=== PATIENT | female | born 1950 | race Caucasian/White ===

== ENCOUNTER 2020-11-01 11:09 | Outpatient (REF) | payer MEDICARE, SELFPAY ==
[2020-11-01 13:34] LABS: Alanine Aminotransferase 13 U/L (0-31); Albumin Level 4.2 g/dL (3.5-5.0); Alkaline Phosphatase 58 U/L (39-117); Anion Gap 11 (12-20); Aspartate Amino Transferase 14 U/L (5-31); Bilirubin Total 0.5 mg/dL (0.0-1.0); Blood Urea Nitrogen 15 mg/dL (9-16); Calcium 9.5 mg/dL (8.4-10.2); Carbon Dioxide 30 mmol/L (22-29); Chloride 105 mmol/L (96-108); Estimated Glomerular Filt Rate 50; Glucose Random 93 mg/dL (60-115); Potassium 4.3 mmol/L (3.3-5.1); Sodium 142 mmol/L (135-145)
[2020-11-01 14:00] LABS: Thyroid Stimulating Hormone 1.57 uIU/mL (0.32-4.0)
== END 2020-11-01 11:10 | disposition home or self-care (01) ==
LOC: HO.LAB 11:09
PROVIDERS: PCP Internal Medicine; Visit Provider Internal Medicine
DX: Z00.00 Encounter for general adult medical examination without abnormal findings (principal); E03.9 Hypothyroidism, unspecified; I12.9 Hypertensive chronic kidney disease with stage 1 through stage 4 chronic kidney disease, or unspecified chronic kidney disease; N18.9 Chronic kidney disease, unspecified; I95.1 Orthostatic hypotension
CPT/HCPCS: 36415; 80053; 84443

== ENCOUNTER 2021-01-10 08:38 | Outpatient (REF) | payer MEDICARE, SELFPAY ==
[2021-01-10 09:52] LABS: Anion Gap 11 (12-20); Blood Urea Nitrogen 20 mg/dL (9-16); Calcium 8.9 mg/dL (8.4-10.2); Carbon Dioxide 29 mmol/L (22-29); Chloride 106 mmol/L (96-108); Estimated Glomerular Filt Rate 54; Potassium 4.1 mmol/L (3.3-5.1); Sodium 142 mmol/L (135-145)
== END 2021-01-10 08:39 | disposition home or self-care (01) ==
LOC: HO.LAB 08:38
PROVIDERS: PCP Internal Medicine; Visit Provider Internal Medicine Hypertension Specialist
DX: E87.6 Hypokalemia (principal); I15.2 Hypertension secondary to endocrine disorders
CPT/HCPCS: 36415; 80051; 82310; 82565; 84520

== ENCOUNTER 2021-06-04 08:04 | Outpatient (REF) | payer MEDICARE, SELFPAY ==
[2021-06-04 09:54] LABS: Basophils Absolute Auto 0.1 X10*3/uL (0.0-0.2); Basophils Percent Auto 1.1 % (0-2); Eosinophils Absolute Auto 0.2 X10*3/uL (0.0-0.4); Hemoglobin 12.3 g/dl (12.0-16.0); Imm Gran Abs Auto 0.01 X10*3/uL (0.00-0.03); Imm Gran Pct Auto 0.2 % (0.0-0.4); MANUAL DIFF FLAG SCAN; Mean Corpuscular Volume 92.8 fL (80-98); Platelet Count 145 X10*3/uL (160-400); SCAN SMEAR FLAG 1
[2021-06-04 09:56] LABS: Eosinophils Percent Auto 4.2 % (0-4); Hematocrit 38.6 % (37-47); Lymphocytes Absolute Auto 1.7 X10*3/uL (1.2-4.9); Lymphocytes Percent Auto 37.3 % (20-40); Mean Corpuscular HGB Conc 31.9 g/dl (31.0-35.0); Mean Corpuscular Hemoglobin 29.6 pg (27.0-33.0); Mean Platelet Volume 13.5 fL (9.4-12.3); Monocytes Absolute Auto 0.4 X10*3/uL (0.1-1.2); Neutrophils Absolute Auto 2.2 X10*3/uL (2.0-8.3); Neutrophils Percent Auto 49.2 % (45-73); Red Blood Count 4.16 X10*6/uL (4.20-5.50); Red Cell Distribution Width 13.6 % (11.0-16.0); White Blood Count 4.5 X10*3/uL (4.8-10.8)
[2021-06-04 10:04] LABS: Alanine Aminotransferase 13 U/L (0-31); Albumin Level 3.9 g/dL (3.5-5.0); Alkaline Phosphatase 55 U/L (39-117); Anion Gap 11 (12-20); Aspartate Amino Transferase 15 U/L (5-31); Bilirubin Total 0.6 mg/dL (0.0-1.0); Blood Urea Nitrogen 23 mg/dL (9-16); Carbon Dioxide 27 mmol/L (22-29); Chloride 106 mmol/L (96-108); Cholesterol 181 mg/dL; Estimated Glomerular Filt Rate 39; Glucose Random 92 mg/dL (60-115); HDL Cholesterol 69 mg/dL; LDL Cholesterol Calculated 98 mg/dl; Potassium 4.4 mmol/L (3.3-5.1); Sodium 140 mmol/L (135-145); Total Protein 6.4 g/dL (6.5-8.0); Triglycerides 72 mg/dL
[2021-06-04 10:37] LABS: PLT ABN DIST 1
[2021-06-04 12:58] LABS: SLIDE REVIEW VERIFIED
== END 2021-06-04 08:05 | disposition home or self-care (01) ==
LOC: HO.LAB 08:04
PROVIDERS: PCP Internal Medicine; Visit Provider Internal Medicine
DX: I12.9 Hypertensive chronic kidney disease with stage 1 through stage 4 chronic kidney disease, or unspecified chronic kidney disease (principal); E03.9 Hypothyroidism, unspecified; I95.1 Orthostatic hypotension; N18.9 Chronic kidney disease, unspecified
CPT/HCPCS: 36415; 80053; 80061; 84443; 85025

== ENCOUNTER 2021-08-13 07:55 | Outpatient (REF) | payer MEDICARE, SELFPAY ==
[2021-08-13 09:16] LABS: Anion Gap 10 (12-20); Blood Urea Nitrogen 24 mg/dL (9-16); Calcium 8.6 mg/dL (8.4-10.2); Carbon Dioxide 29 mmol/L (22-29); Chloride 106 mmol/L (96-108); Estimated Glomerular Filt Rate 51; Glucose Random 95 mg/dL (60-115); Potassium 4.1 mmol/L (3.3-5.1); Sodium 141 mmol/L (135-145)
== END 2021-08-13 07:56 | disposition home or self-care (01) ==
LOC: HO.LAB 07:55
PROVIDERS: PCP Internal Medicine; Visit Provider Internal Medicine Hypertension Specialist
DX: I95.1 Orthostatic hypotension (principal)
CPT/HCPCS: 36415; 80048

== ENCOUNTER 2021-09-10 07:12 | Outpatient (REF) | payer MEDICARE, SELFPAY ==
[2021-09-10 07:30] LABS: MANUAL DIFF FLAG NO
[2021-09-10 08:03] LABS: Basophils Absolute Auto 0.1 X10*3/uL (0.0-0.2); Basophils Percent Auto 1.4 % (0-2); Eosinophils Absolute Auto 0.2 X10*3/uL (0.0-0.4); Eosinophils Percent Auto 4.6 % (0-4); Hematocrit 43.1 % (37.0-47.0); Hemoglobin 13.5 g/dl (12.0-16.0); Imm Gran Abs Auto 0.01 X10*3/uL (0.00-0.03); Imm Gran Pct Auto 0.2 % (0.0-0.4); Lymphocytes Absolute Auto 1.7 X10*3/uL (1.2-4.9); Lymphocytes Percent Auto 39.5 % (20-40); Mean Corpuscular HGB Conc 31.3 g/dl (31.0-35.0); Mean Corpuscular Hemoglobin 29.1 pg (27.0-33.0); Mean Corpuscular Volume 92.9 fL (80.0-98.0); Mean Platelet Volume 12.7 fL (9.4-12.3); Monocytes Absolute Auto 0.4 X10*3/uL (0.1-1.2); Monocytes Percent Auto 8.3 % (2-11); Platelet Count 168 X10*3/uL (160-400); Red Blood Count 4.64 X10*6/uL (4.20-5.50); Red Cell Distribution Width 13.4 % (11.0-16.0); White Blood Count 4.3 X10*3/uL (4.8-10.8)
[2021-09-10 08:19] LABS: Alanine Aminotransferase 20 U/L (0-31); Albumin Level 4.2 g/dL (3.5-5.0); Alkaline Phosphatase 57 U/L (39-117); Anion Gap 11 (12-20); Aspartate Amino Transferase 19 U/L (5-31); Bilirubin Total 0.5 mg/dL (0.0-1.0); Blood Urea Nitrogen 25 mg/dL (9-16); Calcium 9.4 mg/dL (8.4-10.2); Carbon Dioxide 29 mmol/L (22-29); Chloride 107 mmol/L (96-108); Estimated Glomerular Filt Rate 39; Glucose Random 97 mg/dL (60-115); Potassium 4.5 mmol/L (3.3-5.1); Sodium 142 mmol/L (135-145); Total Protein 7.1 g/dL (6.5-8.0)
== END 2021-09-10 07:13 | disposition home or self-care (01) ==
LOC: HO.LAB 07:12
PROVIDERS: PCP Internal Medicine; Visit Provider Internal Medicine
DX: E03.9 Hypothyroidism, unspecified (principal); E78.00 Pure hypercholesterolemia, unspecified; I12.9 Hypertensive chronic kidney disease with stage 1 through stage 4 chronic kidney disease, or unspecified chronic kidney disease; I95.1 Orthostatic hypotension
CPT/HCPCS: 36415; 80053; 85025

== ENCOUNTER 2022-01-10 08:22 | Outpatient (REF) | payer MEDICARE, SELFPAY ==
[2022-01-10 09:23] LABS: Alanine Aminotransferase 16 U/L (0-31); Alkaline Phosphatase 59 U/L (39-117); Anion Gap 13 (12-20); Aspartate Amino Transferase 16 U/L (5-31); Bilirubin Total 0.8 mg/dL (0.0-1.0); Blood Urea Nitrogen 14 mg/dL (9-16); Calcium 9.4 mg/dL (8.4-10.2); Carbon Dioxide 26 mmol/L (22-29); Chloride 105 mmol/L (96-108); Estimated Glomerular Filt Rate 56; Glucose Random 96 mg/dL (60-115); Potassium 4.8 mmol/L (3.3-5.1); Sodium 139 mmol/L (135-145); Total Protein 6.9 g/dL (6.5-8.0)
[2022-01-10 09:45] LABS: Thyroid Stimulating Hormone 0.97 uIU/mL (0.32-4.0)
== END 2022-01-10 08:23 | disposition home or self-care (01) ==
LOC: HO.LAB 08:22
PROVIDERS: PCP Internal Medicine; Visit Provider Internal Medicine
DX: E03.9 Hypothyroidism, unspecified (principal); E78.00 Pure hypercholesterolemia, unspecified; I12.9 Hypertensive chronic kidney disease with stage 1 through stage 4 chronic kidney disease, or unspecified chronic kidney disease; N18.9 Chronic kidney disease, unspecified; I95.1 Orthostatic hypotension
CPT/HCPCS: 36415; 80053; 84443

== ENCOUNTER 2022-04-29 07:41 | Outpatient (REF) | payer MEDICARE, SELFPAY ==
[2022-04-29 08:30] LABS: Anion Gap 13 (12-20); Blood Urea Nitrogen 15 mg/dL (9-16); Calcium 8.8 mg/dL (8.4-10.2); Carbon Dioxide 27 mmol/L (22-29); Chloride 106 mmol/L (96-108); Estimated Glomerular Filt Rate 59; Glucose Random 98 mg/dL (60-115); Potassium 4.5 mmol/L (3.3-5.1); Sodium 141 mmol/L (135-145)
== END 2022-04-29 07:42 | disposition home or self-care (01) ==
LOC: HO.LAB 07:41
PROVIDERS: PCP Internal Medicine; Visit Provider Internal Medicine Hypertension Specialist
DX: I10 Essential (primary) hypertension (principal)
CPT/HCPCS: 36415; 80048

== ENCOUNTER 2022-06-03 07:31 | Outpatient (REF) | payer MEDICARE, SELFPAY ==
[2022-06-03 07:53] LABS: MANUAL DIFF FLAG NO
[2022-06-03 08:16] LABS: Basophils Absolute Auto 0.1 X10*3/uL (0.0-0.2); Basophils Percent Auto 1.5 % (0-2); Eosinophils Absolute Auto 0.2 X10*3/uL (0.0-0.4); Eosinophils Percent Auto 4.9 % (0-4); Hematocrit 40.4 % (37.0-47.0); Hemoglobin 12.8 g/dl (12.0-16.0); Imm Gran Abs Auto 0.01 X10*3/uL (0.00-0.03); Imm Gran Pct Auto 0.2 % (0.0-0.4); Lymphocytes Absolute Auto 1.5 X10*3/uL (1.2-4.9); Lymphocytes Percent Auto 36.1 % (20-40); Mean Corpuscular HGB Conc 31.7 g/dl (31.0-35.0); Mean Corpuscular Volume 91.4 fL (80.0-98.0); Mean Platelet Volume 12.4 fL (9.4-12.3); Monocytes Absolute Auto 0.4 X10*3/uL (0.1-1.2); Monocytes Percent Auto 8.5 % (2-11); Neutrophils Percent Auto 48.8 % (45-73); Platelet Count 137 X10*3/uL (160-400); Red Blood Count 4.42 X10*6/uL (4.20-5.50); Red Cell Distribution Width 13.5 % (11.0-16.0); White Blood Count 4.1 X10*3/uL (4.8-10.8)
[2022-06-03 08:55] LABS: Alanine Aminotransferase 16 U/L (0-31); Albumin Level 4.1 g/dL (3.5-5.0); Alkaline Phosphatase 60 U/L (39-117); Anion Gap 14 (12-20); Aspartate Amino Transferase 16 U/L (5-31); Bilirubin Total 0.5 mg/dL (0.0-1.0); Blood Urea Nitrogen 18 mg/dL (9-16); Calcium 8.7 mg/dL (8.4-10.2); Carbon Dioxide 26 mmol/L (22-29); Chloride 105 mmol/L (96-108); Cholesterol 182 mg/dL; Estimated Glomerular Filt Rate 53; Glucose Random 93 mg/dL (60-115); HDL Cholesterol 73 mg/dL; LDL Cholesterol Calculated 99 mg/dl; Potassium 4.3 mmol/L (3.3-5.1); Sodium 141 mmol/L (135-145); Total Protein 6.9 g/dL (6.5-8.0); Triglycerides 50 mg/dL
[2022-06-03 09:02] LABS: Thyroid Stimulating Hormone 1.15 uIU/mL (0.32-4.0)
== END 2022-06-03 07:32 | disposition home or self-care (01) ==
LOC: HO.LAB 07:31
PROVIDERS: PCP Internal Medicine; Visit Provider Internal Medicine
DX: E03.8 Other specified hypothyroidism (principal); H91.90 Unspecified hearing loss, unspecified ear; I10 Essential (primary) hypertension; I95.1 Orthostatic hypotension
CPT/HCPCS: 36415; 80053; 80061; 84443; 85025

== ENCOUNTER 2022-11-27 11:00 | Outpatient (REF) | payer MEDICARE, SELFPAY ==
[2022-11-27 11:13] LABS: MANUAL DIFF FLAG NO
[2022-11-27 12:05] LABS: Basophils Percent Auto 0.7 % (0-2); Eosinophils Absolute Auto 0.1 X10*3/uL (0.0-0.4); Eosinophils Percent Auto 1.7 % (0-4); Hematocrit 42.5 % (37.0-47.0); Hemoglobin 13.4 g/dl (12.0-16.0); Imm Gran Abs Auto 0.01 X10*3/uL (0.00-0.03); Imm Gran Pct Auto 0.2 % (0.0-0.4); Lymphocytes Absolute Auto 1.3 X10*3/uL (1.2-4.9); Lymphocytes Percent Auto 29.3 % (20-40); Mean Corpuscular HGB Conc 31.5 g/dl (31.0-35.0); Mean Corpuscular Hemoglobin 28.8 pg (27.0-33.0); Mean Corpuscular Volume 91.2 fL (80.0-98.0); Mean Platelet Volume 13.2 fL (9.4-12.3); Monocytes Absolute Auto 0.4 X10*3/uL (0.1-1.2); Monocytes Percent Auto 7.6 % (2-11); Neutrophils Absolute Auto 2.8 x10*3/uL (2.0-8.3); Neutrophils Percent Auto 60.5 % (45-73); Platelet Count 151 X10*3/uL (160-400); Red Blood Count 4.66 X10*6/uL (4.20-5.50); Red Cell Distribution Width 13.3 % (11.0-16.0); White Blood Count 4.6 X10*3/uL (4.8-10.8)
[2022-11-27 13:23] LABS: Alanine Aminotransferase 17 U/L (0-31); Albumin Level 4.2 g/dL (3.5-5.0); Alkaline Phosphatase 58 U/L (39-117); Anion Gap 12 (12-20); Aspartate Amino Transferase 17 U/L (5-31); Bilirubin Total 0.8 mg/dL (0.0-1.0); Blood Urea Nitrogen 19 mg/dL (9-16); Calcium 9.7 mg/dL (8.4-10.2); Carbon Dioxide 30 mmol/L (22-29); Chloride 105 mmol/L (96-108); Estimated Glomerular Filt Rate 57; Glucose Random 89 mg/dL (60-115); Potassium 4.8 mmol/L (3.3-5.1); Sodium 142 mmol/L (135-145); Total Protein 6.9 g/dL (6.5-8.0)
== END 2022-11-27 11:01 | disposition home or self-care (01) ==
LOC: HO.LAB 11:00
PROVIDERS: PCP Internal Medicine; Visit Provider Internal Medicine
DX: D64.89 Other specified anemias (principal); E03.8 Other specified hypothyroidism; I10 Essential (primary) hypertension; I95.1 Orthostatic hypotension
CPT/HCPCS: 36415; 80053; 85025

== ENCOUNTER 2022-12-23 07:51 | Outpatient (REF) | payer MEDICARE, SELFPAY ==
[2022-12-23 08:13] LABS: MANUAL DIFF FLAG NO
[2022-12-23 08:22] LABS: Basophils Absolute Auto 0.1 X10*3/uL (0.0-0.2); Basophils Percent Auto 1.2 % (0-2); Eosinophils Absolute Auto 0.2 X10*3/uL (0.0-0.4); Eosinophils Percent Auto 4.7 % (0-4); Hematocrit 41.4 % (37.0-47.0); Hemoglobin 13.3 g/dl (12.0-16.0); Imm Gran Abs Auto 0.01 X10*3/uL (0.00-0.03); Imm Gran Pct Auto 0.2 % (0.0-0.4); Lymphocytes Absolute Auto 1.5 X10*3/uL (1.2-4.9); Mean Corpuscular HGB Conc 32.1 g/dl (31.0-35.0); Mean Corpuscular Hemoglobin 29.4 pg (27.0-33.0); Mean Corpuscular Volume 91.6 fL (80.0-98.0); Mean Platelet Volume 12.8 fL (9.4-12.3); Monocytes Absolute Auto 0.4 X10*3/uL (0.1-1.2); Monocytes Percent Auto 8.2 % (2-11); Neutrophils Absolute Auto 2.2 x10*3/uL (2.0-8.3); Neutrophils Percent Auto 50.7 % (45-73); Platelet Count 152 X10*3/uL (160-400); Red Blood Count 4.52 X10*6/uL (4.20-5.50); Red Cell Distribution Width 13.4 % (11.0-16.0); White Blood Count 4.3 X10*3/uL (4.8-10.8)
[2022-12-23 09:22] LABS: Alanine Aminotransferase 18 U/L (0-31); Albumin Level 3.9 g/dL (3.5-5.0); Alkaline Phosphatase 60 U/L (39-117); Anion Gap 12 (12-20); Aspartate Amino Transferase 16 U/L (5-31); Bilirubin Total 1.1 mg/dL (0.0-1.0); Blood Urea Nitrogen 18 mg/dL (9-16); Calcium 9.1 mg/dL (8.4-10.2); Carbon Dioxide 28 mmol/L (22-29); Chloride 108 mmol/L (96-108); Cholesterol 193 mg/dL; Estimated Glomerular Filt Rate 50; Glucose Random 96 mg/dL (60-115); HDL Cholesterol 75 mg/dL; LDL Cholesterol Calculated 105 mg/dl; Potassium 4.6 mmol/L (3.3-5.1); Sodium 143 mmol/L (135-145); Total Protein 6.4 g/dL (6.5-8.0); Triglycerides 67 mg/dL
[2022-12-23 09:30] LABS: Thyroid Stimulating Hormone 0.62 uIU/mL (0.32-4.0)
== END 2022-12-23 07:52 | disposition home or self-care (01) ==
LOC: HO.LAB 07:51
PROVIDERS: PCP Internal Medicine; Visit Provider Internal Medicine
DX: D69.49 Other primary thrombocytopenia (principal); E03.8 Other specified hypothyroidism; I10 Essential (primary) hypertension; I95.1 Orthostatic hypotension; R19.5 Other fecal abnormalities
CPT/HCPCS: 36415; 80053; 80061; 84443; 85025

== ENCOUNTER 2023-02-06 08:55 | Day surgery (SDC) | payer MEDICARE, SELFPAY ==
--- NOTE | 2023-02-05 11:04 | HO.ANESPROP2 ---
HPI - Anesthesia Eval Consult details Narrative: 73yo F for Colonoscopy PMFSH Past Medical History Medical History Blind left eye CKD (chronic kidney disease) History of fracture of wrist History of orthostatic hypotension History of palpitations HTN (hypertension) Hypothyroid Leukopenia Thrombocytopenia Surgical History Surgical History History of surgery on wrist Social History Social History Patient Tobacco Use Status: Former Tobacco user Are you DNR?: No Advance Directives: No Advance Directives Information Provided: Yes Nutrition Risks: No Nutritional Risk Patient : Yes : Yes Poor oral hygiene: Yes Meds Allergies Allergy/AdvReac Type Severity Reaction Status Date / Time diltiazem [From CARDIZEM] Allergy Intermediate RASH Verified 03/21/22 06:12 ITCHING oxycodone [OXYCODONE] Allergy Unknown NAUSEA & Verified 03/21/22 06:12 VOMITING Home Medications Medication Instructions Recorded Confirmed Last Taken Type levothyroxine 112 mcg tablet 1 tab PO DAILY 03/15/22 03/15/22 02/06/23 History losartan 50 mg tablet 1 tab PO DAILY 03/15/22 03/15/22 02/04/23 History midodrine 2.5 mg tablet 1 tab PO BID 03/15/22 03/15/22 02/06/23 History metoprolol succinate 25 mg 25 mg PO DAILY 02/06/23 02/06/23 02/06/23 History tablet,extended release 24 hr Exam Exam Date and Time: February 05, 2023 1104 Pertinent Lab Results Pertinent Lab Results: Laboratory Tests 12/23/22 12/23/22 08:12 08:12 WBC 4.3 L Hgb 13.3 Hct 41.4 Sodium 143 Potassium 4.6 Chloride 108 Carbon Dioxide 28 BUN 18 H Creatinine 1.08 Cholesterol 193 Assessment and Plan Assessment Anesthesia Assessment: Chart Reviewed
[2023-02-06 09:02] VITALS: BMI 25.2
[2023-02-06 09:08] VITALS: BP 197/93; PULSE 99; RESP 18; TEMP 36.1; O2SAT 98
[2023-02-06] MEDS: Lactated Ringers 1,000 ML 100 ML IVCONT (09:34)
--- NOTE | 2023-02-06 09:37 | PC.NURSE ---
anesthesia aware of b/p
--- NOTE | 2023-02-06 09:56 | PC.NURSE ---
fleets enema given yellow results
[2023-02-06 10:06] VITALS: BP 184/82; PULSE 77; RESP 18; TEMP 36.3; O2SAT 97
--- NOTE | 2023-02-06 10:57 | MHC.SHP ---
Pre-Procedural Eval Section A Date of Service: 02/06/23 Section B Chief Complaint: Other fecal abnormalities Details of Present Illness: see H*P Relevant Family History (Specify if Yes): No Relevant Social History: None Present Medications: see Short Stay Collaborative assessment Medical History: No relevant PMH History of Previous Operations: No relevant previous surgery Allergies: Allergies Allergy/AdvReac Type Severity Reaction Status Date / Time diltiazem [From CARDIZEM] Allergy Intermediate RASH Verified 03/21/22 06:12 ITCHING oxycodone [OXYCODONE] Allergy Unknown NAUSEA & Verified 03/21/22 06:12 VOMITING Review of Systems Sugical H&P ROS: Negative: Constitution, Cardiovascular, Respiratory, Neurological, Psychiatric, Hem-Onc, Allergic/Immunologic, Gastrointestinal, Genitourinary, Musculoskeletal, Integumentary, Endocrine and Eyes/Ears/Nose/Throat Exam Surgical H&P Exam: Normal: HEENT, Normal: Heart, Normal: Lungs, Normal: Extremities, Normal: Abdomen, Normal: Skin and Normal: Neurological Plan Diagnosis/Plan: Unchanged I have reviewed the history and physical and performed a pertinent physical examination on my patient. No changes have occurred unless specified. Time Spent With Patient Time: Total time managing care of this patient today ____ minutes.
--- NOTE | 2023-02-06 11:30 | PM.OP ---
Brief Operative Note Date of Service: 02/06/23 Pre-op diagnosis: abnl stool dna test Post-op diagnosis: same Surgeon: Mike Mejias Anesthesia: MAC Was an Steel Post Installer used for this Procedure?: No Estimated blood loss (mL): 0 Pathology: none sent Condition: stable Disposition: PACU
[2023-02-06 11:33] VITALS: BP 117/64; PULSE 81; RESP 20; TEMP 37; O2SAT 99
[2023-02-06 11:48] VITALS: BP 164/83; PULSE 71; RESP 20; O2SAT 97
--- NOTE | 2023-02-06 13:26 | OP_ITS ---
DATE OF SERVICE: 02/06/2023 SURGEON: Mike Mejias MD INDICATIONS: Abnormal stool DNA testing. PREOPERATIVE DIAGNOSIS: POSTOPERATIVE DIAGNOSIS: PROCEDURE PERFORMED: Colonoscopy to the terminal ileum. ESTIMATED BLOOD LOSS: COMPLICATIONS: ANESTHESIA: Monitored anesthesia care. ASSISTANTS: SPECIMENS: DESCRIPTION OF PROCEDURE: A history and physical was performed. The risks and benefits of the procedure were explained to the patient. Informed consent was obtained. The patient was placed in the left lateral decubitus position. A digital rectal exam was performed and was found to be normal. The Olympus pediatric video colonoscope was introduced into the rectum and advanced to the cecum. The cecum was identified by transillumination, palpation, and identification of ileocecal valve. Examination was performed. The scope was removed. She tolerated the procedure well and was returned to the recovery area in stable condition. FINDINGS: The terminal ileum was examined and appeared normal. The visualized colonic mucosa was normal. The quality of the prep was good. No polyps were identified. Retroflexed examination was normal. IMPRESSION: Normal colonoscopy. RECOMMENDATION: 1. Follow up as needed. 2. Repeat colonoscopy is recommended in 10 years for average risk individuals. This will be optional based on the patient's age. MD TAYLOR Sharp/GIRISH / [id number]
== END 2023-02-06 12:30 | disposition home or self-care (01) ==
PROVIDERS: PCP Internal Medicine; Visit Provider Internal Medicine Gastroenterology
PROC: 0DJD8ZZ Inspection of Lower Intestinal Tract, Via Natural or Artificial Opening Endoscopic (ICD-10-PCS; CPT 45378; principal; 2023-02-06 10:20)
DX: R19.5 Other fecal abnormalities (principal); I12.9 Hypertensive chronic kidney disease with stage 1 through stage 4 chronic kidney disease, or unspecified chronic kidney disease; N18.9 Chronic kidney disease, unspecified; Z79.899 Other long term (current) drug therapy; Z88.5 Allergy status to narcotic agent; Z88.8 Allergy status to other drugs, medicaments and biological substances
CPT/HCPCS: 45378

== ENCOUNTER → 2023-02-08 08:53 | Outpatient (BNVA) | payer MEDICARE, SELFPAY | PROVIDERS: PCP Internal Medicine; Referring Provider Internal Medicine; Visit Provider Internal Medicine | DX: R07.2 Precordial pain (principal); I10 Essential (primary) hypertension; Z86.79 Personal history of other diseases of the circulatory system; Z82.49 Family history of ischemic heart disease and other diseases of the circulatory system | CPT/HCPCS: 93005; 99202 ==

== ENCOUNTER → 2023-04-02 07:52 | Outpatient (REF) | payer MEDICARE, SELFPAY ==
--- NOTE | ~2023-04-02 | NM_ITS ---
EXERCISE MYOCARDIAL PERFUSION STUDY INDICATION: Chest pain, assess for coronary disease ischemia TECHNIQUE: The patient was brought in for an exercise perfusion study on 04/02/2023. Patient performed exercise as per Titi protocol and was injected 25 mCi of sestamibi once target heart rate was achieved. Images were obtained using the SPECT gamma camera interlaced with the gating device. Images were obtained in supine position. Resting perfusion study was performed on 04/04/2023. Patient was administered 25 mCi of sestamibi intravenously at rest. Images were then obtained in supine position. Images were processed with the software and compared side to side in short axis, horizontal long axis and vertical long axis views. Total DLP 75mGy-cm. FINDINGS: Raw images were reviewed. The stress perfusion study showed no significant perfusion abnormality. Both uncorrected as well as CT attenuation corrected images were reviewed. The gated study shows normal LV systolic function with calculated LVEF of 68%. LV cavity is normal in size. The gated study shows normal wall thickening and contraction of segments. Resting study shows no significant perfusion abnormality. Gating at rest reveals normal wall motion with ejection fraction at 51%. The findings are consistent with no clear reversible or fixed perfusion abnormality. NM/NM lucille perf SPECT rest & str IMPRESSION: 1. Myocardial perfusion imaging study shows normal myocardial perfusion. 2. Gated LVEF is 68% during stress and 50% during rest. 3. Transient ischemic dilatation not present. EKG component of the test reported separately.
--- NOTE | 2023-04-02 07:56 | CA_ITS ---
Acquisition Time: 2023-04-02 08:42:09 Total Exercise Time: 00:05:31 Test Indications: CP Medications: LEVOTHYROXINE LOSARTAN METOPROLOL MIDODRINE Protocol: VIVI Max HR: 141 BPM 95% of Pred: 147 BPM Max BP: 190/090 mmHG Max Work Load: 7.0 METS Exercise stess test exercise 5 min 31 sec of Vivi protocol achieving 95% MPHR, with mild SOB, no chest dsicomfort, with isolated PVCs and PACs, with normotensive response to exericse, without EKG changes. Nuclear images pending. Test reviewed with Dr. Sepulveda. Pt has resting HTN 158/78. Max during exercise 178/100 and max [id number]. Did not take her medications today. PT reports no symptoms. Reports baseline is often in 170s for systolic. Referred By: Nazanin Sepulveda Overread By: NAZANIN SEPULVEDA
--- NOTE | 2023-04-02 07:56 | CA_ITS ---
Transthoracic Echocardiogram Patient (Last, First, Middle): Annie Kaufman, Gender: Female Date of : 1950 Age: 73 Procedure Date: 04/02/2023 Procedure Type: Transthoracic Echocardiogram Location: OP Height: 170.18 cm Weight: 63.5 kg BSA: 1.74 m2 Heart Rate: 74 bpm BP: 148 / 80 mmHg Flume Worker: SB Referring MD: Garland Alegria MD Student Outreach Coordinator: Chito Lira MD Symptoms: I25.10 - Atherosclerotic heart disease of [place] coronary artery without... Study Quality: Adequate ECG Rhythm: Sinus Conclusions: - 1. Mildly reduced LV ejection fraction with LVEF of 45-50% 2. Normal cardiac valvular Dopplers 3. Small circumferential pericardial effusion Findings Left Ventricle Normal left ventricular cavity size. There is normal left ventricular wall thickness. The left ventricular systolic function is mildly decreased. There is mild global hypokinesis. Spectral Doppler is indicative of an impaired relaxation filling pattern. E/E prime ratio is between 8 and 15 consistent with indeterminate filling pressures. Right Ventricle Normal right ventricular cavity size and systolic function. Atria The left atrium is likely dilated. There is no evidence of interatrial shunt. The right atrium is normal in size. Aortic Valve Normal aortic valve structure and function. There is no aortic valve stenosis. There is no aortic valve regurgitation. Mitral Valve Normal mitral valve structure and function. There is trace mitral valve regurgitation. There is no mitral valve stenosis. Pulmonic Valve The pulmonic valve is likely normal. There is mild pulmonic valve regurgitation. Tricuspid Valve Normal tricuspid valve structure. Tricuspid regurgitation envelope is inadequate for calculation of right ventricular systolic pressure. Indeterminate right atrial pressure. Great Vessels All visible segments of the aorta are normal in size. The pulmonary artery was not well visualized. Venous The inferior vena cava is normal in size and collapses greater than 50% with inspiration. Pericardium/Pleural There is a small circumferential pericardial effusion. There are no definitive echocardiographic findings of tamponade physiology. Prior Study Comparison Changes noted compared to prior study dated: 04/13/2017. LV systolic function appears mildly reduced Measurements 2D Linear Measurements IVSd: 1.15 0.6-0.9/0.6-1.0 cm LVIDd: 4.13 3.9-5.3/4.2-5.9 cm LVIDd Index: 2.37 2.4-3.2/2.2-3.1 cm/m2 LVIDs: 3.32 2.0-3.6 cm LVPWd: 1.18 0.7-1.1 cm LA Diam: 4.10 2.7-3.8/3.0-4.0 cm LAIDs Index: 2.36 1.5-2.3 cm/m2 LV Mass: 207.11 67-162/88-224 g LV Mass Index: 119.03 43-95/49-115 g/m2 LVOT Diam: 2.10 3.0+(-)1.3 cm 2D Systolic Function EF Teich: 41.00 >55% EF 4C: 44.60 >55% Mitral Valve MV Pk E: 0.60 MV PK A: 0.85 MV Decel Time: 127.00 E/A: 0.70 E'Lateral: 3.70 E'Medial: 4.90 E/E' Med: 12.20 E/E' Lat: 16.10 PHT: 37.00 MVA PHT: 5.95 Decel Burnett: 4.69 Aortic Valve AoV Pk Duarte: 0.93 AoV Pk Grad: 3.00 FORREST: 2.97 LVOT LVOT Pk Duarte: 0.70 LVOT Mn Duarte: 0.55 LVOT VTI: 0.18 LVOT Pk Grad: 2.00 LVOT Mn Grad: 1.00 LVOT Diam: 2.10 LVOT Area: 3.46 Diastolic Function MV Pk E: 0.60 MV Pk A: 0.85 E/A: 0.70 E'Medial: 4.90 E/E' Med: 12.20 E' Laterial: 3.70 E/E' Lat: 16.10 Right Ventricle TAPSE (mm): 21.30 TVS' Duarte: 15.00 Tricuspid Valve TR Pk Duarte: 2.10 TR Pk Grad: 18.00 RA Press: 3.00 Great Vessels Aorta Sinus of Valsalva: 3.10 2.0-3.5 cm Ao Asc: 3.10 2.1-3.4 cm Pulmonary Valve PV Pk Duarte: 0.88 Peak PV Grad: 3.00 Updated in Other Vendor System with Status of Final Chito Lira MD electronically signed on 04/03/2023 11:59:20 AM with status of Final
== END ==
LOC: HO.CARD 07:52
PROVIDERS: Visit Provider Internal Medicine
DX: R07.2 Precordial pain (principal); I25.10 Atherosclerotic heart disease of native coronary artery without angina pectoris
CPT/HCPCS: 78452; 93017; 93306; A9500

== ENCOUNTER → 2023-04-02 07:56 | Outpatient (BNV) | payer MEDICARE, SELFPAY | PROVIDERS: Visit Provider Internal Medicine Cardiovascular Disease | DX: I37.1 Nonrheumatic pulmonary valve insufficiency (principal); I31.39 Other pericardial effusion (noninflammatory); R06.02 Shortness of breath | CPT/HCPCS: 78452; 93016; 93018; 93306 ==

== ENCOUNTER 2023-04-12 10:57 | Outpatient (REF) | payer MEDICARE, SELFPAY ==
--- NOTE | ~2023-04-12 | XR_ITS ---
EXAMINATION: XR KNEE, BILATERAL CLINICAL INFORMATION: Bilateral knee pain. COMPARISON: 06/13/2018 TECHNIQUE: AP standing view of both knees and sunrise and lateral views of the left knee. FINDINGS: There is no evidence of acute fracture or dislocation of the knees. On standing view there is mild narrowing of the medial joint space compartment of the right knee. There is a small left knee effusion. No destructive bony lesions identified. There are prominent vascular calcifications present. XR/XR knee standing BI IMPRESSION: Small left knee effusion. Mild narrowing of the right knee medial joint space.
--- NOTE | ~2023-04-12 | XR_ITS ---
EXAMINATION: XR KNEE, BILATERAL CLINICAL INFORMATION: Bilateral knee pain. COMPARISON: 06/13/2018 TECHNIQUE: AP standing view of both knees and sunrise and lateral views of the left knee. FINDINGS: There is no evidence of acute fracture or dislocation of the knees. On standing view there is mild narrowing of the medial joint space compartment of the right knee. There is a small left knee effusion. No destructive bony lesions identified. There are prominent vascular calcifications present. XR/XR knee LT 2V IMPRESSION: Small left knee effusion. Mild narrowing of the right knee medial joint space.
== END 2023-04-12 10:58 | disposition home or self-care (01) ==
LOC: HO.HOSX 10:57
PROVIDERS: Visit Provider Orthopaedic Surgery
DX: M17.0 Bilateral primary osteoarthritis of knee (principal)
CPT/HCPCS: 73560; 73565; 99202

== ENCOUNTER 2023-04-12 12:23 | Outpatient (AMB) | payer MEDICARE, SELFPAY ==
--- NOTE | 2023-04-12 12:43 | MHC.OFFVIS ---
Intake Vital Signs 04/12/23 12:44 Height 5 ft 5.5 in Weight 150 lb BMI 24.6 Intake Visit Reasons: N/P left knee pain Intake Note: Annie 73 yr old female presents today for her left knee pain. States pain started about 2 months ago. No injury she can recall. States she was having increase pain from sit to stand position only. States currently her pain has improved. She is now only having pain in her medial aspect of knee and pressure behind her knee. States no prior treatment. Allergies diltiazem [From CARDIZEM] Allergy (Intermediate, Verified 04/12/23 12:47) RASH ITCHING oxycodone [OXYCODONE] Allergy (Unknown, Verified 04/12/23 12:47) NAUSEA & VOMITING HPI N/P left knee pain HPI Details Annie is a 73 year old woman who presents with complaints of left knee pain, onset ~2 months ago. She has pain primarily when standing from a seated position, which has improved in the last few weeks as she has been icing her knee. She denies any pain with activity once she is standing or after she has sat down. She localizes her pain primarily in the medial aspect of her knee, along with feeling pressure in he back of her knee. She denies any falls or known injury. She denies any prior treatment. She is unable to take NSAIDs. [facility] Medical History Blind left eye CKD (chronic kidney disease) History of fracture of wrist History of orthostatic hypotension History of palpitations HTN (hypertension) Hypothyroid Leukopenia Thrombocytopenia Surgical History History of surgery on wrist Hx of colonoscopy Family History Mother Heart problem H/O heart bypass surgery Father Heart problem H/O heart bypass surgery Sister Heart problem H/O heart bypass surgery Social History Patient Tobacco Use Status: Former Tobacco user Review of Systems Const All systems reviewed & are unremarkable except as noted in HPI and below Physical Exam Vital Signs: BMI result Body Mass Index 24.6 Const General: no acute distress, alert and awake Orientation/consciousness: patient oriented x3 HEENT Head: Yes normocephalic and Yes atraumatic Eyes EOM: EOMs intact bilaterally Resp Effort & Inspection: normal respiratory effort and able to speak in complete sentences Cardio Jugular venous distension: no JVD Skin General skin exam: turgor normal Rashes: no rashes Neuro General: patient oriented x3 Extrem Other: Left Knee: TTP medial tibial plateau No effusion Normal gait Full ROM Psych Appearance: grossly normal Affect: normal affect Attitude: cooperative Results Reviewed Results Reviewed: I personally reviewed relevant radiographs. Mild bilateral knee osteoarthritis, R>L Assessment & Plan Assessment & Plan (1) Bilateral primary osteoarthritis of knee: Code(s): M17.0 - Bilateral primary osteoarthritis of knee Plan: This is a 73 year old woman with mild bilateral knee OA. She had pain primarily when standing from a seated position, but this has been improving with rest & icing. Her current pain is mild in the medial aspect of her knee. She denies any prior treatment. I discussed her diagnosis and treatment options. No acute intervention warranted. If her symptoms worsen she can follow up to discuss injections or PT, she is unable to take NSAIDs. She can follow up prn. Plan Scribed for Yayo Maldonado MD by Rupert Yo, medical and health services manager, on 04/12/23 at 12:55 PM, EST. Orders: Orders XR knee LT 2V Today M25.569 - Pain in unspecified knee XR knee standing BI Today M25.569 - Pain in unspecified knee Coding Level of Care Code New Pt Level 3 (61724) Diagnoses Bilateral primary osteoarthritis of knee M17.0
[2023-04-12 12:44] VITALS: BMI 24.6
== END 2023-04-12 13:00 | disposition home or self-care (01) ==
PROVIDERS: PCP Internal Medicine; Visit Provider Orthopaedic Surgery
DX: M17.0 Bilateral primary osteoarthritis of knee (principal)
CPT/HCPCS: 99203

== ENCOUNTER 2023-05-05 07:49 | Outpatient (REF) | payer MEDICARE, SELFPAY ==
[2023-05-05 09:10] LABS: Anion Gap 12 (12-20); Blood Urea Nitrogen 29 mg/dL (9-16); Calcium 9.4 mg/dL (8.4-10.2); Carbon Dioxide 26 mmol/L (22-29); Chloride 108 mmol/L (96-108); Estimated Glomerular Filt Rate 38; Glucose Random 98 mg/dL (60-115); Potassium 4.1 mmol/L (3.3-5.1); Sodium 142 mmol/L (135-145)
== END 2023-05-05 07:50 | disposition home or self-care (01) ==
LOC: HO.LAB 07:49
PROVIDERS: PCP Internal Medicine; Visit Provider Internal Medicine Hypertension Specialist
DX: I95.1 Orthostatic hypotension (principal)
CPT/HCPCS: 36415; 80048

== ENCOUNTER 2023-06-13 09:12 | Outpatient (REF) | payer MEDICARE, SELFPAY ==
[2023-06-13 09:29] LABS: MANUAL DIFF FLAG NO
[2023-06-13 10:14] LABS: Basophils Absolute Auto 0.1 X10*3/uL (0.0-0.2); Basophils Percent Auto 1.6 % (0-2); Eosinophils Absolute Auto 0.1 X10*3/uL (0.0-0.4); Eosinophils Percent Auto 2.5 % (0-4); Hematocrit 41.8 % (37.0-47.0); Imm Gran Abs Auto 0.01 X10*3/uL (0.00-0.03); Imm Gran Pct Auto 0.2 % (0.0-0.4); Lymphocytes Absolute Auto 1.4 X10*3/uL (1.2-4.9); Lymphocytes Percent Auto 32.4 % (20-40); Mean Corpuscular HGB Conc 31.1 g/dl (31.0-35.0); Mean Corpuscular Hemoglobin 29.1 pg (27.0-33.0); Mean Corpuscular Volume 93.7 fL (80.0-98.0); Mean Platelet Volume 12.8 fL (9.4-12.3); Monocytes Absolute Auto 0.3 X10*3/uL (0.1-1.2); Monocytes Percent Auto 6.7 % (2-11); Neutrophils Absolute Auto 2.5 x10*3/uL (2.0-8.3); Neutrophils Percent Auto 56.6 % (45-73); Platelet Count 148 X10*3/uL (160-400); Red Blood Count 4.46 X10*6/uL (4.20-5.50); White Blood Count 4.4 X10*3/uL (4.8-10.8)
[2023-06-13 11:41] LABS: Alanine Aminotransferase 12 U/L (0-31); Albumin Level 4.1 g/dL (3.5-5.0); Alkaline Phosphatase 55 U/L (39-117); Anion Gap 13 (12-20); Aspartate Amino Transferase 13 U/L (5-31); Bilirubin Total 0.7 mg/dL (0.0-1.0); Blood Urea Nitrogen 21 mg/dL (9-16); Calcium 9.5 mg/dL (8.4-10.2); Carbon Dioxide 26 mmol/L (22-29); Chloride 105 mmol/L (96-108); Estimated Glomerular Filt Rate 50; Glucose Random 92 mg/dL (60-115); Potassium 4.2 mmol/L (3.3-5.1); Sodium 140 mmol/L (135-145); Total Protein 7.1 g/dL (6.5-8.0)
[2023-06-13 11:47] LABS: Thyroid Stimulating Hormone 0.43 uIU/mL (0.32-4.0)
== END 2023-06-13 09:13 | disposition home or self-care (01) ==
LOC: HO.LAB 09:12
PROVIDERS: PCP Internal Medicine; Visit Provider Internal Medicine
DX: E03.8 Other specified hypothyroidism (principal); I10 Essential (primary) hypertension; I95.1 Orthostatic hypotension
CPT/HCPCS: 36415; 80053; 84443; 85025

== ENCOUNTER 2023-08-20 10:21 | Outpatient (AMB) | payer MEDICARE, SELFPAY ==
--- NOTE | 2023-08-20 10:26 | MHC.OFFVIS ---
Intake Vital Signs 08/20/23 10:27 Height 5 ft 5.5 in Weight 136 lb 10.986 oz BMI 22.4 BP 168/84 H Blood Pressure Location Lt brachial Position Sitting Pulse 78 Intake Visit Reasons: follow up after testing Intake Note: follow up Accompanied by: Self / Same As Patient Allergies diltiazem [From CARDIZEM] Allergy (Intermediate, Verified 08/20/23 10:28) RASH ITCHING oxycodone [OXYCODONE] Allergy (Unknown, Verified 08/20/23 10:28) NAUSEA & VOMITING Medication List - Last Reconciled 08/20/23 by Garland Alegria MD levothyroxine 112 mcg PO DAILY losartan 100 mg orally; night metoprolol succinate ER 25 mg PO DAILY midodrine 2.5 mg PO BID HPI HPI Comments History of Present Illness Details Annie returns for follow-up. Recently seen in consultation regarding chest discomfort. For the last few months she has been noting some discomfort in the chest that feels like a tightness. However, this happens only when she tries to go back to sleep after urination at nighttime. During the daytime she does not have any of the symptoms. No other complaints like shortness of breath or anything else cardiac sounding. There is a concern because of family history of coronary disease/CABG in her parents and sister. Patient herself has hypertension but does not seem like as well controlled as she also has orthostatic hypotension. Hence she takes both blood pressure medications and midodrine. Today's blood pressure is also high. Several previous blood pressures are also high. She also goes to Dr. Echeverria, nephrology for this reason. Patient states that she takes losartan nighttime. Also on metoprolol XL. [facility] Medical History (Reviewed 04/12/23 @ 12:47 by Radha Ash [facility]) Blind left eye CKD (chronic kidney disease) History of fracture of wrist History of orthostatic hypotension History of palpitations HTN (hypertension) Hypothyroid Leukopenia Thrombocytopenia Surgical History Hx of colonoscopy History of surgery on wrist Family History Mother Heart problem H/O heart bypass surgery Father Heart problem H/O heart bypass surgery Sister Heart problem H/O heart bypass surgery Patient Tobacco Use Status: Former Tobacco user Review of Systems Const Denies weakness ENT Denies dizziness Card Denies chest pain, Denies chest pain with activity, Denies syncope, Denies rapid heart rate, Denies pedal edema, Denies edema, Denies leg edema, Denies lightheadedness, Denies palpitations, Denies dyspnea, Denies dyspnea on exertion and Denies orthopnea Resp Denies cough, Denies dyspnea and Denies dyspnea on exertion GI Denies hematochezia and Denies change in stool character Musc Denies abnormal gait, Denies muscle cramps, Denies muscle weakness, Denies numbness, Denies radiating pain into limb and Denies tingling Neuro Denies abnormal gait, Denies dizziness, Denies syncope, Denies numbness, Denies tingling and Denies weakness Endo Denies palpitations Physical Exam Vital Signs: Last Vital Signs Pulse 78 08/20/23 10:27 BP 168/84 H 08/20/23 10:27 BMI result Body Mass Index 22.4 Const General: comfortable and no acute distress Orientation/consciousness: patient oriented x3 HEENT Other: Unremarkable Head: Yes normal to inspection Neck Neck: Yes normal visual inspection Chest Chest palpation & inspection: normal inspection of the chest Resp Auscultation: clear to auscultation bilaterally Cardio Palpation: normal PMI Heart sounds: S1 normal heart sound present, S2 normal heart sound present, no gallops, no murmurs and no rubs GI Palpation (GI): Soft to palpation Back/Spine/Pelvis Other: unremarkable Skin General skin exam: no rashes or lesions noted Neuro General: patient oriented x3 Extrem General: Yes normal to inspection Psych Mental Status: mental status grossly normal Assessment & Plan Assessment & Plan (1) Precordial chest pain: Code(s): R07.2 - Precordial pain (2) HTN (hypertension): Code(s): I10 - Essential (primary) hypertension Qualifiers: Hypertension type: primary hypertension Qualified Code(s): I10 - Essential (primary) hypertension (3) Orthostatic hypotension: Code(s): I95.1 - Orthostatic hypotension (4) Cardiomyopathy: Code(s): I42.9 - Cardiomyopathy, unspecified Qualifiers: Cardiomyopathy type: unspecified Qualified Code(s): I42.9 - Cardiomyopathy, unspecified Plan Cardiac studies reviewed. Echocardiogram with LVEF of 45-50%. Mild global hypokinesis. In the exercise stress test, she exercised for 7 METS and reached and reached 90% of max predicted heart rate. Blood pressure went up to 190/90 mm Hg. No EKG evidence of ischemia. Perfusion imaging unremarkable. Overall, it appears to me that her symptoms are probably from high blood pressure as opposed to anything else. Somewhat of a difficult situation as she history of orthostatic dizziness as well. I suggested to her that we can probably stop the midodrine completely and just focus only on the high blood pressure as that is probably what is causing her mild cardiomyopathy as well as chest pressure symptoms. She is reluctant as she feels that will make her dizziness worse. Hence, we will try to get a formal tilt-table test. In the interim, at least try to cut back on the midodrine and see how she feels. Will also refer back to Dr. Echeverria, her real estate services administrator. Total time spent including review of data, counseling, documentation, coordination of care-31 minutes. Orders: Orders ECG Tilt Table Test Today I95.1 - Orthostatic hypotension Referrals Nephrology Referral I95.1 - Orthostatic hypotension Coding Level of Care Code Est Pt Level 4 (34081) Diagnoses Precordial chest pain R07.2 Primary hypertension I10 Hypertension type: primary hypertension Orthostatic hypotension I95.1 Cardiomyopathy, unspecified type I42.9 Cardiomyopathy type: unspecified
[2023-08-20 10:27] VITALS: BP 168/84; PULSE 78; BMI 22.4
== END 2023-08-20 10:50 | disposition home or self-care (01) ==
PROVIDERS: PCP Internal Medicine; Visit Provider Internal Medicine
DX: R07.2 Precordial pain (principal); I10 Essential (primary) hypertension; I95.1 Orthostatic hypotension; I42.9 Cardiomyopathy, unspecified
CPT/HCPCS: 99214

== ENCOUNTER → 2023-08-20 10:21 | Outpatient (BNVA) | payer MEDICARE, SELFPAY | PROVIDERS: PCP Internal Medicine; Visit Provider Internal Medicine | DX: R07.2 Precordial pain (principal); I10 Essential (primary) hypertension; I95.1 Orthostatic hypotension; I42.9 Cardiomyopathy, unspecified | CPT/HCPCS: 99212 ==

== ENCOUNTER 2023-08-21 13:19 | Outpatient (AMB) | payer MEDICARE, SELFPAY ==
[2023-08-21 13:41] VITALS: BP 158/90; PULSE 76; O2SAT 97; BMI 22.9
--- NOTE | 2023-08-21 13:41 | A.OFFVIS_ITS ---
Intake Vital Signs 08/21/23 13:41 Height 5 ft 5 in Weight 137 lb 6 oz BMI 22.9 BP 158/90 H Blood Pressure Location Rt brachial Position Sitting Pulse 76 Pulse Source Pulse Oximeter Pulse Oximetry (%) 97 Oxygen Delivery Method Room Air Intake Visit Reasons: CKD Plant Associate Required: No Accompanied by: Self / Same As Patient Allergies diltiazem [From CARDIZEM] Allergy (Intermediate, Verified 08/21/23 13:41) RASH ITCHING oxycodone [OXYCODONE] Allergy (Unknown, Verified 08/21/23 13:41) NAUSEA & VOMITING HPI HPI Comments History of Present Illness Details 73-year-old woman with a history of supi ne hypertension and orthostatic hypotension. Renal function stable. Occasionally she has lightheadedness when she stands up. Currently she is on losartan 100 mg and metoprolol 25 mg q.p.m.. She takes midodrine 2.5 mg twice a day. She underwent a stress test back in January 2023. This is high blood pressure was as high as 190 mmHg. She is being followed by Cardiology and his tilt-table test has been scheduled. [facility] Medical History History of palpitations History of orthostatic hypotension Thrombocytopenia Leukopenia History of fracture of wrist HTN (hypertension) Hypothyroid CKD (chronic kidney disease) Blind left eye Surgical History Hx of colonoscopy History of surgery on wrist Family History Mother Heart problem H/O heart bypass surgery Father Heart problem H/O heart bypass surgery Sister Heart problem H/O heart bypass surgery Social History Patient Tobacco Use Status: Former Tobacco user Review of Systems Const Denies fever(s) and Denies weight loss Card Denies chest pain Resp Denies cough and Denies hemoptysis GI Denies abdominal pain, Denies diarrhea and Denies nausea Musc Denies back pain Neuro Denies focal weakness Physical Exam Vital Signs: Last Vital Signs Pulse 76 08/21/23 13:41 BP 158/90 H 08/21/23 13:41 Pulse Ox 97 08/21/23 13:41 Oxygen Delivery Method Room Air 08/21/23 13:41 BMI result Body Mass Index 22.9 Supine blood pressure 160/80 Sitting blood pressure 160/80 Standing blood pressure 140/80 Const General: comfortable; No acute distress Orientation/consciousness: patient oriented x3 Eyes General: appearance normal, both eyes and all related structures Visual Cee: normal visual cee by confrontation Neck Neck: Yes supple and Yes no JVD Resp Effort & Inspection: normal respiratory effort and respiratory effort not decreased Auscultation: rhonchi Cardio Palpation: no palpable S3 and no palpable S4 Heart sounds: no rubs GI Inspection: Yes normal to inspection Palpation (GI): Soft to palpation Percussion: Yes normal to percussion Auscultation: normal bowel sounds General: Yes no CVA tenderness Back/Spine/Pelvis Back: no CVA tenderness Skin General skin exam: no petechiae and no purpura Neuro General: patient oriented x3 and no focal motor deficits Extrem General: No clubbing and No edema Results Reviewed Results Reviewed: All lab results and stress test was reviewed. Assessment & Plan Assessment & Plan (1) Orthostatic hypotension: Comment: Supine hypertension with orthostatic hypotension. Code(s): I95.1 - Orthostatic hypotension Plan: Based on the current blood pressure readings I would still hold the midodrine. I have advised her to take me midodrine as needed if the systolic blood pressure is less than 110 mm of mercury. In the meantime I will continue losartan 100 mg and metoprolol 20 mg in the evening. Await tilt-table test. Coding Level of Care Code Est Pt Level 3 (70148) Diagnoses Orthostatic hypotension I95.1
== END 2023-08-21 14:03 | disposition home or self-care (01) ==
PROVIDERS: PCP Internal Medicine; Visit Provider Internal Medicine Hypertension Specialist
DX: I95.1 Orthostatic hypotension (principal)
CPT/HCPCS: 99213

== ENCOUNTER → 2023-08-21 13:19 | Outpatient (BNVA) | payer MEDICARE, SELFPAY | PROVIDERS: PCP Internal Medicine; Visit Provider Internal Medicine Hypertension Specialist | DX: I95.1 Orthostatic hypotension (principal) | CPT/HCPCS: 99212 ==

== ENCOUNTER 2023-12-08 07:45 | Outpatient (REF) | payer MEDICARE, SELFPAY ==
[2023-12-08 09:03] LABS: Alanine Aminotransferase 17 U/L (0-31); Alkaline Phosphatase 57 U/L (39-117); Anion Gap 12 (12-20); Aspartate Amino Transferase 17 U/L (5-31); Bilirubin Total 0.7 mg/dL (0.0-1.0); Blood Urea Nitrogen 17 mg/dL (9-16); Calcium 9.2 mg/dL (8.4-10.2); Carbon Dioxide 27 mmol/L (22-29); Chloride 108 mmol/L (96-108); Cholesterol 184 mg/dL (<200); Estimated Glomerular Filt Rate 46; Glucose Random 97 mg/dL (60-115); HDL Cholesterol 78 mg/dL (>40); LDL Cholesterol Calculated 92 mg/dL (<100); Sodium 143 mmol/L (135-145); Total Protein 7.1 g/dL (6.5-8.0); Triglycerides 74 mg/dL (<150)
[2023-12-08 09:21] LABS: Thyroid Stimulating Hormone 0.29 uIU/mL (0.32-4.0); Vitamin D 25-OH Total 29.5 ng/mL (>30)
== END 2023-12-08 07:46 | disposition home or self-care (01) ==
LOC: HO.LAB 07:45
PROVIDERS: PCP Internal Medicine; Visit Provider Internal Medicine
DX: E03.8 Other specified hypothyroidism (principal); I10 Essential (primary) hypertension; I95.1 Orthostatic hypotension; M81.8 Other osteoporosis without current pathological fracture
CPT/HCPCS: 36415; 80053; 80061; 82306; 84443

== ENCOUNTER 2023-12-20 14:23 | Outpatient (AMB) | payer MEDICARE, SELFPAY ==
[2023-12-20 14:24] VITALS: BP 128/88; PULSE 75; O2SAT 110; BMI 24.5
--- NOTE | 2023-12-20 14:24 | HO.NEPHOV ---
HPI HPI Comments History of Present Illness Details 73-year-old woman with a history of supine hypertension and orthostatic hypotension. Renal function stable. Occasionally she has lightheadedness when she stands up. Currently she is on losartan 100 mg and metoprolol 25 mg q.p.m.. She takes midodrine 2.5 mg twice a day. She underwent a stress test back in January 2023. This is high blood pressure was as high as 190 mmHg. She is being followed by Cardiology and his tilt-table test was done No med changes were made [facility] Medical History History of palpitations History of orthostatic hypotension Thrombocytopenia Leukopenia History of fracture of wrist HTN (hypertension) Hypothyroid CKD (chronic kidney disease) Blind left eye Surgical History Hx of colonoscopy History of surgery on wrist Family History Mother Heart problem H/O heart bypass surgery Father Heart problem H/O heart bypass surgery Sister Heart problem H/O heart bypass surgery Social History Patient Tobacco Use Status: Former Tobacco user Vital Signs 12/20/23 14:24 Height 5 ft 5 in Weight 147 lb BMI 24.5 BP 128/88 Blood Pressure Location Lt brachial Position Sitting Pulse 75 Pulse Source Pulse Oximeter Pulse Oximetry (%) 110 H Oxygen Delivery Method Room Air Physical Exam Vital Signs: Last Vital Signs Pulse 75 12/20/23 14:24 BP 128/88 12/20/23 14:24 Pulse Ox 110 H 12/20/23 14:24 Oxygen Delivery Method Room Air 12/20/23 14:24 BMI result Body Mass Index 24.5 Supine blood pressure 130/80 Sitting blood pressure 110/10 Const General: comfortable; No acute distress Orientation/consciousness: patient oriented x3 Eyes General: appearance normal, both eyes and all related structures Visual Cee: normal visual cee by confrontation Neck Neck: Yes supple and Yes no JVD Resp Effort & Inspection: normal respiratory effort and respiratory effort not decreased Auscultation: rhonchi Cardio Palpation: no palpable S3 and no palpable S4 Heart sounds: no rubs GI Inspection: Yes normal to inspection Palpation (GI): Soft to palpation Percussion: Yes normal to percussion Auscultation: normal bowel sounds General: Yes no CVA tenderness Back/Spine/Pelvis Back: no CVA tenderness Skin General skin exam: no petechiae and no purpura Neuro General: patient oriented x3 and no focal motor deficits Extrem General: No clubbing and No edema Assessment & Plan Assessment & Plan (1) Orthostatic hypotension: Comment: Supine hypertension with orthostatic hypotension. Code(s): I95.1 - Orthostatic hypotension Plan: Based on the current blood pressure readings I would still hold the midodrine. I have advised her to take me midodrine as needed if the systolic blood pressure is less than 110 mm of mercury. In the meantime I will continue losartan 100 mg and metoprolol 205mg in the evening. Discussed all orthostatic precautions. Coding Level of Care Code Est Pt Level 4 (10185) Diagnoses Orthostatic hypotension I95.1 Results Reviewed Nephrology Results: Hgb 13.0 g/dl (12.0-16.0) 06/13/23 WBC 4.4 X10*3/uL (4.8-10.8) L 06/13/23 Plt Count 148 X10*3/uL (160-400) L 06/13/23 Sodium 143 mmol/L (135-145) 12/08/23 Potassium 4.0 mmol/L (3.3-5.1) 12/08/23 Chloride 108 mmol/L (96-108) 12/08/23 Carbon Dioxide 27 mmol/L (22-29) 12/08/23 BUN 17 mg/dL (9-16) H 12/08/23 Creatinine 1.16 mg/dL (0.5-1.4) 12/08/23 Calcium 9.2 mg/dL (8.4-10.2) 12/08/23
== END 2023-12-20 14:43 | disposition home or self-care (01) ==
PROVIDERS: PCP Internal Medicine; Visit Provider Internal Medicine Hypertension Specialist
DX: I95.1 Orthostatic hypotension (principal)
CPT/HCPCS: 99214

== ENCOUNTER → 2023-12-20 14:23 | Outpatient (BNVA) | payer MEDICARE, SELFPAY | PROVIDERS: PCP Internal Medicine; Visit Provider Internal Medicine Hypertension Specialist | DX: I95.1 Orthostatic hypotension (principal) | CPT/HCPCS: 99212 ==

== ENCOUNTER 2024-02-07 09:58 | Outpatient (AMB) | payer MEDICARE, SELFPAY ==
[2024-02-07 10:15] VITALS: BP 122/68; PULSE 88; O2SAT 98; BMI 24.2
--- NOTE | 2024-02-07 10:15 | MHC.OFFVIS ---
Vital Signs 02/07/24 10:15 Height 5 ft 5 in Weight 145 lb 8.081 oz BMI 24.2 BP 122/68 Blood Pressure Location Lt brachial Position Sitting Pulse 88 Pulse Source Monitor Pulse Oximetry (%) 98 Oxygen Delivery Method Room Air Intake Visit Reasons: 6 mth f/up Allergies diltiazem [From CARDIZEM] Allergy (Intermediate, Verified 12/20/23 14:27) RASH ITCHING oxycodone [OXYCODONE] Allergy (Unknown, Verified 12/20/23 14:27) NAUSEA & VOMITING Medication List - Last Reconciled 02/07/24 by Garland Alegria MD levothyroxine 100 mcg PO DAILY losartan 100 mg orally; night metoprolol succinate ER 25 mg PO DAILY HPI Comments Details: Annie returns for follow-up. Originally seen in consultation regarding chest discomfort. Sounded atypical for angina. No other complaints like shortness of breath or in fact any other symptoms. There was concern because of family history of coronary disease/CABG in parents and sister. Patient herself has hypertension as well as orthostatic hypotension. Currently, she takes metoprolol as well as losartan. She was also on midodrine but not anymore. Also goes Nephrology. Since last seen, she states she is feeling fine. Has not had any chest pains. No dizzy spells or orthostatic symptoms either. [facility] Medical History History of palpitations History of orthostatic hypotension Thrombocytopenia Leukopenia History of fracture of wrist HTN (hypertension) Hypothyroid CKD (chronic kidney disease) Blind left eye Surgical History Hx of colonoscopy History of surgery on wrist Family History Mother Heart problem H/O heart bypass surgery Father Heart problem H/O heart bypass surgery Sister Heart problem H/O heart bypass surgery Social History Patient Tobacco Use Status: Former Tobacco user Review of Systems Const Denies weakness ENT Denies dizziness Card Denies chest pain, Denies chest pain with activity, Denies syncope, Denies rapid heart rate, Denies pedal edema, Denies edema, Denies leg edema, Denies lightheadedness, Denies palpitations, Denies dyspnea, Denies dyspnea on exertion and Denies orthopnea Resp Denies cough, Denies dyspnea and Denies dyspnea on exertion GI Denies hematochezia and Denies change in stool character Musc Denies abnormal gait, Denies muscle cramps, Denies muscle weakness, Denies numbness, Denies radiating pain into limb and Denies tingling Neuro Denies abnormal gait, Denies dizziness, Denies syncope, Denies numbness, Denies tingling and Denies weakness Endo Denies palpitations Physical Exam Vital Signs: Last Vital Signs Pulse 88 02/07/24 10:15 BP 122/68 02/07/24 10:15 Pulse Ox 98 02/07/24 10:15 Oxygen Delivery Method Room Air 02/07/24 10:15 BMI result Body Mass Index 24.2 Const General: comfortable and no acute distress Orientation/consciousness: patient oriented x3 HEENT Other: Unremarkable Head: Yes normal to inspection Neck Neck: Yes normal visual inspection Chest Chest palpation & inspection: normal inspection of the chest Resp Auscultation: clear to auscultation bilaterally Cardio Palpation: normal PMI Heart sounds: S1 normal heart sound present, S2 normal heart sound present, no gallops, no murmurs and no rubs GI Palpation (GI): Soft to palpation Back/Spine/Pelvis Other: unremarkable Skin General skin exam: no rashes or lesions noted Neuro General: patient oriented x3 Extrem General: Yes normal to inspection Psych Mental Status: mental status grossly normal Office Procedures EKG Details: EKG with sinus; 88/Min; premature supraventricular ectopy; leftward axis; [place]; [place]. [id number], Complete Assessment & Plan Assessment & Plan (1) HTN (hypertension): Code(s): I10 - Essential (primary) hypertension Category: Medical Qualifiers: Hypertension type: primary hypertension Qualified Code(s): I10 - Essential (primary) hypertension (2) Orthostatic hypotension: Comment: Supine hypertension with orthostatic hypotension. Code(s): I95.1 - Orthostatic hypotension Category: Medical (3) Cardiomyopathy: Code(s): I42.9 - Cardiomyopathy, unspecified Category: Medical Qualifiers: Cardiomyopathy type: unspecified Qualified Code(s): I42.9 - Cardiomyopathy, unspecified Plan Cardiac studies reviewed. Echocardiogram with LVEF of 45-50%. Mild global hypokinesis. In the exercise stress test, she exercised for 7 METS and reached 90% of max predicted heart rate. Blood pressure went up to 190/90 mm Hg. No EKG evidence of ischemia. Perfusion imaging unremarkable. Overall, possible that high blood pressure causes intermittent chest pain. However, no specific concerns recently. With regard to orthostatic hypotension, again no recent concerns and she no longer takes midodrine. In the tilt-table test, impression was orthostatic hypotension. Recommendation was to increase fluid intake. Otherwise, she may remain on the current blood pressure regimen. Total time spent including review of data, counseling, documentation, coordination of care-32 minutes. Coding Level of Care Code Est Pt Level 4 (01504) Diagnoses Primary hypertension I10 Hypertension type: primary hypertension Orthostatic hypotension I95.1 Cardiomyopathy, unspecified type I42.9 Cardiomyopathy type: unspecified CPT Codes EKG - CPT: 83175-[id number], Complete ([id number])
== END 2024-02-07 10:42 | disposition home or self-care (01) ==
PROVIDERS: PCP Internal Medicine; Visit Provider Internal Medicine
DX: I10 Essential (primary) hypertension (principal); I95.1 Orthostatic hypotension; I42.9 Cardiomyopathy, unspecified
CPT/HCPCS: 93010; 99214

== ENCOUNTER → 2024-02-07 09:58 | Outpatient (BNVA) | payer MEDICARE, SELFPAY | PROVIDERS: PCP Internal Medicine; Visit Provider Internal Medicine | DX: I95.1 Orthostatic hypotension (principal); I42.9 Cardiomyopathy, unspecified; I10 Essential (primary) hypertension | CPT/HCPCS: 93005; 99212 ==

== ENCOUNTER 2024-02-09 07:57 | Outpatient (REF) | payer MEDICARE, SELFPAY ==
[2024-02-09 09:51] LABS: Thyroid Stimulating Hormone 0.92 uIU/mL (0.32-4.0)
== END 2024-02-09 07:58 | disposition home or self-care (01) ==
LOC: HO.LAB 07:57
PROVIDERS: PCP Internal Medicine; Visit Provider Internal Medicine
DX: E03.9 Hypothyroidism, unspecified (principal); I12.9 Hypertensive chronic kidney disease with stage 1 through stage 4 chronic kidney disease, or unspecified chronic kidney disease; I95.1 Orthostatic hypotension; Z68.24 Body mass index [BMI] 24.0-24.9, adult
CPT/HCPCS: 36415; 84443

== ENCOUNTER 2024-03-22 07:48 | Emergency (ER) | payer MEDICARE, SELFPAY ==
[2024-03-22 07:52] VITALS: BP 205/95; PULSE 92; RESP 18; TEMP 36; O2SAT 100; BMI 22.4
--- NOTE | 2024-03-22 08:04 | ED_ITS ---
HPI - URI/Sore Throat General Chief Complaint: Upper Respiratory Symptoms Stated Complaint: ? sinus infection Time Seen by Provider: 03/22/24 08:02 Source: patient Mode of arrival: ambulatory Limitations: no limitations History of Present Illness ED Provider: Maryam Vazquez APRN HPI Narrative: 74 yo female with history of hypothyroidism, hypertension presents to the ER with one week of productive cough w/ green sputum, now head congestion/nasal congestion/eye redness and drainage bilaterally since last evening. No fevers, chills, body aches, vomiting, diarrhea, chest pain, shortness of breath. Taking Tylenol cold and sinus at home Related Data Home Medications ?Medication ?Instructions ?Recorded ?Confirmed metoprolol succinate 25 mg 25 mg PO DAILY 02/06/23 02/07/24 tablet,extended release 24 hr losartan 100 mg tablet 100 mg PO .COMPLEX 02/08/23 02/07/24 levothyroxine 100 mcg tablet 100 mcg PO DAILY 12/20/23 02/07/24 Previous Rx's ?Medication ?Instructions ?Recorded amoxicillin 875 mg-potassium 1 tab PO BID #14 tabs 03/22/24 clavulanate 125 mg tablet erythromycin 5 mg/gram (0.5 %) eye 1 appl ophthalmic (eye) DAILY #3.5 03/22/24 ointment grams Allergies Allergy/AdvReac Type Severity Reaction Status Date / Time diltiazem [From CARDIZEM] Allergy Intermediate RASH Verified 03/22/24 07:53 ITCHING oxycodone [OXYCODONE] Allergy Unknown NAUSEA & Verified 03/22/24 07:53 VOMITING Review of Systems Review of Systems: Yes all other systems are reviewed and are negative Constitutional: Constitutional: Reports no additional constitutional complaints, Denies body ache(s), Denies chills, Denies fever(s), Reports headache(s) and Denies weakness Eyes: Eyes: Reports no additional eye complaints, Denies change in vision and Reports eye discharge ENT: Reports system reviewed and no additional complaints, except as documented, Denies dizziness, Reports headache(s), Reports nasal congestion, Denies nasal discharge and Denies neck pain Cardiovascular: Cardiovascular: Reports no additional cardiovascular complaints, Denies chest pain, Denies leg edema and Denies dyspnea Respiratory: Respiratory: Reports no additional respiratory complaints, Reports cough and Denies dyspnea Gastrointestinal: Gastrointestinal: Reports no additional gastrointestinal complaints, Denies abdominal pain, Denies diarrhea, Denies nausea and Denies vomiting Genitourinary: Genitourinary: Reports no additional female genitourinary complaints and Denies urinary incontinence Musculoskeletal: Musculoskeletal: Reports no additional musculoskeletal complaints, Denies back pain, Denies arthralgias, Denies joint swelling, Denies neck pain, Denies numbness and Denies tingling Integumentary/Breasts: Skin/Breast: Reports system reviewed and no additional complaints, except as docu and Denies rash Neurologic: Reports system reviewed and no additional complaints, except as documented, Denies Abnormal speech present, Denies dizziness, Reports headache(s), Denies numbness, Denies tingling and Denies weakness PMFSH Past Medical History Attestation statement: The following information was validated with the patient. Source: old records reviewed and nursing notes reviewed Medical History History of palpitations History of orthostatic hypotension Thrombocytopenia Leukopenia History of fracture of wrist HTN (hypertension) Hypothyroid CKD (chronic kidney disease) Blind left eye Surgical History Hx of colonoscopy History of surgery on wrist Family History Family History Mother Heart problem H/O heart bypass surgery Father Heart problem H/O heart bypass surgery Sister Heart problem H/O heart bypass surgery Social History Social History Patient Tobacco Use Status: Former Tobacco user Advance Directives: No Do you have a plan to hurt others: No Plan Physical Exam Vital Signs: Vital Signs: Last Vital Signs Temp 98.6 F 03/22/24 09:33 Pulse 66 03/22/24 09:33 Resp 18 03/22/24 09:33 BP 200/93 H 03/22/24 09:33 Pulse Ox 100 03/22/24 09:33 O2 Del Method Room Air 03/22/24 09:33 BMI result Body Mass Index 22.4 Const: General: cooperative, healthy appearing, comfortable and no acute distress Orientation/consciousness: patient oriented x3 Limitations: no limitations HEENT: Other: Bilateral nasal turbinate Sinus tenderness to palpation Head: Yes normal to inspection Ears: hearing grossly normal bilaterally and TM's normal bilaterally General nose exam: Normal external nose present Face and sinus: Yes normal facial exam Mouth: Normal oral and palatal mucosa present Throat: Yes posterior oropharynx normal, Yes tonsils normal and Yes uvula midline Eyes: Other: Bilateral conjunctival injection, crusting noted bilaterally General: appearance normal, both eyes and all related structures Pupils: Equal, round and reactive pupils present Neck: Neck: Yes normal visual inspection, Yes full ROM, Yes no lymphadenopathy and Yes no meningeal signs Chest: Chest palpation & inspection: normal inspection of the chest Resp: Effort & Inspection: normal respiratory effort Auscultation: clear to auscultation bilaterally Cardio: Rate: regular rate Rhythm: regular rhythm Peripheral pulses: P eripheral pulses 2+ throughout GI: Inspection: Yes normal to inspection Palpation (GI): Soft to palpation and nontender Auscultation: normal bowel sounds Back/Spine/Pelvis: Thoracic/Lumbar Spine: thoracic and lumbar spine normal to inspection Skin: General skin exam: no rashes or lesions noted Neuro: General: patient oriented x3, no meningeal signs, no focal motor deficits and normal sensation to monofilament Cranial nerves: Yes Equal, round and reactive pupils present Cognition (Neuro): normal cognition Speech: No Abnormal speech present Gait exam (Neuro): Normal gait present Motor exam (neuro): 5/5 motor strength present throughout Extrem: General: Yes normal to inspection Course Course Course Narrative: Viral screen is negative. Patient will be treated for sinusitis with conjunctivitis. Asymptomatic hypertension who can follow up with primary care doctor. Reviewed worrisome signs and symptoms of when to return to the emergency room. Comfortable plan for discharge home. Medical Decision Making Medical Decision Making [facility] Narrative: 74 yo female with history of hypothyroidism, hypertension presents to the ER with one week of productive cough w/ green sputum, now head congestion/nasal congestion/eye redness and drainage bilaterally since last evening. No fevers, chills, body aches, vomiting, diarrhea, chest pain, shortness of breath. Taking Tylenol cold and sinus at home Bilateral nasal turbinate erythema with sinus tenderness to palpation and bilateral conjunctival injection with crusting noted. Vision is reportedly normal. PERRLA. Will send viral testing Exam consistent with conjunctivitis with sinusitis. Will need oral antibiotic for home. Of note, asymptomatic hypertension. Patient reports she takes her blood pressure medication and evening time. She does have chronic hypertension and is not alarmed by her blood pressure this morning. She also has been taking Tylenol cold and sinus at home which may concerning a decongestant which may also elevate her blood pressures I recommended she discontinue this. She should follow up with her primary care doctor for blood pressure recheck outpatient Differential Diagnosis Differential Diagnoses: The differential diagnosis associated with the presentation includes Sinusitis, conjunctivitis Low suspicion for orbital cellulitis, periorbital cellulitis Admission/Observation Consideration of admission/observation: Escalation of care including admission/observation considered Lab Data MDM Lab Attestation statement: I reviewed the patient's lab results. Labs: Lab Results 03/22/24 Range/Units 08:20 Influenza Type A (PCR) NEGATIVE (Negative) Influenza Type B (PCR) NEGATIVE (Negative) RSV RNA Qual (PCR) NEGATIVE (Negative) SARS-CoV-2 RNA (RT-PCR) NEGATIVE (Negative) Prescription Management I considered prescription management with: Antibiotic Discharge Plan Discharge Clinical Impression: Conjunctivitis, Sinusitis Patient Disposition: Home, Self-Care Instructions: Sinusitis (ED), Conjunctivitis (ED) Additional Instructions: Your blood pressure was elevated on today's visit. You should follow-up with primary care doctor for recheck of your blood pressure and further management. Please avoid [id number] decongestants which are in these cold and sinus medications which may further elevate your blood pressure. Your testing for flu, COVID, RSV are negative It may take Tylenol for pain as needed The antibiotic should be taken with food. Please also take a probiotic. Prescriptions: New amoxicillin-pot clavulanate 875-125 mg tablet 1 tab PO BID Qty: 14 0RF erythromycin 5 mg/gram (0.5 %) ointment 1 appl ophthalmic (eye) DAILY Qty: 3.5 0RF No Action metoprolol succinate 25 mg tablet extended release 24 hr 25 mg PO DAILY losartan 100 mg tablet 100 mg PO .COMPLEX Rx Instructions: 100 mg orally; night levothyroxine 100 mcg tablet 100 mcg PO DAILY Referrals: Cheyenne Ladd MD [Primary Care Provider] - 1 week Interventions: ED Discharge Assessment Last Done: 03/22/24 09:33 Discharge Date/Time: 03/22/24 09:35 Print Language: Argentine
[2024-03-22 08:28] VITALS: BP 151/66; PULSE 58; RESP 16; TEMP 37; O2SAT 97
[2024-03-22 09:03] LABS: Influenza A PCR NEGATIVE (Negative); Influenza B PCR NEGATIVE (Negative); Resp Syncy Virus RNA Qual PCR NEGATIVE (Negative); SARS COV2 PCR INHOUSE NEGATIVE (Negative)
[2024-03-22 09:33] VITALS: BP 200/93; PULSE 66; RESP 18; TEMP 37; O2SAT 100
== END 2024-03-22 09:35 | disposition home or self-care (01) ==
PROVIDERS: Emergency Provider Emergency Medicine; PCP Internal Medicine
DX: J32.9 Chronic sinusitis, unspecified (principal); H10.9 Unspecified conjunctivitis; Z03.818 Encounter for observation for suspected exposure to other biological agents ruled out; R05.9 Cough, unspecified
CPT/HCPCS: 0241U; 99283

== ENCOUNTER 2024-06-14 07:16 | Outpatient (REF) | payer MEDICARE, SELFPAY ==
[2024-06-14 07:38] LABS: MANUAL DIFF FLAG NO
[2024-06-14 07:48] LABS: Basophils Absolute Auto 0.1 X10*3/uL (0.0-0.2); Basophils Percent Auto 1.1 % (0-2); Eosinophils Absolute Auto 0.2 X10*3/uL (0.0-0.4); Eosinophils Percent Auto 3.7 % (0-4); Hematocrit 39.1 % (37.0-47.0); Hemoglobin 12.6 g/dl (12.0-16.0); Imm Gran Abs Auto 0.03 X10*3/uL (0.00-0.03); Imm Gran Pct Auto 0.7 % (0.0-0.4); Lymphocytes Absolute Auto 1.4 X10*3/uL (1.2-4.9); Lymphocytes Percent Auto 32.4 % (20-40); Mean Corpuscular HGB Conc 32.2 g/dl (31.0-35.0); Mean Corpuscular Hemoglobin 29.9 pg (27.0-33.0); Mean Corpuscular Volume 92.9 fL (80.0-98.0); Mean Platelet Volume 12.8 fL (9.4-12.3); Monocytes Absolute Auto 0.4 X10*3/uL (0.1-1.2); Monocytes Percent Auto 8.2 % (2-11); Neutrophils Absolute Auto 2.4 x10*3/uL (2.0-8.3); Neutrophils Percent Auto 53.9 % (45-73); Platelet Count 147 X10*3/uL (160-400); Red Blood Count 4.21 X10*6/uL (4.20-5.50); Red Cell Distribution Width 13.7 % (11.0-16.0); White Blood Count 4.4 X10*3/uL (4.8-10.8)
[2024-06-14 08:23] LABS: Alanine Aminotransferase 14 U/L (0-31); Albumin Level 3.9 g/dL (3.5-5.0); Alkaline Phosphatase 53 U/L (39-117); Anion Gap 11 (12-20); Aspartate Amino Transferase 16 U/L (5-31); Bilirubin Total 0.8 mg/dL (0.0-1.0); Blood Urea Nitrogen 19 mg/dL (9-16); Carbon Dioxide 28 mmol/L (22-29); Chloride 107 mmol/L (96-108); Cholesterol 180 mg/dL (<200); Estimated Glomerular Filt Rate 45; Glucose Fasting 102 mg/dL (60-99); HDL Cholesterol 80 mg/dL (>40); LDL Cholesterol Calculated 87 mg/dL (<100); Potassium 3.8 mmol/L (3.3-5.1); Sodium 142 mmol/L (135-145); Total Protein 6.9 g/dL (6.5-8.0); Triglycerides 67 mg/dL (<150)
[2024-06-14 08:38] LABS: Thyroid Stimulating Hormone 2.39 uIU/mL (0.32-4.0)
== END 2024-06-14 07:17 | disposition home or self-care (01) ==
LOC: HO.LAB 07:16
PROVIDERS: PCP Internal Medicine; Visit Provider Internal Medicine
DX: E03.8 Other specified hypothyroidism (principal); I12.9 Hypertensive chronic kidney disease with stage 1 through stage 4 chronic kidney disease, or unspecified chronic kidney disease
CPT/HCPCS: 36415; 80053; 80061; 84443; 85025

== ENCOUNTER 2024-06-16 13:15 | Outpatient (AMB) | payer MEDICARE, SELFPAY ==
--- NOTE | 2024-06-16 13:19 | HO.NEPHOV_ITS ---
Vital Signs 06/16/24 13:20 Height 5 ft 7 in Weight 144 lb BMI 22.6 BP 102/62 Blood Pressure Location Rt brachial Position Sitting Pulse 86 Pulse Source Pulse Oximeter Pulse Oximetry (%) 97 Oxygen Delivery Method Room Air Intake Visit Reasons: 6 Months/ Conf Drivability Technician Required: No Accompanied by: Self / Same As Patient Allergies diltiazem [From CARDIZEM] Allergy (Intermediate, Verified 06/16/24 13:22) RASH ITCHING oxycodone [OXYCODONE] Allergy (Unknown, Verified 06/16/24 13:22) NAUSEA & VOMITING HPI Comments Details: 73-year-old woman with a history of supine hypertension and orthostatic hypotension. Renal function stable. Occasionally she has lightheadedness when she stands up, but reports this has been much better recently. Currently she is on losartan 100 mg and metoprolol 25 mg q.p.m.. no longer taking midodrine (previously on for intermittently low BP) She is being followed by Cardiology and his tilt-table test was done, this was consistent with orthostatic hypotension. reports dizziness is well-controlled at this time, only if she stands up quickly otherwise doing ok she is drinking lots of fluids throughout the day she is not taking any nsaids or other OTC medications she does not take her BP regularly at home, reports over last few months her dizziness has been well-controlled no OTC nsaids no new dyspnea, LE swelling (chronic left lower extremity swelling for many years, reports remains unchanged) reports chronic urinary urgency during the day, no recent changes PFSH Medical History History of palpitations History of orthostatic hypotension Thrombocytopenia Leukopenia History of fracture of wrist HTN (hypertension) Hypothyroid CKD (chronic kidney disease) Blind left eye Surgical History Hx of colonoscopy History of surgery on wrist Family History Mother Heart problem H/O heart bypass surgery Father Heart problem H/O heart bypass surgery Sister Heart problem H/O heart bypass surgery Social History Patient Tobacco Use Status: Former Tobacco user Review of Systems Const Denies body aches, Denies fatigue, Denies headache(s), Denies malaise and Denies weight gain ENT Denies headache(s) Card Denies chest pain, Denies dyspnea, Denies dyspnea on exertion and Denies or thopnea Resp Denies dyspnea and Denies dyspnea on exertion GI Denies abdominal pain and Denies constipation Denies hematuria, Denies difficulty voiding, Denies dysuria and Reports urinary urgency (reports chronic, unchanged ) Musc Denies myalgias Skin/Breast Denies rash Neuro Denies headache(s) Endo Denies fatigue Physical Exam Vital Signs: Last Vital Signs Pulse 86 06/16/24 13:20 BP 102/62 06/16/24 13:20 Pulse Ox 97 06/16/24 13:20 Oxygen Delivery Method Room Air 06/16/24 13:20 BMI result Body Mass Index 22.6 Const General: comfortable and no acute distress Orientation/consciousness: patient oriented x3 Neck Neck: Yes supple Resp Auscultation: clear to auscultation bilaterally Cardio Jugular venous distension: no JVD Rate: regular rate GI Palpation (GI): Soft to palpation Auscultation: normal bowel sounds General: Yes no CVA tenderness Back/Spine/Pelvis Back: no CVA tenderness Skin General skin exam: no rashes or lesions noted Neuro General: patient oriented x3 and moves all extremities Extrem General: Yes no pedal edema (chronic left ankle swelling, reports chronic for years/unchanged ) Results Reviewed Nephrology Results: Hgb 12.6 g/dl (12.0-16.0) 06/14/24 WBC 4.4 X10*3/uL (4.8-10.8) L 06/14/24 Plt Count 147 X10*3/uL (160-400) L 06/14/24 Sodium 142 mmol/L (135-145) 06/14/24 Potassium 3.8 mmol/L (3.3-5.1) 06/14/24 Chloride 107 mmol/L (96-108) 06/14/24 Carbon Dioxide 28 mmol/L (22-29) 06/14/24 BUN 19 mg/dL (9-16) H 06/14/24 Creatinine 1.17 mg/dL (0.5-1.4) 06/14/24 Calcium 9.0 mg/dL (8.4-10.2) 06/14/24 Assessment & Plan Assessment & Plan (1) Orthostatic hypotension: Comment: Supine hypertension with orthostatic hypotension. Code(s): I95.1 - Orthostatic hypotension Category: Medical Plan: Stable advised continue current medication regimen to control blood pressure (metoprolol 25mg nightly, losartan 100mg daily in the nightly) continue to push fluids to help reduce orthostasis she will continue to check blood pressure, particularly if symptomatic Discussed all orthostatic precautions. Coding Level of Care Code Est Pt Level 3 (81181) Diagnoses Orthostatic hypotension I95.1
[2024-06-16 13:20] VITALS: BP 102/62; PULSE 86; O2SAT 97; BMI 22.6
== END 2024-06-16 13:43 | disposition home or self-care (01) ==
PROVIDERS: PCP Internal Medicine; Visit Provider Internal Medicine Hypertension Specialist
DX: I95.1 Orthostatic hypotension (principal)
CPT/HCPCS: 99213

== ENCOUNTER → 2024-06-16 13:15 | Outpatient (BNVA) | payer MEDICARE, SELFPAY | PROVIDERS: PCP Internal Medicine; Visit Provider Internal Medicine Hypertension Specialist | DX: I10 Essential (primary) hypertension (principal); I95.1 Orthostatic hypotension | CPT/HCPCS: 99212 ==

== ENCOUNTER 2024-12-06 08:46 | Outpatient (REF) | payer MEDICARE, SELFPAY ==
--- OUTSIDE RECORDS SUMMARY | 2024-12-06 08:50 | XMS_ITS ---
Author Organization [facility] [place] Address [address] [facility] [place] [address] Care Team Providers Care Cleaner Housekeeping Name Role Phone Cheyenne Ladd Primary Care Provider Unavailab sadie MuellerNela Unavailable [phone] Allergies Allergen (clinical drug ingredient) Drug/Non Drug Allergy documented on EMR Reaction Allergy Type Onset Date Status diltiazem Cardizem Unknown Drug Allergy Active acetaminophen / oxycodone Percocet Unknown Drug Allergy Active oxycodone Oxycodone Unknown Drug Allergy Active REASON FOR VISIT Ingrown Nail Medications Medication SIG (Take, Route, Frequency, Duration) Notes Start Date End Date Status Levothyroxine Sodium Not-Taking Losartan Potassium N ot-Taking Losartan Potassium 100 MG Oral for 90 Days Active Metoprolol Succinate Not-Taking Metoprolol Succinate ER 25 MG Oral for 90 Days Active Levothyroxine Sodium 100 MCG Oral for 90 Days Active Social History Tobacco Use: Social History Observation Description Date Details (start date - stop date) Never Smoker NA - NA Alcohol Screen Question Answer Notes Did you have a drink containing alcohol in the p ast year? Yes Points 0 Interpretation Negative Tobacco use other than smoking: Question Answer Notes Are you an other tobacco user? No Tobacco Control (Standard) Question Answer Notes Tobacco use: Nonsmoker Additional Findings: Tobacco non-user Current no nsmoker Vital Signs Height 5ft 7in in 11/11/2024 Weight 140 lbs 11/11/2024 BMI 21.92 kg/m2 11/11/2024 Blood pressure systolic 120 mm Hg 11/11/19 25 Blood pressure diastolic 80 mm Hg 025 Encounters Encounter Location Date Provider Diagnosis [facility] [place] [address] 11/11/2024 Nela Mueller Ingrown nail L60.0 Assessments Encounter Date Diagnosis (ICD Code) Assessment Notes Treatment Notes Treatment Clinical Notes Section Notes 11/11/2024 Ingrown nail (ICD-10 - L60.0) Plan Of Treatment Next Appt Details Follow Up: prn, Reason: Provider Name:Nela Mueller , 01/05/2025 02:00:00 PM, [address] [place], [address], Provider Name:Nela Mueller , 01/19/2025 09:15:00 AM, [address] [place] [address], [phone], Progress Notes * Annie TEJADADOB: [birth year] (74 yo F)Acc No.[id number]:11/11/2024 Progress Note Patient:?Annie TEJADA Provider:?Nela MuellerUZIEL :1950???Age:74 Y???Sex:Female D ate:11/11/2024 Address: [place], [place] [facility] Pcp:Cheyenne Ladd Subjective: * Chief Complaints: * ???Ingrown Nail * ROS:?General/Constitutional:?Nausea?denies.?Vomiting?denies.?Hunger Thirst?denies.?Loss appetite?denies.?Chills?denies.?Fatigue?denies.?Fever?denies.?Night Sweats?denies.?Unexplained weight loss?denies.?Unexplained weight gain?denies.?HEENTM:?Dentures?denies.?Dizziness?denies.?Glasses/contacts?admits.?Retinopathy?de nies.?Blurred/double vision?denies.?TMJ?denies.?Discharge/drainage?denies.?Implants?denies.?Sore throat?denies.?Dental implants?denies.?Hard of hearing ?denies.?Difficulty chewing/swallowing/speaking?denies.?Nose bleeds?denies.?Sore mouth?denies.?Respiratory:?On Oxygen?denies.?Pneumonia/pleurisy?denies.?Bronchitis?denies.?Emphysema?denies.?C oughing?denies.?Cough blood?denies.?Shortness of breath?denies.?Wheezing?denies.?Cardiovascular:?Pacemaker?denies.?MVP?denies.?WPW?denies.?CHF?denies.?Heart attack?denies.?Septal defect?denies.?Rapid beat?denies.?Chest pain ?denies.?Atrial Fib.?denies.?Murmur/Palpitations?denies.?Gastrointestinal:?Hemorrhoids?denies.?Stomach/Abdominal pain?denies.?Dark blood stool?denies.?Irritable bowel ?denies.?Constipation?denies.?Diarrhea?denies.?Hematology:?Swelling?admits.?Clots?denies.?Varicose Veins?denies.?Bruising?denies.?Bleeding problem?denies.?Genitourinary:?Blood urine?denies.?Frequent/Painfu/urination/bladder control?denies.?Kidney stones?denies.?Infection (UTI)?denies.?Nephropathy?denies.?sex trans dis (STD)?denies.?Prostate?denies.?Musculoskeletal:?Hammertoes?denies.?Bunions?denies.?Back Pain?denies.?Muscle Cramps/ Resting?denies.?Muscle cramps / walking?denies.?Generalized aches and pains?denies.?Weakness?denies.?Integ.:?Lea?denies.?Scars?denies.?Corns/calluses?admits.?Ingrown nails?admits.?Painful nails?admits.?Open Sores?denies.?Rashes?denies.?Neurologic:?Difficulty sleeping?denies.?Brain disorder?denies.?Numbness?denies.?Balance trouble?denies.?Confusion?denies.?Fainting/blackouts?denies.?Tingling?denies.?Tr emors?denies.? * Medical History:? * Surgical History:?broken wri sts 04/2016 * Hospitalization/Major Diagno stic Procedure:?No Hospitalization History. * Family History:?Mother: dece ased, diagnosed with Unspecified essential hypertension, Unspecified heart disease, Diabetic - NIDDM.?Father: , diagnosed with Unspecified essential hypertension, Unspecified heart disease.? * Social History:?Tobacco Use:?Tobacco use other than smoking?Are you an other tobacco user??No ?Tobacco Control (Standard)?Tobacco use:?Nonsmoker ?Additional Findings: Tobacco non-user?Current nonsmoker ???Drugs/Alcohol:?Drugs?Have you used drugs other than those for medical reasons in the past 12 months??No ?Alcohol Screen?Did you have a drink containing alcohol in the past year??Yes ?Points?0 ?Interpretation?Negative ???Miscellaneous:?Caffeine: yes. ?Children: no. ?Exercise: no. ?Marital status: single. * Medications:?TakingLevothyro xine Sodium 100 MCG Tablet Oral Losartan Potassium 100 MG Tablet Oral Metoprolol Succinate ER 25 MG Tablet Extended Release 24 Hour Oral Taking Levothyroxine Sodium 100 MCG Tablet Oral Taking Losartan Potassium 100 MG Tablet Oral Taking Metoprolol Succinate ER 25 MG Tablet Extended Release 24 Hour Oral Not-Taking/PRNMetoprolol Succinate Losartan Potassium Levothyroxine Sodium Medication List reviewed and reconciled with the patientNot-Taking/PRN Metoprolol Succinate Not-Taking/PRN Losartan Potassium Not-Taking/PRN Levothyroxine Sodium Medication List reviewed and reconciled with the patient * Allergies:?PercocetOxycodone Cardizemyes[Allergies Verified] Objective: * Vitals:?Ht: 5ft 7in, Wt:140, BMI:21.92, Shoe size: 6.5, BP:120/80mm Hg, Ht-cm: 170.18 cm, Wt-k.5 kg. * Examination: ???Ingrown Nail: ?INSPECTION:?Reveals nail incurvation, pain on palpation, groove hypertrophy, groove ischemia, Medial nail border, T5.? Assessment: * Assessment: 1.?Ingrown nail - L60.0 (Britney brand)??? Plan: * Treatment: * Procedure Codes:? * Preventive Medicine:? ??Counseling:?Discussion:?-13: Office or other outpatient visit for the evaluation and management of an established patient, which required a medically appropriate history and/or examination and LOW level of DECISION MAKING for: 1 STABLE ACUTE UNCOMPLICATED PROBLEM, 2 OR MORE MINOR PROBLEMS, OR 1 STABLE CHRONIC PROBLEM, THAT POSE(S) A LOW RISK FOR MORBIDITY/MORTALITY. The visit on the day of the encounter encompassed interpreting the data and educating the patient as to the nature of their condition, treatment options available according to their individual PMH, meds, allergies, and overall health/living conditions, as well as any potential risks or complications that may occur from a failure to adhere to, and participate in, the recommended course of therapy. The discussion included a complete verbal, and/or written explanation of the examination results, any x-rays taken, the proposed diagnosis, and outline of the treatment plan. A schedule for future care needs was also explained. The patient verbalized an understanding of the instructions at this time and agreed to be an active participant in their treatment. If the patient should think of any questions or concerns after the visit, I have encouraged the patient to call the office.?Abscess/Paraonychia/Ingrown Nails:?We discussed the possible etiologies (genetic, improper nail care, shoe gear, nail trauma) which may lead to ingrown nails and/or paronychial infections. We discussed and reviewed palliative/nonsurgical/deferring definitive treatment (vs) undergoing the treatment procedures of nail avulsion(s) or PNA, which may prevent recurrence and give more lasting results. The possible risks/complications such as worsened condition/delayed healing/nonhealing/failure/recurrence/infection, the potential benefits/advantages of decreased pain/deformity, as well as alterative treatment options including applying nail softening agents/nail groove packing were discussed. No guarantees were given regarding any outcome for any procedure. The patient was educated in the length of time for the affected nail to regrow once completely healed from a nail avulsion procedure. Once the condition has completely healed, the patient was consulted on proper nail care. Patient questions such as details of each procedure, varying time to heal, activity post procedure, and shoe gear were discussed and the answers were verbally confirmed fully understood, Pt will consider PNA if nail cont to regrow ingrown, slant back performed with good relief of pain, pt to monitor for any signs of infection, pt should soak in warm water and epsom salts and apply antibotic ointment, call with any issues.? ??Screening/Special Tests:?Fall Risk?Screening:?No falls in the past year ?FALLS: Screening for Future Fall Risk?Have you had any falls with injury in the past year??No * Follow Up:?prn * Images: * Sign off status: Completed true * Provider:?Nela Mueller DPM Date:?2024 Generated for Felicia denny/Robi/Millie on:?12/06/2024 08:50 AM EDT History and Physical Notes * Examination Category Sub-Category Detail Notes Category Not es Ingrown Nail INSPECTION: Reveals nail inc urvation, pain on palpation, groove hypertrophy, groove ischemia, Medial nail border, T5
--- OUTSIDE RECORDS SUMMARY | 2024-12-06 08:50 | XMS_ITS | Patient Health Record ---
Author Organization [facility] Address [address] [place] [address] Care Team Providers Care Textile Stylist Name Role Phone Germánbalaji Cheyenne Primary Care Provider UnavailMike Meeks Jr Unavailable Allergies Allergen (clinical drug ingredient) Drug/Non Drug Allergy documented on EMR Reaction Allergy Type Onset Date Status oxycodone Oxycodone Unknown Drug Allergy Active acetaminophen / oxycodone Percocet Unknown Drug Allergy Active diltiazem Cardizem Unknown Drug Allergy Active Reason For Referral No Information Medications Medication SIG (Take, Route, Frequency, Duration) Notes Start Date End Date Status OsmoPrep 1.102-0.398 GM 32 tablets Orall y over two days as directed for 2 day(s) 12/27/2022 Active Levothyroxine Sodium 112 MCG 1 capsule O rally Once a day Active Losartan Potassium 50 MG TAKE 1 TABLET B Y MOUTH EVERY DAY Oral for 90 Active Midodrine HCl 2.5 MG TAKE 1 TABLET BY MO [facility] TWICE A DAY Oral for 90 Active MiraLax (colon prep) 17 GM/SCOOP mixed with Gatorade or Crystal Light Orally begin at 5:00 p.m. the day before the procedure for 1 day 02/09/2022 Active Immunizations Vaccine Route Administration Date Status Comme nts Flu vaccine no Preserv 3 and > Unknown 09/24/2014 Admin istered Influenza Unknown 05/25/2021 Administered Problems Problem Type SNOMED Code ICD Code Onset Dates Problem Status W/U Status Risk Notes Problem 692040348 Encounter for screening for malignant neoplasm of colon (Z12.11) Active confirmed Problem 702677150 Encounter for long-term (current) use of other high-risk medications (Z79.899) Active confirmed Problem 339540940 Abnormal findings in stool (R19.5) Active confirmed Plan Of Treatment Future Test Test Name Order Date COLONOSCOPY 06/30/2015 COLONOSCOPY 02/09/2022 Insurance Providers Payer Name Payer Address Payer Phone Subscriber Number Group Number Insured Name Patient Relationship to Insured Coverage Start Date Coverage End Date MEDICARE OF [place] [address] [place] [id number] [id number] ANA M TEJADA Self - patient is the insured [employer] ATTN CLAIMS [address] [place] [address] [id number] ANA M TEJADA Self - patient is the insured Medical (General) History Medical History History ICD Code 10/11/2003 colonoscopy, normal Anemia, with history of low white blood cells and platelets as well hypothroid hypertension hx of bilateral broken wrist 2016 Chronic kidney disease Left eye blindness Surgical History Surgery Date(Month/Year) broken wrist 2015
--- OUTSIDE RECORDS SUMMARY | 2024-12-06 08:50 | XMS_ITS ---
Author Organization [facility] Address [address] [place] [address] Care Team Providers Care Small Boat Engineer Name Role Phone Cheyenne Ladd Primary Care Provider Unavailab sadie Nela Mueller Unavailable [phone] William Morales Unavailable [phone] REASON FOR VISIT Seen Sooner Encounters Encounter Location Date Provider Diagnosis [address] [address] 06/27/2024 William Morales Plan Of Treatment Next Appt Details Provider Name:Nela Mueller , 01/05/2025 02:00:00 PM, [address] [place] [address], [phone], Provider Name:Nela Mueller , 01/19/2025 09:15:00 AM, [address] [place] [address], [phone], Progress Notes * Annie TEJADADOB: [birth year] (74 yo F)Acc No.[id number]:06/27/2024 Progress Note Patient:?Annie TEJADA Provider:?William Morales DPM :1950???Age:74 Y???Sex:Female D ate:06/27/2024 Address:[address] [place] [address] [place] Pcp:Cheyenne Ladd Subjective: * Chief Complaints: * ???1. Seen Sooner. * Medical History:? Objective: * Vitals:? Assessment: Plan: * Treatment: * Images: * The named appointment provid er may or may not be the originator of this progress note, and it is not deemed complete until electronically signed by the appointment provider. Sign off status: Pending * Provider:?William Morales DPM Date:?2023 Generated for Felicia denny/Robi/Millie on:?12/06/2024 08:50 AM EDT
--- OUTSIDE RECORDS SUMMARY | 2024-12-06 08:50 | XMS_ITS | Clinical Summary ---
Author Organization [facility] Address [address] [place] [phone] Phone Care Team Providers Care Embroidery Patternmaker Name Role Phone Cheyenne Ldad MD Primary Care Provider [phone] Social History Tobacco Use Types Packs/Day Years Used Date Smoking Tobacco: Never Assessed Comments No Sex and Gender Information Value Date Recorded Sex Assigned at Not on file Legal Sex Female 12:24 AM EST Gender Identity Not on file Sexual Orientation Not on file Obstetrics History Para Term AB IAB SAB Ectopic Multiple Livin g Live Births 0 Last Filed Vital Signs Vital Sign Reading Time Taken Comments Blood Pressure - - Pulse - - Temperature - - Respiratory Rate - - Oxygen Saturation - - Inhaled Oxygen Concentration - - Weight 63.5 kg (140 lb) 09/06/2024 10:13 AM EST Height 170.2 cm (5' 7 ) 09/06/2024 10:13 AM EST Body Mass Index 21.93 09/06/2024 10:13 AM EST Plan of Treatment Health Maintenance Due Date Last Done Comments Depression Screening 08/27/2022 Falls Risk Assessment 08/27/2022 Hepatitis C Screening 08/27/2022 Medicare Annual Wellness Visit 08/27/2022 Osteoporosis Screening (Bone Density Screening) 08/27/2022 Social Influencers of Health Screening 08/27/2022 Colorectal Cancer Screening: FIT-DNA (Cologuard) 10/13/2024 10/13/2021, 10/13/2021, 06/05/2018 Breast Cancer Screening 09/06/2026 09/06/20 24, 08/27/2023, 08/21/2022, Additional history exists DTaP,Tdap,and Td Vaccines (2 - Td or Tdap) 07/15/2030 07/15/2020 Zoster Vaccines Completed 03/25/2019, 01/16/2019 Pneumococcal Vaccine: 50+ Years Completed 06/03/2020, 07/05/2016 RSV Immunization Patients 60+ Years Old Completed 06/25/2023 COVID-19 Vaccine Completed 07/16/2024, 08/2023, 06/09/2022, Additional history exists Influenza Vaccine Completed 07/16/2024, , 09/20/2021, Additional history exists HIB Vaccines Aged Out No longer eligi ble based on patient's age to complete this topic HPV Vaccines Aged Out No longer eligi ble based on patient's age to complete this topic Hepatitis A Vaccines Aged Out No long er eligible based on patient's age to complete this topic Hepatitis B Vaccines Aged Out No long er eligible based on patient's age to complete this topic IPV Vaccines Aged Out No longer eligi ble based on patient's age to complete this topic MMR Vaccines Aged Out No longer eligi ble based on patient's age to complete this topic Meningococcal ACWY Vaccine Aged Out N o longer eligible based on patient's age to complete this topic Meningococcal B Vacine Aged Out No lo nger eligible based on patient's age to complete this topic RSV Immunization Patients Under 20 months Aged Out No longer eligible based on patient's age to complete this topic Varicella Vaccines Aged Out No longer eligible based on patient's age to complete this topic Procedures Procedure Name Priority Date/Time Associated Diagnosis Comments MG MAMMO DIGITAL SCREENING W SUNITHA BILAT Routine 09/06/2024 10:14 AM EST Encounter for screening mammogram for breast cancer from Last 3 Months or Most Recently Relevant to Health Maintenance Results * MG Mammo Digital Screening w Sunitha bilat (09/06/2024 10:14 AM EST) Anatomical Region Laterality Modality Breast Bilateral Mammography 09/09/2024 12:2 8 PM EST Impressions 09/09/2024 12:34 PM EST Stable mammographic appearance of the breasts. ??No evidence of malignancy is seen. A negative mammogram in the presence of a clinically suspicious palpable abnormality does not preclude the possibility of malignancy or alter the indications for biopsy. BI-RADS: ??Category 1: Negative RECOMMENDATION(S): 1: Routine screening mammogram BILATERAL in 1 year. -------- FINAL REPORT -------- Dictated By: TITI CONWAY Dictated Date: 09/09/2024 12:28 ET Assigned Physician: TITI CONWAY Reviewed and Electronically Signed By: TITI CONWAY Signed Date: 09/09/2024 12:34 ET Workstation ID: [id number] Transcribed By: Self Edit Transcribed Date: 09/09/2024 12:28 ET Narrative 09/09/2024 12:34 PM EST EXAM: MAMMO DIGITAL SCREENING W SUNITHA BILAT EXAM DATE AND TIME: 09/06/2024 10:12 AM HISTORY: ??Screening mammogram from breast cancer COMPARISON: ??08/25/2023 through 08/16/2020 TECHNIQUE: Bilateral digital breast tomosynthesis was performed in the CC and MLO projections. Computer aided detection with [employer] AI 3D 3.1 was employed. TISSUE DENSITY: b. There are scattered areas of fibroglandular density. FINDINGS: No suspicious masses, grouped microcalcifications, or areas of architectural distortion are seen. The skin and vascularity are unremarkable. Procedure Note Titi Conway MD - 09/09/2024 EXAM: MAMMO DIGITAL SCREENING W SUNITHA BILAT EXAM DATE AND TIME: 09/06/2024 10:12 AM HISTORY: Screening mammogram from breast cancer COMPARISON: 08/25/2023 through 08/16/2020 TECHNIQUE: Bilateral digital breast tomosynthesis was performed in the CCand MLO projections. Computer aided detection with [employer] [address] AI 3D 3.1was employed. TISSUE DENSITY: b. There are scattered areas of fibroglandular density. FINDINGS: No suspicious masses, grouped microcalcifications, or areas ofarchitectural distortion are seen. The skin and vascularity areunremarkable. IMPRESSION: Stable mammographic appearance of the breasts. No evidence of malignancyis seen. A negative mammogram in the presence of a clinically suspicious palpableabnormality does not preclude the possibility of malignancy or alter theindications for biopsy. BI-RADS: Category 1: Negative RECOMMENDATION(S): 1: Routine screening mammogram BILATERAL in 1 year. -------- FINAL REPORT -------- Dictated By: TITI CONWAY Dictated Date: 09/09/2024 12:28 ET Assigned Physician: TITI CONWAY Reviewed and Electronically Signed By: TITI CONWAY Signed Date: 09/09/2024 12:34 ET Workstation ID: [id number] Transcribed By: Self Edit Transcribed Date: 09/09/2024 12:28 ET us Self Referral Sppl IMG BI PROCEDURES Final Resul t from Last 3 Months or Most Recently Relevant to Health Maintenance Insurance MEDICARE Care Teams Embroidery Patternmaker Relationship Specialty Start Date End Date Cheyenne Ladd MD [address] [facility] [address] PCP - General Internal Medicine 09/21/15
--- OUTSIDE RECORDS SUMMARY | 2024-12-06 08:50 | XMS_ITS | Patient Health Record ---
Author Organization [facility] Address [address] [facility] [place], [place] [address] Care Team Providers Care Rail Car Driver Name Role Phone Cheyenne Ladd Primary Care Provider Unavailab Mynor Leónmie Unavailable [phone] William Morales Unavailable [phone] Allergies Allergen (clinical drug ingredient) Drug/Non Drug Allergy documented on EMR Reaction Allergy Type Onset Date Status diltiazem Cardizem Unknown Drug Allergy Active acetaminophen / oxycodone Percocet Unknown Drug Allergy Active oxycodone Oxycodone Unknown Drug Allergy Active Reason For Referral No Information Medications Medication SIG (Take, Route, Frequency, Duration) Notes Start Date End Date Status Levothyroxine Sodium Not-Taking Losartan Potassium N ot-Taking Losartan Potassium 100 MG Oral for 90 Days Active Levothyroxine Sodium 100 MCG Oral for 90 Days Active Metoprolol Succinate Not-Taking Metoprolol Succinate ER 25 MG Oral for 90 Days Active Social History [...] Additional Findings: Tobacco non-user Current no nsmoker Problems Problem Type SNOMED Code ICD Code Onset Dates Problem Status W/U Status Risk Notes Problem Atherosclerosis of [place] arteries of the extremities ([id number]) Atherosclerosis of [place] artery of both lower extremities, with unspecified presence of clinical manifestation (I70.203) Active confirmed Q7(A), Q8(2B), Q9(1B,2 C) Vital Signs Blood pressure diastolic 80 mm Hg 11/11/2024 Height 5ft 7in in 11/11/2024 Blood pressure systolic 120 mm Hg 11/11/2024 Weight 140 lbs 11/11/2024 BMI 21.92 kg/m2 11/11/2024 Procedures Procedure Date Ordered Date Performed Result Body Sit e 02438-Cetsksfx Plate 01/25/2024 N/A 81280- Debride <25 sq cm 02/11/2024 N/A 75723-Ymknwhyy Plate 06/24/2024 N/A Encounters Encounter Location Date Provider Diagnosis [address] [address] 01/25/2024 Nela Black Tinea unguium B35.1 ; Pain in right toe(s) M79.674 ; Pain in left toe(s) M79.675 and Ingrown nail L60.[address] [address] 02/11/2024 Nela Black Skin ulcer of toe of right foot, limited to breakdown of skin L97.[address] [address] 06/24/2024 William Morales Atherosclerosis of [place] artery of both lower extremities, with unspecified presence of clinical manifestation I70.203 and Ingrown nail L60.[address] [address] 11/11/2024 Nela Black Ingrown nail L60.[address] [address] 12/31/2023 Nela Black Assessments Encounter Date Diagnosis (ICD Code) Assessment Notes Treatment Notes Treatment Clinical Notes Section Notes 01/25/2024 Tinea unguium (ICD-10 - B35.1) 01/25/2024 Pain in right toe(s) (ICD-10 - M79.674) 02/11/2024 Skin ulcer of toe of right foot, limited to breakdown of skin (ICD-10 - L97.511) Nonapplicable Patient Educated with: WOUND CARE INSTRUCTIONS. pdf (WOUND CARE INSTRUCTIONS. pdf) 06/24/2024 Ingrown nail (ICD-10 - L60.0) 06/24/2024 Atherosclerosis of [place] artery of both lower extremities, with unspecified presence of clinical manifestation (ICD-10 - I70.203) Q7(A), Q8(2B), Q9(1B,2C) 11/11/2024 Ingrown nail (ICD-10 - L60.0) 01/25/2024 Pain in left toe(s) (ICD-10 - M79.675) 01/25/2024 Ingrown nail (ICD-10 - L60.0) 02/11/2024 Other Plan Of Treatment Pending Test Test Name Order Date 40778-Agsjlgsy Plate 01/25/2024 61030-Sotrvkds Plate 06/24/2024 05653- Debride <25 sq cm 02/11/2024 Next Appt Details Provider Name:Nela Mueller , 01/05/2025 02:00:00 PM, [address] [place] [address], [phone], Provider Name:Nela Mueller , 01/19/2025 09:15:00 AM, [address] [place] [address], [phone], Insurance Providers Payer Name Payer Address Payer Phone Subscriber Number Group Number Insured Name Patient Relationship to Insured Coverage Start Date Coverage End Date Medicare National [employer] [address] [place] [address] [id number] Annie Kaufman Self - patient is the insured [employer] [address] [place] [address] [id number] Annie Kaufman Self - patient is the insured Medical (General) History Medical History History ICD Code High blood pressure Kidney disease Measles Mumps Chicken pox Joint implants/screws Thyroid disorder Surgical History Surgery Date(Month/Year) broken wrists 04/2016
--- OUTSIDE RECORDS SUMMARY | 2024-12-06 08:50 | XMS_ITS | Clinical Summary ---
Author Organization [facility] Address [address] [place] [address] Phone Care Team Providers Care Fuel Pilot Engineer Name Role Phone Cheyenne Ladd MD Primary Care Provider Allergies Active Allergy Reactions Criticality Noted Date Comments Diltiazem Other (see comments) 01/17/2021 Oxycodone Other (see comments) 01/17/2021 Medications acetaminophen (TYLENOL) 325 MG tablet 650 mg, = 2 tab, Tab, Oral, q6hr PRN, Refills 0, Pain scale 1-5 05/19/2016 Active midodrine (PROAMATINE) 2.5 MG tablet Take 1 tablet by mouth 2 (two) times a day 05/24/2017 Active levothyroxine (SYNTHROID, LEVOTHROID) 112 MCG tablet Take 112 mcg by mouth 1 (one) time each day 12/30/2020 Active losartan (COZAAR) 50 MG tablet 06/13/2021 Active Active Problems Problem Noted Date Diagnosed Date Orthostatic hypotension 01/17/2021 Closed fracture of carpal bone 01/11/2021 Overview (01/11/2021): Bilateral Hypokalemia 01/11/2021 Hypothyroidism 01/11/2021 Low blood pressure 01/11/2021 Resolved Problems Problem Noted Date Diagnosed Date Resolved Date 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 Hypertensive urgency 01/11/2021 021 Family History Medical History Relation Comments Diabetes Father Heart disease Father Hypertension Father Heart disease Mother Hypertension Mother Hypertension Sibling sister Relation Status Comments Father Unknown Mother Unknown Sibling Social History Tobacco Use Types Packs/Day Years Used Date Smoking Tobacco: Never Smokeless Tobacco: Never Tobacco Cessation:Counseling Given: Not Answered Alcohol Use Standard Drinks/Week Comments Yes 0 (1 standard drink = 0.6 oz pure alcohol) Alcoholic Drinks/day: Occasional social drink Comments Unknown Sex and Gender Information Value Date Recorded Sex Assigned at Not on file Legal Sex Female 4:49 PM EST Gender Identity Not on file Sexual Orientation Not on file Last Filed Vital Signs Vital Sign Reading Time Taken Comments Blood Pressure 137/66 05/14/2023 1:03 PM EDT Pulse 70 05/14/2023 1:03 PM EDT Temperature - - Respiratory Rate - - Oxygen Saturation 97% 05/14/2023 1:03 PM EDT Inhaled Oxygen Concentration - - Weight 63.3 kg (139 lb 9.6 oz) 05/14/2023 1:03 P M EDT Height 170.2 cm (5' 7 ) 07/08/2020 12:00 PM EDT Body Mass Index 21.86 07/08/2020 12:00 PM EDT Plan of Treatment Health Maintenance Due Date Last Done Comments Breast Cancer Screening 1950 Pneumococcal Vaccine: 65+ Ye ars (1 of 2 - PCV) 01/25/1956 Colorectal Cancer Screening: Annual FOBT 1999 Colorectal Cancer Screening: Sigmoidoscopy 1999 Influenza Vaccine (#1) 2024 Colorectal Cancer Screening: Colonoscopy 02/06/2033 02/06/2023 Hepatitis B Vaccine Aged Out No longe r eligible based on patient's age to complete this topic Insurance [facility] MEDICARE [facility] MEDICARE Care Teams Fuel Pilot Engineer Relationship Specialty Start Date End Date Cheyenne Ladd MD [address] [place] [address] PCP - General 10/04/20
--- OUTSIDE RECORDS SUMMARY | 2024-12-06 08:50 | XMS_ITS ---
[facility] Organization [facility] Address [address] [facility] [place] [address] Care Team Providers Care Twist Maker Name Role Phone Cheyenne Ladd Primary Care Provider Unavailab Mynor Leónmie Unavailable [phone] William Morales Unavailable [phone] Allergies Allergen (clinical drug ingredient) Drug/Non Drug Allergy documented on EMR Reaction Allergy Type Onset Date Status diltiazem Cardizem Unknown Drug Allergy Active acetaminophen / oxycodone Percocet Unknown Drug Allergy Active oxycodone Oxycodone Unknown Drug Allergy Active REASON FOR VISIT At Risk Footcare, Ingrown Nail Medications Medication SIG (Take, Route, Frequency, Duration) Notes Start Date End Date Status Metoprolol Succinate Active Losartan Potassium 100 MG Oral for 90 Days Active Metoprolol Succinate ER 25 MG Oral for 90 Days Active Levothyroxine Sodium Active Levothyroxine Sodium 100 MCG Oral for 90 Days Active Losartan Potassium A ctive Social History Tobacco Use: Social History Observation Description Date Details (start date - stop date) Former Smoker NA - NA Tobacco Use/Smoking Question Answer Notes Are you a: former smoker Additional Findings: Tobacco Non-User Current no n-smoker Alcohol Screen Question Answer Notes Did you have a drink containing alcohol in the p ast year? Yes Points 0 Interpretation Negative Tobacco use other than smoking: Question Answer Notes Are you an other tobacco user? No Problems Problem Type SNOMED Code ICD Code Onset Dates Problem Status W/U Status Risk Notes Problem Atherosclerosis of [place] arteries of the extremities (545179386091070) Atherosclerosis of [place] artery of both lower extremities, with unspecified presence of clinical manifestation (I70.203) Active confirmed Q7(A), Q8(2B), Q9(1B,2 C) Vital Signs Height 5 ft 7 in in 06/24/2024 Weight 140 lbs 06/24/2024 BMI 21.92 kg/m2 06/24/2024 Blood pressure systolic 120 mm Hg 06/24/20 24 Blood pressure diastolic 80 mm Hg 024 Procedures Procedure Date Ordered Date Performed Result Body Sit e 94958-Cbblcdlm Plate 06/24/2024 N/A Encounters Encounter Location Date Provider Diagnosis [facility] [address] [address] 06/24/2024 William Morales Atherosclerosis of [place] artery of both lower extremities, with unspecified presence of clinical manifestation I70.203 and Ingrown nail L60.0 Assessments Encounter Date Diagnosis (ICD Code) Assessment Notes Treatment Notes Treatment Clinical Notes Section Notes 06/24/2024 Atherosclerosis of [place] artery of both lower extremities, with unspecified presence of clinical manifestation (ICD-10 - I70.203) Q7(A), Q8(2B), Q9(1B,2C) 06/24/2024 Ingrown nail (ICD-10 - L60.0) Plan Of Treatment Pending Test Test Name Order Date 51519-Mzwqapbq Plate 06/24/2024 Next Appt Details Follow Up: prn, Reason: Provider Name:Nela Mueller , 01/05/2025 02:00:00 PM, [address] [place] [address], [address], Provider Name:Nela Mueller , 01/19/2025 09:15:00 AM, [address] [place] [address], [phone], Procedure Notes * Category Sub-Category Detail Notes Nail Avulsion Procedure A fine sterile e levator was placed between the eponychium, nail fold, and nail plate to separate the structures. A sterile nail splitter, and/or sterile 316 blade, was then used to longitudinally section the nail along its entire length through the eponychium to the area under the nail fold. The offending portion of nail was from the nail bed with a rolling action and then removed with a hemostat. No underlying bone was identified. There was minimal bleeding as hemostasis was achieved through the temporary use of either a digital tourniquet or the aforementioned local with epinephrine. A bacitracin sterile dressing was applied. Local wound aftercare instructions were discussed and dispensed. The patient was informed of both conservative and future surgical procedures to prevent recurrence. Tylenol or Motrin was recommended for pain or discomfort (93260) , CIRCULATION: Pt was advised as to the risk of delayed or nonhealing due to circulation. Pt is to call the office with any questions, concerns, or complications Anesthesia 3cc of 1 percent Lid ocaine Plain local anesthesic utilizing aseptic technique Location Bilateral nail dougie r , TA Progress Notes * Annie TEJADADOB: [birth year] (74 yo F)Acc No.[id number]:06/24/2024 Progress Note Patient:?Annie TEJADA Provider:?William Morales DPM :1950???Age:74 Y???Sex:Female D ate:06/24/2024 Address: [address], [place] [facility] Pcp:Cheyenne Ladd Subjective: * Chief Complaints: * ???At Risk FootcareIngrown N ail * HPI: ???At Risk footcare:?Pt States Last PCP Visit:?Date?06/16/2024 * ROS:?General/Constitutional:?Nausea?denies.?Vomiting?denies.?Hunger Thirst?denies.?Loss appetite?denies.?Chills?denies.?Fatigue?denies.?Fever?denies.?Night Sweats?denies.?Unexplained weight loss?denies.?Unexplained [...] wri sts 04/2016 * Hospitalization/Major Diagno stic Procedure:?Denies Past Hospitalization * Family History:?Mother: dece ased, diagnosed with Diabetic - NIDDM, Unspecified essential hypertension, Unspecified heart disease.?Father: , diagnosed with Unspecified essential hypertension, Unspecified heart disease.? * Social History:?Tobacco Use:?Tobacco Use/Smoking?Are you a:?former smoker ?Additional Findings: Tobacco Non-User?Current non-smoker ?Tobacco use other than smoking?Are you an other tobacco user??No ???Drugs/Alcohol:?Drugs?Have you used drugs other than those for medical reasons in the past 12 months??No ?Alcohol Screen?Did you have a drink containing alcohol in the past year??Yes ?Points?0 ?Interpretation?Negative ???Miscellaneous:?Caffeine: yes. ?Children: no. ?Exercise: no. ?Marital status: single. * Medications:?TakingLevothyro xine Sodium 100 MCG Tablet Oral Losartan Potassium 100 MG Tablet Oral Metoprolol Succinate ER 25 MG Tablet Extended Release 24 Hour Oral Metoprolol Succinate Losartan Potassium Levothyroxine Sodium Medication List reviewed and reconciled with the patientTaking Levothyroxine Sodium 100 MCG Tablet Oral Taking Losartan Potassium 100 MG Tablet Oral Taking Metoprolol Succinate ER 25 MG Tablet Extended Release 24 Hour Oral Taking Metoprolol Succinate Taking Losartan Potassium Taking Levothyroxine Sodium Medication List reviewed and reconciled with the patient * Allergies:?PercocetOxycodone Cardizemyes[Allergies Verified] Objective: * Vitals:?Ht:5 ft 7 in, Wt:140 , BMI:21.92, Shoe size:6.5, BP:120/80mm Hg, Ht-cm: 170.18 cm, Wt-k.5 kg. * Examination: ???Vascular: ?DP PULSES (B):?1/4, B/L.?PT PULSES (B):? 0/4, B/L.?CAPILLARY FILL TIME:? delayed, all digits, B/L.?TROPHIC CONDITION-TEXTURE/ELASTICITY/TURGOR/HAIR GROWTH (B):? decreased, fragile, thin, shiny, with sparse to absent hair growth, B/L.?TEMPERTURE GRADIENT (C):? decreased, cool to cool, proximal to distal, B/L.?PIGMENTATION:?mottled, B/L.?EDEMA (C):?1/4 , non-pitting , without aching pain , Leg(s) , Ankle(s) , Right , 2/4 , non-pitting , without aching pain , Leg(s) , Ankle(s) , Left - Pt states this condition has been normal for years.?CLAUDICATION (C):?denies, B/L.?REST PAIN:?denies, B/L.?PARESTHESIA (C):?absent, B/L.?BURNING (C):?absent, B/L.?Dermatologic: ?SKIN FINDINGS:?Skin exam reveals Keratotic lesion(s) located at , SUB MTH (s) , 1 , B/L , Heel(s) , B/L.?Ingrown Nail: ?INSPECTION:?Reveals nail incurvation, pain on palpation, groove hypertrophy , Bilateral nail borders , TA.? Assessment: * Assessment: 1.?Ingrown nail - L60.0???Sp ecify :Bilateral nail border, TA???2.?Atherosclerosis of [place] artery of both lower extremities, with unspecified presence of clinical manifestation - I70.203???Notes :Q7(A), Q8(2B), Q9(1B,2C)??? Plan: * Treatment: * Procedures:?Nail Avulsion:?Location?Bilateral nail border , TA.?Anesthesia?3cc of 1 percent Lidocaine Plain local anesthesic utilizing aseptic technique.?Procedure?A fine sterile elevator was placed between the eponychium, nail fold, and nail plate to separate the structures. A sterile nail splitter, and/or sterile 316 blade, was then used to longitudinally section the nail along its entire length through the eponychium to the area under the nail fold. The offending portion of nail was from the nail bed with a rolling action and then removed with a hemostat. No underlying bone was identified. There was minimal bleeding as hemostasis was achieved through the temporary use of either a digital tourniquet or the aforementioned local with epinephrine. A bacitracin sterile dressing was applied. Local wound aftercare instructions were discussed and dispensed. The patient was informed of both conservative and future surgical procedures to prevent recurrence. Tylenol or Motrin was recommended for pain or discomfort (53867) , CIRCULATION: Pt was advised as to the risk of delayed or nonhealing due to circulation. Pt is to call the office with any questions, concerns, or complications.? * Procedure Codes:?83071 Avuls ion Plate, Modifiers: TA * Preventive Medicine:? ??Counseling:?Discussion:?-13: Office or other [...] have encouraged the patient to call the office.? ??Screening/Special Tests:?Fall Risk?Screening:?No falls in the past year ?FALLS: Screening for Future Fall Risk?Have you had any falls with injury in the past year??No * Follow Up:?prn * Images: * Sign off status: Completed true * Provider:?William Morales DPM Date:?2023 Generated for Felicia denny/Robi/Millie on:?12/06/2024 08:50 AM EDT History and Physical Notes * HPI (History of Present Illness) Category Sub-Category Detail Notes Category Not es At Risk footcare Pt States Last PCP Visit: Date: Examination Category Sub-Category Detail Notes Category Not es Ingrown Nail INSPECTION: Reveals nail inc urvation, pain on palpation, groove hypertrophy , Bilateral nail borders , TA Dermatologic SKIN FINDINGS: Skin exam reveal s Keratotic lesion(s) located at , SUB MTH (s) , 1 , B/L , Heel(s) , B/L Vascular DP PULSES (B): 1/4, B/L PT PULSES (B): 0/4, B/L CAPILLARY FILL TIME: delayed, all digits , B/L TEMPERTURE GRADIENT (C): decreased, cool to cool, proximal to distal, B/L TROPHIC CONDITION-TEXTURE/ELASTICITY/TURGOR/HAIR GROWTH (B): decreased, fragile, thin, shiny, with sp arse to absent hair growth, B/L EDEMA (C): 1/4 , non-pitting , without aching pain , Leg(s) , Ankle(s) , Right , 2/4 , non-pitting , without aching pain , Leg(s) , Ankle(s) , Left - Pt states this condition has been normal for years CLAUDICATION (C): denies, B/L REST PAIN: denies, B/L PIGMENTATION: mottled, B/L PARESTHESIA (C): absent, B/L BURNING (C): absent, B/L
[2024-12-06 09:03] LABS: MANUAL DIFF FLAG NO
[2024-12-06 09:43] LABS: Basophils Absolute Auto 0.1 X10*3/uL (0.0-0.2); Basophils Percent Auto 1.4 % (0-2); Eosinophils Absolute Auto 0.2 X10*3/uL (0.0-0.4); Eosinophils Percent Auto 4.5 % (0-4); Hematocrit 41.7 % (37.0-47.0); Hemoglobin 13.2 g/dl (12.0-16.0); Imm Gran Abs Auto 0.01 X10*3/uL (0.00-0.03); Imm Gran Pct Auto 0.2 % (0.0-0.4); Lymphocytes Absolute Auto 1.5 X10*3/uL (1.2-4.9); Lymphocytes Percent Auto 35.9 % (20-40); Mean Corpuscular HGB Conc 31.7 g/dl (31.0-35.0); Mean Corpuscular Hemoglobin 29.3 pg (27.0-33.0); Mean Corpuscular Volume 92.7 fL (80.0-98.0); Mean Platelet Volume 12.7 fL (9.4-12.3); Monocytes Absolute Auto 0.3 X10*3/uL (0.1-1.2); Monocytes Percent Auto 8.1 % (2-11); Neutrophils Absolute Auto 2.1 x10*3/uL (2.0-8.3); Neutrophils Percent Auto 49.9 % (45-73); Platelet Count 155 X10*3/uL (160-400); Red Cell Distribution Width 13.4 % (11.0-16.0); White Blood Count 4.2 X10*3/uL (4.8-10.8)
[2024-12-06 10:45] LABS: Alanine Aminotransferase 15 U/L (0-31); Albumin Level 3.8 g/dL (3.5-5.0); Alkaline Phosphatase 59 U/L (39-117); Anion Gap 12 (12-20); Aspartate Amino Transferase 18 U/L (5-31); Bilirubin Total 0.6 mg/dL (0.0-1.0); Blood Urea Nitrogen 19 mg/dL (9-16); Calcium 8.8 mg/dL (8.4-10.2); Carbon Dioxide 27 mmol/L (22-29); Chloride 108 mmol/L (96-108); Estimated Glomerular Filt Rate 45; Glucose Random 94 mg/dL (60-115); Potassium 4.5 mmol/L (3.3-5.1); Sodium 142 mmol/L (135-145); Total Protein 7.1 g/dL (6.5-8.0)
[2024-12-06 10:56] LABS: Thyroid Stimulating Hormone 3.62 uIU/mL (0.32-4.0)
== END 2024-12-06 08:47 | disposition home or self-care (01) ==
LOC: HO.LAB 08:46
PROVIDERS: PCP Internal Medicine; Visit Provider Internal Medicine
DX: D69.6 Thrombocytopenia, unspecified (principal); E03.9 Hypothyroidism, unspecified; I95.1 Orthostatic hypotension; N18.30 Chronic kidney disease, stage 3 unspecified
CPT/HCPCS: 36415; 80053; 84443; 85025

== ENCOUNTER 2024-12-16 09:29 | Outpatient (AMB) | payer MEDICARE, SELFPAY ==
--- NOTE | 2024-12-16 09:29 | HO.NEPHOV_ITS ---
Vital Signs 12/16/24 09:30 Height 5 ft 7 in Weight 151 lb BMI 23.6 BP 146/88 H Blood Pressure Location Rt brachial Position Sitting Pulse 84 Pulse Source Pulse Oximeter Pulse Oximetry (%) 99 Oxygen Delivery Method Room Air Intake Visit Reasons: Orthostatic hypotension/ LVM Focuser Required: No Accompanied by: Self / Same As Patient Allergies diltiazem [From CARDIZEM] Allergy (Intermediate, Verified 12/16/24 09:32) RASH ITCHING oxycodone [OXYCODONE] Allergy (Unknown, Verified 12/16/24 09:32) NAUSEA & VOMITING Medication List - Last Reconciled 12/16/24 by Pravin Echeverria MD erythromycin 1 appl ophthalmic (eye) DAILY levothyroxine 100 mcg PO DAILY losartan 100 mg orally; night metoprolol succinate ER 25 mg PO DAILY HPI Comments Details: 73-year-old woman with a history of supine hypertension and orthostatic hypotension. Renal function stable. Occasionally she has lightheadedness when she stands up, but reports this has been much better recently. Currently she is on losartan 100 mg and metoprolol 25 mg q.p.m.. no longer taking midodrine (previously on for intermittently low BP) She is being followed by Cardiology and his tilt-table test was done, this was consistent with orthostatic hypotension. reports dizziness is well-controlled at this time, only if she stands up quickly otherwise doing ok she is drinking lots of fluids throughout the day she is not taking any nsaids or other OTC medications she does not take her BP regularly at home, reports over last few months her dizziness has been well-controlled no OTC nsaids no new dyspnea, LE swelling (chronic left lower extremity swelling for many years, reports remains unchanged) reports chronic urinary urgency during the day, no recent changes 12/16/24 Not using TEDs [facility] Medical History History of palpitations History of orthostatic hypotension Thrombocytopenia Leukopenia History of fracture of wrist HTN (hypertension) Hypothyroid CKD (chronic kidney disease) Blind left eye Surgical History Hx of colonoscopy History of surgery on wrist Family History Mother Heart problem H/O heart bypass surgery Father Heart problem H/O heart bypass surgery Sister Heart problem H/O heart bypass surgery Social History Patient Tobacco Use Status: Former Tobacco user Physical Exam Vital Signs: Last Vital Signs Pulse 84 12/16/24 09:30 BP 146/88 H 12/16/24 09:30 Pulse Ox 99 12/16/24 09:30 Oxygen Delivery Method Room Air 12/16/24 09:30 BMI result Body Mass Index 23.6 Sitting BP 120/70 Standing 100/50 Const General: comfortable and no acute distress Orientation/consciousness: patient oriented x3 Neck Neck: Yes supple Resp Auscultation: clear to auscultation bilaterally Cardio Jugular venous distension: no JVD Rate: regular rate GI Palpation (GI): Soft to palpation Auscultation: normal bowel sounds General: Yes no CVA tenderness Back/Spine/Pelvis Back: no CVA tenderness Skin General skin exam: no rashes or lesions noted Neuro General: patient oriented x3 and moves all extremities Extrem General: Yes no pedal edema (chronic left ankle swelling, reports chronic for years/unchanged ) Results Reviewed Nephrology Results: Hgb 13.2 g/dl (12.0-16.0) 12/06/24 WBC 4.2 X10*3/uL (4.8-10.8) L 12/06/24 Plt Count 155 X10*3/uL (160-400) L 12/06/24 Sodium 142 mmol/L (135-145) 12/06/24 Potassium 4.5 mmol/L (3.3-5.1) 12/06/24 Chloride 108 mmol/L (96-108) 12/06/24 Carbon Dioxide 27 mmol/L (22-29) 12/06/24 BUN 19 mg/dL (9-16) H 12/06/24 Creatinine 1.18 mg/dL (0.5-1.4) 12/06/24 Calcium 8.8 mg/dL (8.4-10.2) 12/06/24 Assessment & Plan Assessment & Plan (1) Orthostatic hypotension: Comment: Supine hypertension with orthostatic hypotension. Code(s): I95.1 - Orthostatic hypotension Category: Medical Plan: Stable advised continue current medication regimen to control blood pressure (metoprolol 25mg nightly, losartan 100mg daily in the nightly) continue to push fluids to help reduce orthostasis she will continue to check blood pressure, particularly if symptomatic Discussed all orthostatic precautions including JUD stockings Renal function stable Cr 1.18 Coding Level of Care Code Est Pt Level 4 (27721) Diagnoses Orthostatic hypotension I95.1
[2024-12-16 09:30] VITALS: BP 146/88; PULSE 84; O2SAT 99; BMI 23.6
--- OUTSIDE RECORDS SUMMARY | 2024-12-16 10:40 | XMS_ITS | Clinical Summary ---
Author Organization [facility] Address [address] [place] [address] Phone Care Team Providers Care Home Visitor Home Base Head [employer] Name Role Phone Cheyenne Ladd MD Primary Care Provider [phone] Social History Tobacco Use Types Packs/Day Years [...] Signed Date: 09/09/2024 12:34 ET Workstation ID: [id number] Transcribed By: Self Edit Transcribed Date: 09/09/2024 12:28 ET Narrative 09/09/2024 12:34 PM EST EXAM: MAMMO DIGITAL SCREENING W SUNITHA BILAT EXAM DATE AND TIME: 09/06/2024 10:12 AM HISTORY: ??Screening mammogram from breast cancer COMPARISON: ??08/25/2023 through 08/16/2020 TECHNIQUE: Bilateral digital breast tomosynthesis was performed in the CC and MLO projections. Computer aided detection with [employer] AI 3D 3.1 was employed. TISSUE DENSITY: [...] MLO projections. Computer aided detection with [employer] AI 3D 3.1was employed. TISSUE DENSITY: b. [...] Signed Date: 09/09/2024 12:34 ET Workstation ID: [id number] Transcribed By: Self Edit Transcribed Date: 09/09/2024 12:28 ET us Self Referral Sppl IMG BI PROCEDURES Final Resul t from Last 3 Months or Most Recently Relevant to Health Maintenance Insurance MEDICARE Care Teams Home Visitor Home Base Head [employer] Relationship Specialty Start Date End Date Cheyenne Ladd MD [address] [facility] [address] PCP - General Internal Medicine 09/21/15
--- OUTSIDE RECORDS SUMMARY | 2024-12-16 10:40 | XMS_ITS | Patient Health Record ---
Author Organization [facility] Address [address] [place] [address] Care Team Providers Care Service Advocate Contact Name Role Phone Germánbalaji Cheyenne Primary Care Provider UnavailMike Meeks Jr Unavailable [phone] Allergies Allergen (clinical drug ingredient) Drug/Non Drug [...] 2.5 MG TAKE 1 TABLET BY [facility] TWICE A DAY Oral for 90 Active [...] Problem Status W/U Status Risk Notes Problem [id number] Encounter for screening for malignant neoplasm of colon (Z12.11) Active confirmed Problem 559252054 Encounter for long-term (current) use of other high-risk medications (Z79.899) Active confirmed Problem 516931929 Abnormal findings in stool (R19.5) Active confirmed Plan Of Treatment Future Test Test Name Order Date COLONOSCOPY 06/30/2015 COLONOSCOPY 02/09/2022 Insurance Providers Payer Name Payer Address Payer Phone Subscriber Number Group Number Insured Name Patient Relationship to Insured Coverage Start Date Coverage End Date MEDICARE OF [place] [address] [place] [id number] [id number] ANA M TEJADA Self - patient is the insured [employer] ATT[employer] CLAIMS [address] [place] [address] [id number] ANA M TEJADA Self - patient is the insured Medical (General) History Medical History History ICD Code 10/11/2003 colonoscopy, normal Anemia, with history of low white blood cells and platelets as well hypothroid hypertension hx of bilateral broken wrist 2016 Chronic kidney disease Left eye blindness Surgical History Surgery Date(Month/Year) broken wrist 2015
--- OUTSIDE RECORDS SUMMARY | 2024-12-16 10:40 | XMS_ITS ---
Author Organization [facility] [place] Address [address] [facility] [place] [address] Care Team Providers Care Group Account Director Name Role Phone Cheyenne Ladd Primary Care Provider Unavailab sadie MuellerNela Unavailable [phone] Allergies Allergen (clinical drug ingredient) Drug/Non Drug [...] 025 Encounters Encounter Location Date [facility] [place] [address] 11/11/2024 Nela Mueller Ingrown nail L60.0 Assessments Encounter Date Diagnosis (ICD Code) Assessment Notes Treatment Notes Treatment Clinical Notes Section Notes 11/11/2024 Ingrown nail (ICD-10 - L60.0) Plan Of Treatment Next Appt Details Follow Up: prn, Reason: Provider Name:Nela Mueller , 01/05/2025 02:00:00 PM, [address] [place], [address], Provider Name:Nela Mueller , 01/19/2025 09:15:00 AM, [address] [place] [address], [phone], Progress Notes * Annie TEJADADOB: [birth year] (74 yo F)Acc No.[id number]:11/11/2024 Progress Note Patient:?Annie TEJADA Provider:?Nela MuellerUZIEL :1950???Age:74 Y???Sex:Female D ate:11/11/2024 Address: [address], [place] [facility] Pcp:Cheyenne Ladd Subjective: * Chief Complaints: * [...] Mueller DPM Date:?2024 Generated for Felicia denny/Robi/Millie on:?12/16/2024 10:39 AM EDT History and Physical Notes * Examination Category Sub-Category Detail Notes Category Not es Ingrown Nail INSPECTION: Reveals nail inc urvation, pain on palpation, groove hypertrophy, groove ischemia, Medial nail border, T5
--- OUTSIDE RECORDS SUMMARY | 2024-12-16 10:40 | XMS_ITS ---
Author Organization [facility] Address [address] [place] [address] Care Team Providers Care Driver Manager Name Role Phone Cheyenne Ladd Primary Care Provider Unavailab sadie Nela Mueller Unavailable [phone] William Morales Unavailable [phone] REASON FOR VISIT Seen Sooner Encounters Encounter Location Date Provider Diagnosis [address] [address] 06/27/2024 William Morales Plan Of Treatment Next Appt Details Provider Name:Nela Mueller , 01/05/2025 02:00:00 PM, [address] [place] [address], [phone], Provider Name:Nela Mueller , 01/19/2025 09:15:00 AM, [address] [place] [address], [address], Progress Notes * Annie TEJADADOB: [birth year] (74 yo F)Acc No.[id number]:06/27/2024 Progress Note Patient:?Annie TEJADA Provider:?William Morales DPM :1950???Age:74 Y???Sex:Female D ate:06/27/2024 Address:[address] [place] [address] [id number] Pcp:Cheyenne Ladd Subjective: * Chief Complaints: * [...] Morales DPM Date:?2023 Generated for Felicia denny/Robi/Millie on:?12/16/2024 10:39 AM EDT
--- OUTSIDE RECORDS SUMMARY | 2024-12-16 10:40 | XMS_ITS ---
Author Organization [facility] Address [address] [facility] [place] [address] Care Team Providers Care Metal Room Dental Technician Name Role Phone Cheyenne Ladd Primary Care Provider Unavailab Mynor Leónmie Unavailable [phone] William Morales Unavailable [phone] Allergies Allergen (clinical drug ingredient) Drug/Non Drug [...] W/U Status Risk Notes Problem Atherosclerosis of [place] arteries of the extremities (674513187536052) Atherosclerosis of [place] artery of both lower extremities, with unspecified presence of clinical manifestation (I70.203) Active confirmed Q7(A), Q8(2B), Q9(1B,2 C) Vital Signs Height 5 ft 7 in in 06/24/2024 Weight 140 lbs 06/24/2024 BMI 21.92 kg/m2 06/24/2024 Blood pressure systolic 120 mm Hg 06/24/20 24 Blood pressure diastolic 80 mm Hg 024 Procedures Procedure Date Ordered Date Performed Result Body Sit e 73907-Nzxntqzh Plate 06/24/2024 N/A Encounters Encounter Location Date Provider Diagnosis [facility] [address] [address] 06/24/2024 William Morales Atherosclerosis of one[place] artery of both lower extremities, with unspecified presence of clinical manifestation I70.203 and Ingrown nail L60.0 Assessments Encounter Date Diagnosis (ICD Code) Assessment Notes Treatment Notes Treatment Clinical Notes Section Notes 06/24/2024 Atherosclerosis of oneida artery of both lower extremities, with unspecified presence of clinical manifestation (ICD-10 - I70.203) Q7(A), Q8(2B), Q9(1B,2C) 06/24/2024 Ingrown nail (ICD-10 - L60.0) Plan Of Treatment Pending Test Test Name Order Date 53029-Jiycnmgj Plate 06/24/2024 Next Appt Details Follow Up: prn, Reason: Provider Name:Nela Mueller , 01/05/2025 02:00:00 PM, [address] [place] [address], [phone], Provider Name:Nela Mueller , 01/19/2025 09:15:00 AM, [address] [place] [address], [phone], Procedure Notes * Category Sub-Category Detail Notes [...] Motrin was recommended for pain or discomfort (77415) , CIRCULATION: Pt was advised as to the risk of delayed or nonhealing due to circulation. Pt is to call the office with any questions, concerns, or complications Anesthesia 3cc of 1 percent Lid ocaine Plain local anesthesic utilizing aseptic technique Location Bilateral nail dougie r , TA Progress Notes * Annie TEJADADOB: [birth year] (74 yo F)Acc No.[id number]:06/24/2024 Progress Note Patient:?Annie TEJADA Provider:?William Morales DPM :1950???Age:74 Y???Sex:Female D ate:06/24/2024 Address: [address], [place] [facility] Pcp:Cheyenne Ladd Subjective: * Chief Complaints: * [...] L60.0???Sp ecify :Bilateral nail border, TA???2.?Atherosclerosis of one[place] artery of both lower extremities, with unspecified [...] Motrin was recommended for pain or discomfort (44748) , CIRCULATION: Pt was advised as to the risk of delayed or nonhealing due to circulation. Pt is to call the office with any questions, concerns, or complications.? * Procedure Codes:?02437 Avuls ion Plate, Modifiers: TA * Preventive [...]
--- OUTSIDE RECORDS SUMMARY | 2024-12-16 10:40 | XMS_ITS | Patient Health Record ---
[facility] Organization [facility] Address [address] [facility] [place], [place] [address] Care Team Providers Care Net Mvc Developer Name Role Phone Cheyenne Ladd Primary Care Provider Unavailab Mynor Leónmie Unavailable [phone] William Morales Unavailable [phone] Allergies Allergen (clinical drug ingredient) Drug/Non Drug [...] W/U Status Risk Notes Problem Atherosclerosis of diomede arteries of the extremities (457084423027555) Atherosclerosis of diomede artery of both lower extremities, with unspecified presence of clinical manifestation (I70.203) Active confirmed Q7(A), Q8(2B), Q9(1B,2 C) Vital Signs Blood pressure diastolic 80 mm Hg 11/11/2024 Height 5ft 7in in 11/11/2024 Blood pressure systolic 120 mm Hg 11/11/2024 Weight 140 lbs 11/11/2024 BMI 21.92 kg/m2 11/11/2024 Procedures Procedure Date Ordered Date Performed Result Body Sit e 99113-Tzxxkqam Plate 01/25/2024 N/A 12435- Debride <25 sq cm 02/11/2024 N/A 74833-Rqqdqfts Plate 06/24/2024 N/A Encounters Encounter Location Date Provider Diagnosis [address] [address] 01/25/2024 Nela Black Tinea unguium B35.1 ; Pain in right toe(s) M79.674 ; Pain in left toe(s) M79.675 and Ingrown nail L60.[address] [address] 02/11/2024 Nela Black Skin ulcer of toe of right foot, limited to breakdown of skin L97.[address] [address] 06/24/2024 William Morales Atherosclerosis of diomede artery of both lower extremities, with unspecified presence of clinical manifestation I70.203 and Ingrown nail L60.[address] [address] 11/11/2024 Nela Black Ingrown nail L60.[address] [address] 12/31/2023 Nela Black Assessments Encounter Date Diagnosis [...] nail (ICD-10 - L60.0) 06/24/2024 Atherosclerosis of diomede artery of both lower extremities, with unspecified presence of clinical manifestation (ICD-10 - I70.203) Q7(A), Q8(2B), Q9(1B,2C) 11/11/2024 Ingrown nail (ICD-10 - L60.0) 01/25/2024 Pain in left toe(s) (ICD-10 - M79.675) 01/25/2024 Ingrown nail (ICD-10 - L60.0) 02/11/2024 Other Plan Of Treatment Pending Test Test Name Order Date 73312-Dzamkppx Plate 01/25/2024 47555-Dgrkcupk Plate 06/24/2024 99024- Debride <25 sq cm 02/11/2024 Next Appt Details Provider Name:Nela Mueller , 01/05/2025 02:00:00 PM, [address] [place] [address], [phone], Provider Name:Nela Mueller , 01/19/2025 09:15:00 AM, [address] [place] [address], [phone], Insurance Providers Payer Name Payer Address Payer Phone Subscriber Number Group Number Insured Name Patient Relationship to Insured Coverage Start Date Coverage End Date Medicare National Govt Svcs Inc [address] [facility] [place] [address] [id number] Annie Kaufman Self - patient is the insured [employer] [address] [place] [address] [id number] Annie Kaufman Self - patient is the insured Medical (General) History Medical History History ICD Code High blood pressure Kidney disease Measles Mumps Chicken pox Joint implants/screws Thyroid disorder Surgical History Surgery Date(Month/Year) broken wrists 04/2016
--- OUTSIDE RECORDS SUMMARY | 2024-12-16 10:40 | XMS_ITS | Clinical Summary ---
Author Organization [facility] Address [address] [place] [address] Phone Care Team Providers Care Commutator Presser Name Role Phone Cheyenne Ladd MD Primary [...] patient's age to complete this topic Insurance [facility] Care Teams Commutator Presser Relationship Specialty Start Date End Date Cheyenne Ladd MD [address] [place] [address] PCP - General 10/04/20
== END 2024-12-16 09:48 | disposition home or self-care (01) ==
LOC: HO.HKA 09:30
PROVIDERS: PCP Internal Medicine; Visit Provider Internal Medicine Hypertension Specialist
DX: I95.1 Orthostatic hypotension (principal)
CPT/HCPCS: 99214

== ENCOUNTER → 2024-12-16 09:29 | Outpatient (BNVA) | payer MEDICARE, SELFPAY | PROVIDERS: PCP Internal Medicine; Visit Provider Internal Medicine Hypertension Specialist | DX: I95.1 Orthostatic hypotension (principal) | CPT/HCPCS: 99212 ==

== ENCOUNTER 2025-02-04 08:24 | Outpatient (AMB) | payer MEDICARE, SELFPAY ==
--- NOTE | 2025-02-04 08:30 | MHC.OFFVIS ---
Vital Signs 02/04/25 08:32 Height 5 ft 7 in Weight 149 lb 14.629 oz BMI 23.5 BP 120/82 Blood Pressure Location Lt brachial Position Sitting Pulse 67 Intake Visit Reasons: 1 yr follow up Intake Note: 1 year follow-up with ekg feeling good Manufacturing Quality Inspector Required: No Allergies diltiazem [From CARDIZEM] Allergy (Intermediate, Verified 12/16/24 09:32) RASH ITCHING oxycodone [OXYCODONE] Allergy (Unknown, Verified 12/16/24 09:32) NAUSEA & VOMITING Medication List - Last Reconciled 02/04/25 by Garland Alegria MD levothyroxine 100 mcg PO DAILY losartan 100 mg PO DAILY@2200 metoprolol succinate ER 25 mg PO DAILY HPI Comments Details: Annie returns for follow-up. Originally seen in consultation regarding chest discomfort. Sounded atypical for angina. No other complaints like shortness of breath or in fact any other symptoms. There was concern because of family history of coronary disease/CABG in parents and sister. Patient herself has hypertension as well as orthostatic hypotension. However, workup was unremarkable. She also has hypertension, orthostatic hypotension. On a combination of metoprolol/losartan. On midodrine in the past but not anymore. Also goes to Nephrology. She states she feels good. No cardiac symptoms. [facility] Medical History History of palpitations History of orthostatic hypotension Thrombocytopenia Leukopenia History of fracture of wrist HTN (hypertension) Hypothyroid CKD (chronic kidney disease) Blind left eye Surgical History Hx of colonoscopy History of surgery on wrist Family History Mother Heart problem H/O heart bypass surgery Father Heart problem H/O heart bypass surgery Sister Heart problem H/O heart bypass surgery Social History Patient Tobacco Use Status: Former Tobacco user Review of Systems Const Denies chills, Denies fatigue, Denies fever(s), Denies frequent falls, Denies weakness, Denies weight gain and Denies weight loss ENT Denies dizziness Card Denies chest pain, Denies leg edema, Denies lightheadedness, Denies palpitations, Denies dyspnea, Denies dyspnea on exertion, Denies orthopnea and Denies other (loss of consciousness) Resp Denies cough, Denies dyspnea and Denies dyspnea on exertion GI Denies hematochezia and Denies change in stool character Musc Denies abnormal gait, Denies muscle weakness, Denies numbness, Denies radiating pain into limb and Denies tingling Neuro Denies abnormal gait, Denies dizziness, Denies frequent falls, Denies numbness, Denies tingling and Denies weakness Endo Denies fatigue and Denies palpitations Physical Exam Vital Signs: Last Vital Signs Pulse 67 02/04/25 08:32 BP 120/82 02/04/25 08:32 BMI result Body Mass Index 23.5 Const General: comfortable and no acute distress Orientation/consciousness: patient oriented x3 HEENT Other: Unremarkable Head: Yes normal to inspection Neck Neck: Yes normal visual inspection Chest Chest palpation & inspection: normal inspection of the chest Resp Auscultation: clear to auscultation bilaterally Cardio Palpation: normal PMI Heart sounds: S1 normal heart sound present, S2 normal heart sound present, no gallops, no murmurs and no rubs GI Palpation (GI): Soft to palpation Back/Spine/Pelvis Other: unremarkable Skin General skin exam: no rashes or lesions noted Neuro General: patient oriented x3 Extrem General: Yes normal to inspection Psych Mental Status: mental status grossly normal Office Procedures EKG Details: EKG with underlying sinus rhythm at 67/Min; possible old septal infarct; [place] [address]-Gzutdjqnmdmcnnbrh, Complete Assessment & Plan Assessment & Plan (1) HTN (hypertension): Code(s): I10 - Essential (primary) hypertension Category: Medical Qualifiers: Hypertension type: primary hypertension Qualified Code(s): I10 - Essential (primary) hypertension (2) Orthostatic hypotension: Comment: Supine hypertension with orthostatic hypotension. Code(s): I95.1 - Orthostatic hypotension Category: Medical (3) Cardiomyopathy: Code(s): I42.9 - Cardiomyopathy, unspecified Category: Medical Qualifiers: Cardiomyopathy type: unspecified Qualified Code(s): I42.9 - Cardiomyopathy, unspecified Plan Cardiac studies reviewed. Echocardiogram 2022 with LVEF of 45-50%. Mild global hypokinesis. In the exercise stress test 2022, she exercised for 7 METS and reached 90% of max predicted heart rate. Blood pressure went up to 190/90 mm Hg. No EKG evidence of ischemia. Perfusion imaging unremarkable. Overall, possible that high blood pressure causes intermittent chest pain. However, no issues recently. With regard to orthostatic hypotension, again no recent concerns and she no longer takes midodrine. In the tilt-table test, impression was orthostatic hypotension. Recommendation was to increase fluid intake. She may continue the blood pressure medications without any changes. Follow up one year. In the interim, call with concerns. Discussion Notes I discussed the management of her Essential Hypertension, emphasizing the importance of taking her medications regularly and monitoring her blood pressure. The patient understands the necessity of adherence to her antihypertensive regimen to prevent fluctuations in blood pressure known to occur in her case. A follow-up echocardiogram next year was planned to evaluate her cardiac function, considering previous slight reduction. She agreed to this approach, found the plan reasonable, and expressed understanding of the discussion. We agreed there is no need for immediate interventions as she is stable without acute symptoms. Patient was informed and verbally consented to the use of an ambient scribe for clinic note documentation during this visit. Patient Instructions: - Continue taking Losartan and Metoprolol without changes - Monitor your blood pressure and report any significant changes. - Continue with your current exercise routine and try to stay active with activities like gardening. - Follow up with a scheduled echocardiogram next year to check heart function. - Call if you experience any new symptoms, such as chest pain, dizziness, or unusual fatigue. Coding Level of Care Code Est Pt Level 3 (57969) Diagnoses Primary hypertension I10 Hypertension type: primary hypertension Orthostatic hypotension I95.1 Cardiomyopathy, unspecified type I42.9 Cardiomyopathy type: unspecified CPT Codes EKG - CPT: 03913-Qjvkkwodqdukffkwi, Complete ([id number])
[2025-02-04 08:32] VITALS: BP 120/82; PULSE 67; BMI 23.5
--- OUTSIDE RECORDS SUMMARY | 2025-02-04 08:37 | XMS_ITS | Patient Health Record ---
Author Organization [facility] [place] Address [address] [facility] [place], [place] [address] Care Team Providers Care Station Master Name Role Phone Cheyenne Ladd Primary Care Provider Unavailab Mynor Leónmie Unavailable [phone] William Morales Unavailable [phone] Allergies Allergen (clinical drug ingredient) Drug/Non Drug Allergy documented on EMR Reaction Allergy Type Onset Date Status diltiazem Cardizem Unknown Drug Allergy Active acetaminophen / oxycodone Percocet Unknown Drug Allergy Active oxycodone Oxycodone Unknown Drug Allergy Active Reason For Referral No Information Medications Medication SIG (Take, Route, Frequency, Duration) Notes Start Date End Date Status Levothyroxine Sodium 100 MCG Oral for 90 Days Active Metoprolol Succinate ER 25 MG Oral for 90 Days Active Losartan Potassium 100 MG Oral for 90 Days Active Levothyroxine Sodium Not-Taking Metoprolol Succinate Not-Taking Amoxicillin 875 MG Oral for 10 Days Active Losartan Potassium N ot-Taking Social History Tobacco Use: Social History Observation [...] W/U Status Risk Notes Problem Atherosclerosis of [place]ata[place] arteries of the extremities (706425429183835) Atherosclerosis of [place] artery of both lower extremities, with unspecified presence of clinical manifestation (I70.203) Active confirmed Q7(A), Q8(2B), Q9(1B,2 C) Problem Skin ulcer of to e of right foot with fat layer exposed (L97.512) Active confirmed Problem Skin ulcer of to e of left foot with fat layer exposed (L97.522) Active confirmed Vital Signs Blood pressure diastolic 80 mm Hg 01/19/2025 Height 5ft7in in 01/19/2025 Blood pressure systolic 120 mm Hg 01/19/2025 Weight 150 lbs 01/19/2025 BMI 23.49 kg/m2 01/19/2025 Procedures Procedure Date Ordered Date Performed Result Body Sit e 41167- Debride <25 sq cm 02/11/2024 N/A 23837-Hencclzx Plate 06/24/2024 N/A 90351-OIG 01/05/2025 N/A 25524-TJRVXBD SKIN/TISSUE 01/19/2025 N/A Encounters Encounter Location Date Provider Diagnosis [address] [address] 02/11/2024 Nela Black Skin ulcer of toe of right foot, limited to breakdown of skin L97.[address] [address] 06/24/2024 Williambarry Morales Atherosclerosis of cata[place]ba artery of both lower extremities, with unspecified presence of clinical manifestation I70.203 and Ingrown nail L60.[address] [address] 11/11/2024 Nela Black Ingrown nail L60.[address] [address] 01/05/2025 Nela Black Ingrown nail L60.[address] [address] 01/19/2025 Nela Black Skin ulcer of toe of right foot with fat layer exposed L97.512 Assessments Encounter Date Diagnosis (ICD Code) Assessment Notes Treatment Notes Treatment Clinical Notes Section Notes 02/11/2024 Skin ulcer of toe of right foot, limited to breakdown of skin (ICD-10 - L97.511) Nonapplicable Patient Educated with: WOUND CARE INSTRUCTIONS. pdf (WOUND CARE INSTRUCTIONS. pdf) 06/24/2024 Ingrown nail (ICD-10 - L60.0) 06/24/2024 Atherosclerosis of catawba artery of both lower extremities, with unspecified presence of clinical manifestation (ICD-10 - I70.203) Q7(A), Q8(2B), Q9(1B,2C) 11/11/2024 Ingrown nail (ICD-10 - L60.0) 01/05/2025 Ingrown nail (ICD-10 - L60.0) 01/19/2025 Skin ulcer of toe of right foot with fat layer exposed (ICD-10 - L97.512) Patient Educated with: WOUND CARE INSTRUCTIONS. pdf (WOUND CARE INSTRUCTIONS. pdf) 02/11/2024 Other 01/19/2025 Other Plan Of Treatment Pending Test Test Name Order Date 22518-Vurrqxop Plate 01/25/2024 31829-Obcqgukw Plate 06/24/2024 04170-OCL 01/05/2025 19719- Debride <25 sq cm 02/11/2024 38555-LNRLZSJ SKIN/TISSUE 01/19/2025 Next Appt Details Provider Name:Nela Mueller , 03/19/2025 10:00:00 AM, [address] [facility], [place], [address], Insurance Providers Payer Name Payer Address Payer Phone Subscriber Number Group Number Insured Name Patient Relationship to Insured Coverage Start Date Coverage End Date Medicare National Govt Svcs Inc [address] [facility] [address] [phone] [id number] Annie Kaufman Self - patient is the insured [employer] Blue [employer] [address] [place] [address] [id number] Annie Kaufman Self - patient is the insured Medical (General) History Medical History History ICD Code High blood pressure Kidney disease Measles Mumps Chicken pox Joint implants/screws Thyroid disorder Surgical History Surgery Date(Month/Year) broken wrists 04/2016
--- OUTSIDE RECORDS SUMMARY | 2025-02-04 08:37 | XMS_ITS ---
Author Organization [facility] [place] Address [address] [facility] [place] [address] Care Team Providers Care Day Trader Name Role Phone Cheyenne Ladd Primary Care Provider Unavailab sadie MuellerNela Unavailable [phone] Allergies Allergen (clinical drug ingredient) Drug/Non Drug [...] 025 Encounters Encounter Location Date Provider [facility] [place] [address] [place] [address] 11/11/2024 Nela Mueller Ingrown nail L60.0 Assessments Encounter Date Diagnosis (ICD Code) Assessment Notes Treatment Notes Treatment Clinical Notes Section Notes 11/11/2024 Ingrown nail (ICD-10 - L60.0) Plan Of Treatment Next Appt Details Follow Up: prn, Reason: Provider Name:Nela Mueller , 03/19/2025 10:00:00 AM, [address] [place], [address], Progress Notes * Annie TEJADADOB: [birth year] (74 yo F)Acc No.[id number]:11/11/2024 Progress Note Patient:?Annie TEJADA Provider:?Nela Mueller DPM :1950???Age:74 Y???Sex:Female D ate:11/11/2024 Address:[address] [place] [address] , [id number] Pcp:Cheyenne Ladd Subjective: * Chief Complaints: * [...] emors?denies.? * Medical History:? * Surgical History:?broken nicole sts 04/2016 * Hospitalization/Major Diagno stic Procedure:?No [...] Provider:?Nela Mueller DPM Date:?2024 Generated for Felicia denny/Robi/Deanitting on:?02/04/2025 08:37 AM EDT History and Physical Notes * Examination Category Sub-Category Detail Notes Category Not es Ingrown Nail INSPECTION: Reveals nail inc urvation, pain on palpation, groove hypertrophy, groove ischemia, Medial nail border, T5
--- OUTSIDE RECORDS SUMMARY | 2025-02-04 08:38 | XMS_ITS | Clinical Summary ---
Author Organization [facility] Address [address] [place] [address] Phone Care Team Providers Care Mental Measurements Teacher Name Role Phone Cheyenne Ladd MD Primary [...] Comments Breast Cancer Screening 1950 Pneumococcal Vaccine: 50+ Ye ars (1 of 2 - PCV) 1969 Colorectal Cancer Screening: Annual FOBT 1999 Colorectal Cancer Screening: Sigmoidoscopy 1999 Influenza Vaccine (Season Ended) 2025 Colorectal Cancer Screening: Colonoscopy 02/06/2033 02/06/2023 Hepatitis B Vaccine Aged Out No longe r eligible based on patient's age to complete this topic Insurance [facility] Medicare [facility] Medicare Care Teams Mental Measurements Teacher Relationship Specialty Start Date End Date Cheyenne Ladd MD [address] [place] [address] [address] [place], [place] PCP - General 10/04/20
--- OUTSIDE RECORDS SUMMARY | 2025-02-04 08:38 | XMS_ITS ---
Author Organization [facility] Address [address] [facility] [place] [address] Care Team Providers Care Physical Ther Name Role Phone Cheyenne Ladd Primary Care Provider Unavailab sadie MuellerNela Unavailable [phone] Allergies Allergen (clinical drug ingredient) Drug/Non Drug Allergy documented on EMR Reaction Allergy Type Onset Date Status diltiazem Cardizem Unknown Drug Allergy Active acetaminophen / oxycodone Percocet Unknown Drug Allergy Active oxycodone Oxycodone Unknown Drug Allergy Active REASON FOR VISIT Pcp-01/16, Open sore - Toe Medications Medication SIG (Take, Route, Frequency, Duration) Notes Start Date End Date Status Metoprolol Succinate ER 25 MG Oral for 90 Days Active Losartan Potassium 100 MG Oral for 90 Days Active Metoprolol Succinate Not-Taking Amoxicillin 875 MG Oral for 10 Days Active Losartan Potassium N ot-Taking Levothyroxine Sodium 100 MCG Oral for 90 Days Active Levothyroxine Sodium Not-Taking Social History Tobacco Use: Social History Observation Description Date Details (start date - stop date) Never Smoker NA - NA Tobacco use other than smoking: Question Answer Notes Are you an other tobacco user? No Tobacco Control (Standard) Question Answer Notes Tobacco use: Nonsmoker Additional Findings: Tobacco non-user Current no nsmoker Problems Problem Type SNOMED Code ICD Code Onset Dates Problem Status W/U Status Risk Notes Problem Skin ulcer of toe of left foot with fat layer exposed (L97.522) Active confirmed Problem Skin ulcer of toe of right foot with fat layer exposed (L97.512) Active confirmed Vital Signs Height 5ft7in in 01/19/2025 Weight 150 lbs 01/19/2025 BMI 23.49 kg/m2 01/19/2025 Blood pressure systolic 120 mm Hg 01/20/20 25 Blood pressure diastolic 80 mm Hg 025 Procedures Procedure Date Ordered Date Performed Result Body Sit e 94367-GZBLXIX SKIN/TISSUE 01/19/2025 N/A Encounters Encounter Location Date Provider Diagnosis [facility] [place] [address] [place] [address] 01/19/2025 Nela Mueller Skin ulcer of toe of right foot with fat layer exposed L97.512 Assessments Encounter Date Diagnosis (ICD Code) Assessment Notes Treatment Notes Treatment Clinical Notes Section Notes 01/19/2025 Skin ulcer of toe of right foot with fat layer exposed (ICD-10 - L97.512) Patient Educated with: WOUND CARE INSTRUCTIONS.p df (WOUND CARE INSTRUCTIONS.p df) 01/19/2025 Other Plan Of Treatment Treatment Notes Assessment Notes Skin ulcer of toe of right f oot with fat layer exposed Patient Educated with: WOUND CARE INSTRUCTIONS.pdf (WOUND CARE INSTRUCTIONS.pdf) Pending Test Test Name Order Date [id number] SKIN/TISSUE 01/19/2025 Next Appt Details Follow Up: 6 Weeks, Reason: Provider Name:Nela Mueller , 03/19/2025 10:00:00 AM, [address] [place] [address], [id number], Procedure Notes * Category Sub-Category Detail Notes Debride skin and subQ Open wound Physician of record performed open wound selective debridement of devitalized necrotic/nonviable soft tissue, fibrin, exudate, epidermis, dermis, thru skin and subcutaneous fat tissue, first 20 sq cm or less, using sharp dissection with sterile 15 blade, and/or tissue nippers. ANESTHESIA- was accomplished TOPICALLY with Lidocaine Hydrochloride Jelly 2 percent, Sterile antibiotic dressing applied. Hemostasis was controlled through direct pressure. Post debridement measurements: 10mm x4 mm x 3mm. Character of the wound post debriement is stable (66527) Progress Notes * Annie TEJADADOB: [birth year] (74 yo F)Acc No.[id number]:01/19/2025 Progress Notes Patient:?Annie TEJADA Provider:?Nela Mueller DPM :1950???Age:74 Y???Sex:Female D ate:01/19/2025 [facility] [place] , [place] Pcp:Cheyenne Ladd Subjective: * Chief Complaints: * ???Pcp-01/16Open sore - Toe * HPI: ???Skin problems:?Nature:?Open sore.?Treatments:?Topical abx, soaks.? * ROS:?General/Constitutional:?Nausea?denies.?Vomiting?denies.?Hunger Thirst?denies.?Loss appetite?denies.?Chills?denies.?Fatigue?denies.?Fever?denies.?Night Sweats?denies.?Unexplained weight loss?denies.?Unexplained weight gain?denies.?HEENTM:?Dentures?denies.?Dizziness?denies.?Glasses/contacts?admits.?Retinopathy?de nies.?Blurred/double vision?denies.?TMJ?denies.?Discharge/drainage?denies.?Implants?denies.?Sore throat?denies.?Dental implants?denies.?Hard of hearing ?denies.?Difficulty chewing/swallowing/speaking?denies.?Nose bleeds?denies.?Sore mouth?denies.?Respiratory:?On Oxygen?denies.?Pneumonia/pleurisy?denies.?Bronchitis?denies.?Emphysema?denies.?C oughing?denies.?Cough blood?denies.?Shortness of breath?denies.?Wheezing?denies.?Cardiovascular:?Pacemaker?denies.?MVP?denies.?WPW?denies.?CHF?denies.?Heart attack?denies.?Septal defect?denies.?Rapid beat?denies.?Chest pain ?denies.?Atrial Fib.?denies.?Murmur/Palpitations?denies.?Gastrointestinal:?Hemorrhoids?denies.?Stomach/Abdominal pain?denies.?Dark blood stool?denies.?Irritable bowel ?denies.?Constipation?denies.?Diarrhea?denies.?Hematology:?Swelling?admits.?Clots?denies.?Varicose Veins?denies.?Bruising?denies.?Bleeding problem?denies.?Genitourinary:?Blood urine?denies.?Frequent/Painfu/urination/bladder control?denies.?Kidney stones?denies.?Infection (UTI)?denies.?Nephropathy?denies.?sex trans dis (STD)?denies.?Prostate?denies.?Musculoskeletal:?Hammertoes?denies.?Bunions?denies.?Back Pain?denies.?Muscle Cramps/ Resting?denies.?Muscle cramps / walking?denies.?Generalized aches and pains?denies.?Weakness?denies.?Integ.:?Lea?denies.?Scars?denies.?Corns/calluses?admits.?Ingrown nails?admits.?Painful nails?admits.?Open Sores?, admits.?Rashes?denies.?Neurologic:?Difficulty sleeping?denies.?Brain disorder?denies.?Numbness?denies.?Balance trouble?denies.?Confusion?denies.?Fainting/blackouts?denies.?Tingling?denies.?Tr emors?denies.? * Medical History:? [...] (Standard)?Tobacco use:?Nonsmoker ?Additional Findings: Tobacco non-user?Current nonsmoker ???Miscellaneous:?Caffeine: yes, 1-2 cups per day. ?Children: no. ?Exercise: no. ?Marital status: single. ?Occupation: Retired. * Medications:?TakingLevothyro xine Sodium 100 MCG Tablet Oral Losartan Potassium 100 MG Tablet Oral Metoprolol Succinate ER 25 MG Tablet Extended Release 24 Hour Oral Amoxicillin 875 MG Tablet Oral Taking Levothyroxine Sodium 100 MCG Tablet Oral Taking Losartan Potassium 100 MG Tablet Oral Taking Metoprolol Succinate ER 25 MG Tablet Extended Release 24 Hour Oral Taking Amoxicillin 875 MG Tablet Oral Not-Taking/PRNMetoprolol Succinate Losartan Potassium Levothyroxine Sodium Medication List reviewed and reconciled with the patientNot-Taking/PRN Metoprolol Succinate Not-Taking/PRN Losartan Potassium Not-Taking/PRN Levothyroxine Sodium Medication List reviewed and reconciled with the patient * Allergies:?PercocetOxycodone Cardizemyes[Allergies Verified] Objective: * Vitals:?Ht: 5ft7in, Wt:150, BMI:23.49, Shoe size: 6.5, BP:120/80mm Hg, Ht-cm: 170.18 cm, Wt-k.04 kg. * Examination: ???Dermatologic: ?ULCER:? LOCATION,T5, Dorsal, SIZE, 8mm X 4mm X 2-3mm, BASE, fibro- granular, RIM, hyperkeratotic, UNDERMINING, mild, TRACKING, Sub Q with Fat layer exposed, DRAINAGE, serosanguineous, moderate, NECROTIC TISSUE, loosely-adherent, yellow slough, MALODOR, absent, CALOR, trace, ERYTHEMA, trace.? Assessment: * Assessment: 1.?Skin ulcer of toe of righ t foot with fat layer exposed - L97.512 (Primary)??? Plan: * Treatment: * Procedures:?Debride skin and subQ:?Open wound?Physician of record performed open wound selective debridement of devitalized necrotic/nonviable soft tissue, fibrin, exudate, epidermis, dermis, thru skin and subcutaneous fat tissue, first 20 sq cm or less, using sharp dissection with sterile 15 blade, and/or tissue nippers. ANESTHESIA- was accomplished TOPICALLY with Lidocaine Hydrochloride Jelly 2 percent, Sterile antibiotic dressing applied. Hemostasis was controlled through direct pressure. Post debridement measurements: 10mm x4 mm x 3mm. Character of the wound post debriement is stable (90275).? * Procedure Codes:?52569 DEBRI DE SKIN/TISSUE, Modifiers: T5 * Preventive Medicine:? ??Counseling:?Ulcer:?A detailed plan of care was reviewed with the patient. We emphasized the fact that the patient takes on an active participating role in the treatment process and emphasized to them that they are an included, valued, and important member of the wound healing team in order to reach an expedient successful outcome. The patient agreed to follow their medically recommended diet while increasing their protein intake if safely able to do so, maintain proper bodily hydration, abide by weight-bearing restrictions at all times, quit all current smoking habits if any, and diligently follow any/all dressing change instructions. It was clearly made known to the patient that if they fail to do their part, they will likely extend their course of treatment as well as possibly increase their risk of adverse events including amputation. The patient was instructed on importance of proper wound care consisting of pressure reduction, and proper maintenance of a moist wound environment. The patient is to cleanse the wound with warm soapy water/peroxide/saline, or betadine BID based on product availability. The patient is to apply ( NEOSPORIN, POLYSPORIN, or TRIPLE OINTMENT, ____) Antibiotic to the wound and cover with a DSD as directed. The patient was instructed to change dressings according to orders, or PRN saturation, leaks. The patient was instructed to monitor and report any signs or symptoms of infection or any untoward reactions. Precautions Taken: Offloading/Pressure reduction via rest/ limited activity to essential to daily life only, cane/ crutches/ walker/ knee scooter/ wheelchair, shoe modification, accommodative padding, sharp debridement, and take/apply medication as directed. THE SHORT-TERM GOALS of wound care include, prevent hospitalization, debridement to remove devitalized tissue, minimize risk for soft tissue or bone infection, initiate and promote the wound healing process, and prevent further complication such as loss of limb or life were discussed/reviewed. THE LONG-TERM GOALS of wound care include, complete wound closure if possible, facilitate patient comfort, prevent recurrence, and return the patient to their pre-ulcerative state of activity and lifestyle if possible, Debridement frequency as indicated, Every 5-8 weeks until healed.? * Follow Up:?6 Weeks * Images: * Sign off status: Completed true * Provider:Keo Mueller DPM Date:?2024 Generated for Felicia denny/Robi/Deanitting on:?02/04/2025 08:37 AM EDT History and Physical Notes * HPI (History of Present Illness) Category Sub-Category Detail Notes Category Not es Skin problems Nature: Open sore Treatments: Topical abx, soaks Examination Category Sub-Category Detail Notes Category Not es Dermatologic ULCER: LOCATION,T5, Valentin samia, SIZE, 8mm X 4mm X 2-3mm, BASE, fibro-granular, RIM, hyperkeratotic, UNDERMINING, mild, TRACKING, Sub Q with Fat layer exposed, DRAINAGE, serosanguineous, moderate, NECROTIC TISSUE, loosely-adherent, yellow slough, MALODOR, absent, CALOR, trace, ERYTHEMA, trace
--- OUTSIDE RECORDS SUMMARY | 2025-02-04 08:38 | XMS_ITS | Patient Health Record ---
Author Organization [facility] Address [address] [place] [address] Care Team Providers Care Coronary Clinical Specialist Name Role Phone Germánbalaji Cheyenne Primary Care Provider UnavailMike Meeks Jr Unavailable [phone] Allergies Allergen (clinical drug ingredient) Drug/Non Drug [...] 2.5 MG TAKE 1 TABLET BY [facility] TWICE A DAY Oral for 90 Active [...] Problem Status W/U Status Risk Notes Problem [id number] Encounter for screening for malignant neoplasm of colon (Z12.11) Active confirmed Problem 228371814 Encounter for long-term (current) use of other high-risk medications (Z79.899) Active confirmed Problem [id number] Abnormal findings in stool (R19.5) Active confirmed Plan Of Treatment Future Test Test Name Order Date COLONOSCOPY 06/30/2015 COLONOSCOPY 02/09/2022 Insurance Providers Payer Name Payer Address Payer Phone Subscriber Number Group Number Insured Name Patient Relationship to Insured Coverage Start Date Coverage End Date MEDICARE OF [place] [address] [place] [address] [id number] ANA M TEJADA Self - patient is the insured [employer] ATT[employer] CLAIMS [address] [place] [address] [id number] ANA M TEJADA Self - patient is the insured Medical (General) History Medical History History ICD Code 10/11/2003 colonoscopy, normal Anemia, with history of low white blood cells and platelets as well hypothroid hypertension hx of bilateral broken wrist 2016 Chronic kidney disease Left eye blindness Surgical History Surgery Date(Month/Year) broken wrist 2015
--- OUTSIDE RECORDS SUMMARY | 2025-02-04 08:38 | XMS_ITS | Clinical Summary ---
Author Organization [facility] Address [address] [place] [address] Phone Care Team Providers Care Tool Builder Name Role Phone Cheyenne Ladd MD Primary Care Provider [phone] Social History Tobacco Use Types Packs/Day Years [...] Screening: FIT-DNA (Cologuard) 10/13/2024 10/13/2021, 10/13/2021, 06/05/2018 COVID-19 Vaccine ( season) 2025 07/16/2024, 07/05/2023, 06/09/2022, Additional history exists DTaP,Tdap,and Td Vaccines (2 - Td or Tdap) 07/15/2030 07/15/2020 Zoster Vaccines Completed 03/25/2019, 01/16/2019 Pneumococcal Vaccine: 50+ Years Completed 06/03/2020, 07/05/2016 RSV Immunization Adult Patients Completed 06/25/2023 Influenza Vaccine Completed 07/16/2024, , 09/20/2021, Additional history exists Breast Cancer Screening Discontinued 09/06/20 24, 08/27/2023, 08/21/2022, Additional history exists HIB Vaccines Aged Out [...] age to complete this topic Meningococcal B Vaccine Aged Out No l onger eligible based on patient's age to complete [...] Signed Date: 09/09/2024 12:34 ET Workstation ID: [id number] Transcribed By: Self Edit Transcribed Date: 09/09/2024 12:28 ET Narrative 09/09/2024 12:34 PM EST EXAM: MAMMO DIGITAL SCREENING W SUNITHA BILAT EXAM DATE AND TIME: 09/06/2024 10:12 AM HISTORY: ??Screening mammogram from breast cancer COMPARISON: ??08/25/2023 through 08/16/2020 TECHNIQUE: Bilateral digital breast tomosynthesis was performed in the CC and MLO projections. Computer aided detection with iCAAmpliSense ProFound AI 3D 3.1 was employed. TISSUE DENSITY: [...] MLO projections. Computer aided detection with iCAD ProFound AI 3D 3.1was employed. TISSUE DENSITY: b. [...] Dictated Date: 09/09/2024 12:28 ET Assigned Physician: TIIT CONWAY Reviewed and Electronically Signed By: TITI CONWAY Signed Date: 09/09/2024 12:34 ET Workstation ID: [id number] Transcribed By: Self Edit Transcribed Date: 09/09/2024 12:28 ET us Self Referral Sppl IMG BI PROCEDURES Final Resul t from Last 3 Months or Most Recently Relevant to [place] [id number] MEDICARE Care Teams Tool Builder Relationship Specialty Start Date End Date Cheyenne Ladd MD [address] [facility] [address] [place] PCP - General Internal Medicine 09/21/15
--- OUTSIDE RECORDS SUMMARY | 2025-02-04 08:38 | XMS_ITS ---
Author Organization [facility] Address [address] [facility] [place] [address] Care Team Providers Care Assembler Bonding Name Role Phone Cheyenne Ladd Primary Care Provider Unavailab sadie MuellerNela Unavailable [phone] Allergies Allergen (clinical drug ingredient) Drug/Non Drug Allergy documented on EMR Reaction Allergy Type Onset Date Status diltiazem Cardizem Unknown Drug Allergy Active acetaminophen / oxycodone Percocet Unknown Drug Allergy Active oxycodone Oxycodone Unknown Drug Allergy Active REASON FOR VISIT Pcp-01/16, Ingrown nail Medications Medication SIG (Take, Route, Frequency, Duration) Notes Start Date End Date Status Amoxicillin 875 MG Oral for 10 Days Active Levothyroxine Sodium Not-Taking Losartan Potassium N ot-Taking Metoprolol Succinate Not-Taking Metoprolol Succinate ER 25 [...] non-user Current no nsmoker Vital Signs Height 5ft7in in 01/05/2025 Weight 150 lbs 01/05/2025 BMI 23.49 kg/m2 01/05/2025 Blood pressure systolic 120 mm Hg 01/06/20 25 Blood pressure diastolic 80 mm Hg 025 Procedures Procedure Date Ordered Date Performed Result Body Sit e [id number] 01/05/2025 N/A Encounters Encounter Location Date Provider Diagnosis [facility] [place] [address] [place] [address] 01/05/2025 Nela Mueller Ingrown nail L60.0 Assessments Encounter Date Diagnosis (ICD Code) Assessment Notes Treatment Notes Treatment Clinical Notes Section Notes 01/05/2025 Ingrown nail (ICD-10 - L60.0) Plan Of Treatment Pending Test Test Name Order Date [id number] 01/05/2025 Next Appt Details Follow Up: 2-4 Weeks, Reason : Provider Name:Nela Mueller , 03/19/2025 10:00:00 AM, [address] [place] [address], [place], [address], Procedure Notes * Category Sub-Category Detail Notes Matricectomy (OP NOTE) Consent The patie nt was brought to the examination room and placed on the table in a supine position. The pre/carl/postoperative course, risks, complications and alternatives were discussed, understood and accepted by the patient. No guarantees were given regarding the surgical outcome Procedure A digital prep with alcohol or betadine was performed. 3cc of 1 percent Xylocaine Plain local anesthetic was administered to the toe via digital block utilizing aseptic technique. A digital touriquet was applied. The affected toenail portion was undermined, incised and resected to the eponychium and matrix. It was noted to be significantly incurvated and hypertrophied. The nailbed and matrix were curetted and the nail groove, bed and matrix were cauterized with Phenol, 3 applications of 30 seconds each from a cotton tip applicator, no underling bone was identified. The surrounding skin was protected from the Phenol with Bacitracin ointment. The tourniquet was released and capillary fill time was intact to the digit. A sterile Bacitracin dressing was applied Disposition Disposition: The pat ient tolerated the procedure and anesthesia well and left in good condition, alert, oriented and stable in no acute distress. Local wound care instructions were discussed and dispensed. There were no complications and the prognosis is favorable, Recommended alternating/staggering Tylenol XS 2 tabs and Motrin 600mg q 6 hrs ea for discomfort, Rx narcotic postop pain meds were deferred Location , Bilateral borders, T5 Progress Notes * Dean TEJADA: [birth year] (74 yo F)Acc No.[id number]:01/05/2025 Progress Note Patient:?Annie TEJADA Provider:?Nela Mueller DPM :1950???Age:74 Y???Sex:Female D ate:01/05/2025 Address:[address] [place] [address] [address] [place] , [facility] Pcp:Cheyenne Ladd Subjective: * Chief Complaints: * ???Pcp-01/16Ingrown nail * ROS:?General/Constitutional:?Nausea?denies.?Vomiting?denies.?Hunger Thirst?denies.?Loss appetite?denies.?Chills?denies.?Fatigue?denies.?Fever?denies.?Night Sweats?denies.?Unexplained weight loss?denies.?Unexplained [...] Ht-cm: 170.18 cm, Wt-k.04 kg. * Examination: ???Ingrown Nail: ?INSPECTION:?Reveals incurvation, pain on palpation, groove hypertrophy, groove ischemia, Bilateral nail borders, T5.? Assessment: * Assessment: 1.?Ingrown nail - L60.0 (Britney brand)??? Plan: * Treatment: * Procedures:?Matricectomy (OP NOTE):?Location?, Bilateral borders, T5.?Consent?The patient was brought to the examination room and placed on the table in a supine position. The pre/carl/postoperative course, risks, complications and alternatives were discussed, understood and accepted by the patient. No guarantees were given regarding the surgical outcome.?Procedure?A digital prep with alcohol or betadine was performed. 3cc of 1 percent ?Xylocaine Plain local anesthetic was administered to the toe via digital block utilizing aseptic technique. A digital touriquet was applied. The affected toenail portion was undermined, incised and resected to the eponychium and matrix. It was noted to be significantly incurvated and hypertrophied. The nailbed and matrix were curetted and the nail groove, bed and matrix were cauterized with Phenol, 3 applications of 30 seconds each from a cotton tip applicator, no underling bone was identified. The surrounding skin was protected from the Phenol with Bacitracin ointment. The tourniquet was released and capillary fill time was intact to the digit. A sterile Bacitracin dressing was applied .?Disposition?Disposition: The patient tolerated the procedure and anesthesia well and left in good condition, alert, oriented and stable in no acute distress. Local wound care instructions were discussed and dispensed. There were no complications and the prognosis is favorable, Recommended alternating/staggering Tylenol XS 2 tabs and Motrin 600mg q 6 hrs ea for discomfort, Rx narcotic postop pain meds were deferred.? * Procedure Codes:?50667 REMOV AL OF NAIL BED, Modifiers: T5 A4550 STERILE TRAY * Follow Up:?2-4 Weeks * Images: * Sign off status: Completed true * Provider:?Nela Mueller DPM Date:?2024 Generated for Felicia denny/Robi/Deanitting on:?02/04/2025 08:37 AM EDT History and Physical Notes * Examination Category Sub-Category Detail Notes Category Not es Ingrown Nail INSPECTION: Reveals incurvat ion, pain on palpation, groove hypertrophy, groove ischemia, Bilateral nail borders, T5
== END 2025-02-04 08:52 | disposition home or self-care (01) ==
LOC: HO.HCS 08:25
PROVIDERS: PCP Internal Medicine; Visit Provider Internal Medicine
DX: I10 Essential (primary) hypertension (principal); I95.1 Orthostatic hypotension; I42.9 Cardiomyopathy, unspecified
CPT/HCPCS: 93010; 99213

== ENCOUNTER → 2025-02-04 08:24 | Outpatient (BNVA) | payer MEDICARE, SELFPAY | PROVIDERS: PCP Internal Medicine; Visit Provider Internal Medicine | DX: I10 Essential (primary) hypertension (principal); I95.1 Orthostatic hypotension; I42.9 Cardiomyopathy, unspecified | CPT/HCPCS: 93005; 99212 ==

== ENCOUNTER 2025-06-11 07:04 | Outpatient (REF) | payer MEDICARE, SELFPAY ==
--- OUTSIDE RECORDS SUMMARY | 2024-06-27 06:30 | XMS_ITS ---
Author Organization [facility] Address [address] [place] [address] Care Team Providers Care Tourist Guide Name Role Phone Cheyenne Ladd Primary Care Provider Unavailab Nela León Unavailable [phone] William Morales Unavailable [phone] REASON FOR VISIT Seen Sooner Encounters Encounter Location Date Provider Diagnosis [address] [address] 06/27/2024 William Morales Plan Of Treatment Next Appt Details Provider Name:Nela Mueller , 07/23/2025 02:15:00 PM, [address] [place] [address], [phone], Progress Notes * Annie TEJADADOB: [birth year] (75 yo F)Acc No.[id number]:06/27/2024 Progress Note Patient: Annie VERONICA Provider: Parish Morales DPM :1950 A ge:74 Y S ex:Female Date:06/27/2024 Address:[address] [place] [address] [place] Pcp:Cheyenne Ladd Subjective: * Chief Complaints: * [...] Morales DPM Date: 1 Generated for Felicia denny/Robi/Millie on: 0 06/11/2025 07:07 AM EDT
--- OUTSIDE RECORDS SUMMARY | 2025-06-11 07:07 | XMS_ITS | Clinical Summary ---
Author Organization [facility] Address [address] [place] [address] Phone Care Team Providers Care Sandblast Operator Name Role Phone Cheyenne Ladd MD Primary [...] Cancer Screening: Sigmoidoscopy 1999 Influenza Vaccine (#1) 2025 Colorectal Cancer Screening: Colonoscopy 02/06/2033 02/06/2023 Hepatitis B Vaccine Aged Out No longe r eligible based on patient's age to complete this topic Insurance [facility] Medicare [facility] Medicare Care Teams Sandblast Operator Relationship Specialty Start Date End Date Cheyenne Ladd MD [address] [place] [address] [address] [place], [place] PCP - General 10/04/20
--- OUTSIDE RECORDS SUMMARY | 2025-06-11 07:07 | XMS_ITS | Clinical Summary ---
Author Organization [facility] Address [address] [place] [address] Phone Care Team Providers Care Online Health And Fitness Coach Name Role Phone Cheyenne Ladd MD Primary Care Provider [phone] Social History Tobacco Use Types Packs/Day Years [...] Health Maintenance Due Date Last Done Comments Falls Risk Assessment 08/27/2022 Hepatitis C Screening 08/27/2022 Medicare Annual Wellness Visit 08/27/2022 Osteoporosis Screening (Bone Density Screening) 08/27/2022 Social Influencers of Health Screening 08/27/2022 Depression Screening 09/24/2024 Colorectal Cancer Screening: FIT-DNA (Cologuard) 10/13/2024 10/13/2021, 10/13/2021, 06/05/2018 COVID-19 Vaccine ( season) 2025 07/16/2024, 07/05/2023, 06/09/2022, Additional history exists Influenza Vaccine (#1) 2025 , 06/25/2023, 09/20/2021, Additional history exists DTaP,Tdap,and Td Vaccines (2 - Td or Tdap) 07/15/2030 07/15/2020 Zoster Vaccines Completed 03/25/2019, 01/16/2019 Pneumococcal Vaccine: 50+ Years Completed 06/03/2020, 07/05/2016 RSV Immunization Adult Patients Completed 06/25/2023 Breast Cancer Screening Discontinued 09/06/20 24, 08/27/2023, [...] EST Stable mammographic appearance of the breasts. No evidence of malignancy is seen. A negative mammogram in the presence of a clinically suspicious palpable abnormality does not preclude the possibility of malignancy or alter the indications for biopsy. BI-RADS: Category 1: Negative RECOMMENDATION(S): 1: Routine screening mammogram BILATERAL in 1 year. -------- FINAL REPORT -------- Dictated By: TITI CONWAY Dictated Date: 09/09/2024 12:28 ET Assigned Physician: TITI CONWAY Reviewed and Electronically Signed By: TITI CONWAY Signed Date: 09/09/2024 12:34 ET Workstation ID: [id number] Transcribed By: Self Edit Transcribed Date: 09/09/2024 12:28 ET Narrative 09/09/2024 12:34 PM EST EXAM: MAMMO DIGITAL SCREENING W SUNITHA BILAT EXAM DATE AND TIME: 09/06/2024 10:12 AM HISTORY: Screening mammogram from breast cancer COMPARISON: 08/25/2023 through 08/16/2020 TECHNIQUE: Bilateral digital breast tomosynthesis was performed in the CC and MLO projections. Computer aided detection with iCAD ProFound AI 3D 3.1 was employed. TISSUE [...] Signed Date: 09/09/2024 12:34 ET Workstation ID: [id number] Transcribed By: Self Edit Transcribed Date: 09/09/2024 12:28 ET us Self Referral Sppl IMG BI PROCEDURES Final Resul t from Last 3 Months or Most Recently Relevant to [place] [address] MEDICARE Care Teams Online Health And Fitness Coach Relationship Specialty Start Date End Date Cheyenne Ladd MD [address] [facility] [address] PCP - General Internal Medicine 09/21/15
--- OUTSIDE RECORDS SUMMARY | 2025-06-11 07:07 | XMS_ITS | Patient Health Record ---
Author Organization [facility] Address [address] [facility] [place] [address] Care Team Providers Care Claim Examiner Name Role Phone Cheyenne Ladd Primary Care Provider Unavailab Mynor Leónmie Unavailable [phone] William Morales Unavailable [phone] Allergies Allergen (clinical drug ingredient) Drug/Non Drug Allergy documented on EMR Reaction Allergy Type Onset Date Status diltiazem Cardizem Unknown Drug Allergy Active acetaminophen / oxycodone Percocet Unknown Drug Allergy Active oxycodone Oxycodone Unknown Drug Allergy Active Reason For Referral No Information Medications Medication SIG (Take, Route, Frequency, Duration) Notes Start Date End Date Status Metoprolol Succinate Not-Taking Losartan Potassium N ot-Taking Levothyroxine Sodium Not-Taking Levothyroxine Sodium 100 MCG Oral; Duration: 90 Days Active Losartan Potassium 100 MG Oral; Duration : 90 Days Active Metoprolol Succinate ER 25 MG Oral; Duration: 90 Days Active Amoxicillin 875 MG Oral; Duration: 10 Days Active Immunizations Vaccine Route Administration Date Status Comme nts Influenza Unknown 05/25/2024 Administered Social History Tobacco Use: Social History Observation [...] Problem Status W/U Status Risk Notes Problem Bilateral atherosclerosis of arteries of lower limbs (disorder) (98353401873035070 ) Atherosclerosis of [place] artery of both lower extremities, with unspecified presence of clinical manifestation (I70.203) Active confirmed Q7(A), Q8(2B), Q9(1B,2 C) Problem Ulcer of toe of right foot (disorder) (10606459153875773 ) Skin ulcer of toe of right foot, limited to breakdown of skin (L97.511) Active confirmed Vital Signs Blood pressure diastolic 80 mm Hg 03/19/2025 Height 5ft7in in 03/19/2025 Blood pressure systolic 120 mm Hg 03/19/2025 Weight 150 lbs 03/19/2025 BMI 23.49 kg/m2 03/19/2025 Procedures Procedure Date Ordered Date Performed Result Body Sit e 29627-Rbrzhxur Plate 06/24/2024 N/A 93336-INL 01/05/2025 N/A 91571-CNPEOGI SKIN/TISSUE 01/19/2025 N/A 49111- Debride <25 sq cm 03/19/2025 N/A Encounters Encounter Location Date Provider Diagnosis [address] [address] 06/24/2024 William Juliounier Atherosclerosis of [place] artery of both lower extremities, with unspecified presence of clinical manifestation I70.203 and Ingrown nail L60.[address] [address] 11/11/2024 Nela Black Ingrown nail L60.[address] [address] 01/05/2025 Nela Black Ingrown nail L60.[address] [address] 01/19/2025 Nela Black Skin ulcer of toe of right foot with fat layer exposed L97.[address] [address] 03/19/2025 Nela Black Skin ulcer of toe of right foot, limited to breakdown of skin L97.[address] [address] 05/13/2025 Nela Black Assessments Encounter Date Diagnosis (ICD Code) Assessment Notes Treatment Notes Treatment Clinical Notes Section Notes 06/24/2024 Ingrown nail (ICD-10 - L60.0) 06/24/2024 Atherosclerosis of [place] artery of both lower extremities, with unspecified presence of clinical manifestation (ICD-10 - I70.203) Q7(A), Q8(2B), Q9(1B,2C) 11/11/2024 Ingrown nail (ICD-10 - L60.0) 01/05/2025 Ingrown nail (ICD-10 - L60.0) 03/19/2025 Skin ulcer of toe of right foot, limited to breakdown of skin (ICD-10 - L97.511) Patient Educated with: WOUND CARE INSTRUCTIONS. pdf (WOUND CARE INSTRUCTIONS. pdf) 01/19/2025 Skin ulcer of toe of right foot with fat layer exposed (ICD-10 - L97.512) Patient Educated with: WOUND CARE INSTRUCTIONS. pdf (WOUND CARE INSTRUCTIONS. pdf) 01/19/2025 Other Plan Of Treatment Pending Test Test Name Order Date 58164-Junqkquy Plate 01/25/2024 70549-Fomgfxpn Plate 06/24/2024 40076-LEU 01/05/2025 22688- Debride <25 sq cm 02/11/2024 53120- Debride <25 sq cm 03/19/2025 44745-XJAZBQQ SKIN/TISSUE 01/19/2025 Next Appt Details Provider Name:Nela Mueller , 07/23/2025 02:15:00 PM, [address] [facility], [place], [address], Insurance Providers Payer Name Payer Address Payer Phone Subscriber Number Group Number Insured Name Patient Relationship to Insured Coverage Start Date Coverage End Date Medicare National [facility] [address] [place] [address] [id number] Annie Kaufman Self - patient is the insured [employer] [address] [place] [address] [id number] Annie Kaufman Self - patient is the insured Medical (General) History Medical History History ICD Code High blood pressure Kidney disease Measles Mumps Chicken pox Joint implants/screws Thyroid disorder Surgical History Surgery Date(Month/Year) broken wrists 04/2016
--- OUTSIDE RECORDS SUMMARY | 2025-06-11 07:07 | XMS_ITS | Patient Health Record ---
Author Organization [facility] Address [address] [place] [address] Care Team Providers Care Critical Care Transport Nurse Name Role Phone Germánbalaji Cheyenne Primary Care Provider UnavailMike Meeks Jr Unavailable [phone] Allergies Allergen (clinical drug ingredient) Drug/Non [...] 2.5 MG TAKE 1 TABLET BY MO [facility] TWICE A DAY Oral for 90 Active [...] Problem Status W/U Status Risk Notes Problem 131896274 Encounter for screening for malignant neoplasm of colon (Z12.11) Active confirmed Problem 236459228 Encounter for long-term (current) use of other high-risk medications (Z79.899) Active confirmed Problem 907433189 Abnormal findings in stool (R19.5) Active confirmed Plan Of Treatment Future Test Test Name Order Date COLONOSCOPY 06/30/2015 COLONOSCOPY 02/09/2022 Insurance Providers Payer Name Payer Address Payer Phone Subscriber Number Group Number Insured Name Patient Relationship to Insured Coverage Start Date Coverage End Date MEDICARE OF [place] [address] [place] [address] [id number] ANA M TEJADA Self - patient is the insured MED[employer] ATTN CLAIMS [address] [place] [address] [id number] ANA M TEJADA Self - patient is the insured Medical (General) History Medical History History ICD Code 10/11/2003 colonoscopy, normal Anemia, with history of low white blood cells and platelets as well hypothroid hypertension hx of bilateral broken wrist 2016 Chronic kidney disease Left eye blindness Surgical History Surgery Date(Month/Year) broken wrist 2015
[2025-06-11 07:15] LABS: MANUAL DIFF FLAG NO
[2025-06-11 07:41] LABS: Hematocrit 40.3 % (37.0-47.0); Hemoglobin 13.1 g/dl (12.0-16.0); Imm Gran Abs Auto 0.01 X10*3/uL (0.00-0.03); Imm Gran Pct Auto 0.2 % (0.0-0.4); Lymphocytes Absolute Auto 1.7 X10*3/uL (1.2-4.9); Mean Corpuscular HGB Conc 32.5 g/dl (31.0-35.0); Mean Corpuscular Hemoglobin 29.8 pg (27.0-33.0); Mean Corpuscular Volume 91.8 fL (80.0-98.0); NRBC Abs Auto 0.000 X10*3/uL (0.0-0.012); NRBC Pct Auto 0.0 /100WBC (0.0-0.2); Platelet Count 153 X10*3/uL (160-400); Red Blood Count 4.39 X10*6/uL (4.20-5.50); White Blood Count 4.2 X10*3/uL (4.8-10.8)
[2025-06-11 09:13] LABS: Alanine Aminotransferase 15 U/L (0-31); Albumin Level 4.4 g/dL (3.5-5.0); Alkaline Phosphatase 55 U/L (39-117); Anion Gap 9 (12-20); Aspartate Amino Transferase 21 U/L (5-31); Blood Urea Nitrogen 24 mg/dL (9-16); Calcium 9.2 mg/dL (8.4-10.2); Carbon Dioxide 30 mmol/L (22-29); Chloride 108 mmol/L (96-108); Estimated Glomerular Filt Rate 43; Potassium 4.5 mmol/L (3.3-5.1); Sodium 142 mmol/L (135-145); Thyroid Stimulating Hormone 6.04 uIU/mL (0.32-4.0); Total Protein 7.3 g/dL (6.5-8.0)
== END 2025-06-11 07:05 | disposition home or self-care (01) ==
LOC: HO.LAB 07:04
PROVIDERS: PCP Internal Medicine; Visit Provider Internal Medicine
DX: I12.9 Hypertensive chronic kidney disease with stage 1 through stage 4 chronic kidney disease, or unspecified chronic kidney disease (principal); N18.30 Chronic kidney disease, stage 3 unspecified; I95.1 Orthostatic hypotension; D69.6 Thrombocytopenia, unspecified; E03.9 Hypothyroidism, unspecified
CPT/HCPCS: 36415; 80053; 84443; 85025

== ENCOUNTER 2025-06-15 09:48 | Outpatient (AMB) | payer MEDICARE, SELFPAY ==
--- OUTSIDE RECORDS SUMMARY | 2024-06-27 06:30 | XMS_ITS ---
Author Organization [facility] Address [address] [place] [address] Care Team Providers Care Bread Dumper Name Role Phone Cheyenne Ladd Primary Care Provider Unavailab Nela León Unavailable [phone] William Morales Unavailable [phone] REASON FOR VISIT Seen Sooner Encounters Encounter Location Date Provider Diagnosis [address] [address] 06/27/2024 William Morales Plan Of Treatment Next Appt Details Provider Name:Nela Mueller , 07/23/2025 02:15:00 PM, [address] [place] [address], [phone], Progress Notes * Annie TEJADADOB: [birth year] (75 yo F)Acc No.[id number]:06/27/2024 Progress Note Patient: Annie VERONICA Provider: Parish Morales DPM :1950 A ge:74 Y S ex:Female Date:06/27/2024 Address:[address] [place] [address] [place] Pcp:Cheyenne Ladd Subjective: * Chief Complaints: * 1 . Seen Sooner. * Medical History: Objective: * Vitals: Assessment: Plan: * Treatment: * Images: * The named appointment provid er may or may not be the originator of this progress note, and it is not deemed complete until electronically signed by the appointment provider. Sign off status: Pending * Provider: Parish Morales DPM Date: 1 Generated for Felicia denny/Robi/Millei on: 0 06/15/2025 11:56 AM EDT
[2025-06-15 09:49] VITALS: BP 220/110; BMI 23.3
--- NOTE | 2025-06-15 09:49 | HO.NEPHOV_ITS ---
Vital Signs 06/15/25 09:49 Height 5 ft 7 in Weight 149 lb BMI 23.3 BP 220/110 H Blood Pressure Location Lt brachial Position Sitting Intake Visit Reasons: FU-Conf [employer] [id number] Required: No Accompanied by: Self / Same As Patient Allergies diltiazem (From CARDIZEM) Allergy (Intermediate, Verified 06/15/25 09:52) RASH ITCHING oxycodone (OXYCODONE) Allergy (Unknown, Verified 06/15/25 09:52) NAUSEA & VOMITING Medication List - Last Reconciled 06/15/25 by Pravin Echeverria MD levothyroxine 100 mcg PO DAILY losartan 100 mg PO DAILY@2200 metoprolol succinate ER 25 mg PO DAILY HPI Comments Details: 73-year-old woman with a history of supine hypertension and orthostatic hypotension. Renal function stable. Occasionally she has lightheadedness when she stands up, but reports this has been much better recently. Currently she is on losartan 100 mg and metoprolol 25 mg q.p.m.. no longer taking midodrine (previously on for intermittently low BP) She is being followed by Cardiology and his tilt-table test was done, this was consistent with orthostatic hypotension. reports dizziness is well-controlled at this time, only if she stands up quickly otherwise doing ok she is drinking lots of fluids throughout the day she is not taking any nsaids or other OTC medications she does not take her BP regularly at home, reports over last few months her dizziness has been well-controlled no OTC nsaids no new dyspnea, LE swelling (chronic left lower extremity swelling for many years, reports remains unchanged) reports chronic urinary urgency during the day, no recent changes 12/16/24 Not using TEDs 06/15/25 - The patient is a 75-year-old female presenting with hypotension. - Reports dizziness upon standing, persistent. - On losartan and metoprolol; no syncope episodes. - Chronic Kidney Disease: Stable creatinine at 1.23 mg/dL. - Insufficient water intake noted. - Hypothyroidism: Managed with levothyroxine, possible underactivity. - Peripheral edema present, not using compression stockings. [facility] Medical History History of palpitations History of orthostatic hypotension Thrombocytopenia Leukopenia History of fracture of wrist HTN (hypertension) Hypothyroid CKD (chronic kidney disease) Blind left eye Surgical History Hx of colonoscopy History of surgery on wrist Family History Mother Heart problem H/O heart bypass surgery Father Heart problem H/O heart bypass surgery Sister Heart problem H/O heart bypass surgery Social History Patient Tobacco Use Status: Former Tobacco user Physical Exam Vital Signs: Last Vital Signs BP 220/110 H 06/15/25 09:49 BMI result Body Mass Index 23.3 160/100 Sitting 100/60 standing Const General: comfortable and no acute distress Orientation/consciousness: patient oriented x3 Neck Neck: Yes supple Resp Auscultation: clear to auscultation bilaterally Cardio Jugular venous distension: no JVD Rate: regular rate GI Palpation (GI): Soft to palpation Auscultation: normal bowel sounds General: Yes no CVA tenderness Back/Spine/Pelvis Back: no CVA tenderness Skin General skin exam: no rashes or lesions noted Neuro General: patient oriented x3 and moves all extremities Extrem General: Yes no pedal edema (chronic left ankle swelling, reports chronic for years/unchanged ) Results Reviewed Nephrology Results: Hgb, (12.0-16.0) 13.1 g/dl 06/11/25 WBC, (4.8-10.8) 4.2 X10*3/uL L 06/11/25 Plt Count, (160-400) 153 X10*3/uL L 06/11/25 Sodium, (135-145) 142 mmol/L 06/11/25 Potassium, (3.3-5.1) 4.5 mmol/L 06/11/25 Chloride, (96-108) 108 mmol/L 06/11/25 Carbon Dioxide, (22-29) 30 mmol/L H 06/11/25 BUN, (9-16) 24 mg/dL H 06/11/25 Creatinine, (0.5-1.4) 1.23 mg/dL 06/11/25 Calcium, (8.4-10.2) 9.2 mg/dL 06/11/25 Assessment & Plan Assessment & Plan (1) Orthostatic hypotension: Comment: Supine hypertension with orthostatic hypotension. Code(s): I95.1 - Orthostatic hypotension Category: Medical Plan: Stable advised continue current medication regimen to control blood pressure (metoprolol 25mg nightly, losartan 100mg daily in the nightly) continue to push fluids to help reduce orthostasis she will continue to check blood pressure, particularly if symptomatic Discussed all orthostatic precautions including JUD stockings Renal function stable Cr 1.18 Plan 06/15/25 Plan 1. Supine HTN with orthostatic Hypotension - Continue losartan and metoprolol at night - Monitor blood pressure at home. - Use compression stockings to reduce BP drop. Orthostatic precautions 2. Chronic Kidney Disease Cr close to baseline - Monitor creatinine levels. - Ensure adequate hydration. 3. Hypothyroidism - Continue levothyroxine 100 mcg. - Monitor thyroid function tests and follow with PCP 4. Peripheral Edema - Use compression stockings as weather cools. Patient Instructions - Continue taking losartan and metoprolol as prescribed at night - Check your blood pressure at home if you feel dizzy. - Drink plenty of water to help your kidneys function well. - Wear compression stockings to help with leg swelling, especially as it gets cooler. - Continue taking levothyroxine and follow up on thyroid tests. Orders: Orders 2 Basic Metabolic Panel 1 Year I95.1 - Orthostatic hypotension Coding Level of Care Code Est Pt Level 4 (86756) Diagnoses Orthostatic hypotension I95.1
--- OUTSIDE RECORDS SUMMARY | 2025-06-15 11:56 | XMS_ITS | Patient Health Record ---
Author Organization [facility] Address [address] [facility] [place] [address] Care Team Providers Care Court Usher Name Role Phone Cheyenne Ladd Primary Care Provider Unavailab Mynor Leónmie Unavailable [phone] William Morales Unavailable [phone] Allergies Allergen (clinical drug ingredient) Drug/Non Drug [...] atherosclerosis of arteries of lower limbs (disorder) (78361608511645195 ) Atherosclerosis of [place] artery of both lower extremities, with unspecified presence of clinical manifestation (I70.203) Active confirmed Q7(A), Q8(2B), Q9(1B,2 C) Problem Ulcer of toe of right foot (disorder) (68984240132754520 ) Skin ulcer of toe of right foot, limited to breakdown of skin (L97.511) Active confirmed Vital Signs Blood pressure diastolic 80 mm Hg 03/19/2025 Height 5ft7in in 03/19/2025 Blood pressure systolic 120 mm Hg 03/19/2025 Weight 150 lbs 03/19/2025 BMI 23.49 kg/m2 03/19/2025 Procedures Procedure Date Ordered Date Performed Result Body Sit e 69355-Atgsgexi Plate 06/24/2024 N/A 88376-CVU 01/05/2025 N/A 94545-DQQOQZM SKIN/TISSUE 01/19/2025 N/A 11944- Debride <25 sq cm 03/19/2025 N/A Encounters Encounter Location Date Provider Diagnosis [address] [address] 06/24/2024 William Juliounier Atherosclerosis of [place] artery of both lower extremities, with unspecified presence of clinical manifestation I70.203 and Ingrown nail L60.[address] [address] 11/11/2024 Nela Black Ingrown nail L60.[address] [address] 01/05/2025 Nela Black Ingrown nail L60.[address] [address] 01/19/2025 Nela Black Skin ulcer of toe of right foot with fat layer exposed L97.[address] [address] 03/19/2025 Nela Black Skin ulcer of toe of right foot, limited to breakdown of skin L97.[address] [address] 05/13/2025 Nela Black Assessments Encounter Date Diagnosis (ICD Code) Assessment Notes Treatment Notes Treatment Clinical Notes Section Notes 06/24/2024 Ingrown nail (ICD-10 - L60.0) 06/24/2024 Atherosclerosis of [place] artery of both lower extremities, with unspecified [...] Treatment Pending Test Test Name Order Date 48310-Gfiqrjeg Plate 01/25/2024 33348-Ozpshcta Plate 06/24/2024 89303-NJO 01/05/2025 58413- Debride <25 sq cm 02/11/2024 56887- Debride <25 sq cm 03/19/2025 56643-AYDFJJT SKIN/TISSUE 01/19/2025 Next Appt Details Provider Name:Nela Mueller , 07/23/2025 02:15:00 PM, [address] [facility], [place], [address], Insurance Providers Payer Name Payer Address Payer Phone Subscriber Number Group Number Insured Name Patient Relationship to Insured Coverage Start Date Coverage End Date Medicare National [facility] [address] [place] [address] [id number] Annie Kaufman Self - patient is the insured [employer] Blue [employer] [address] [place] [address] [id number] Annie Kaufman Self - patient is the insured Medical (General) History Medical History History ICD Code High blood pressure Kidney disease Measles Mumps Chicken pox Joint implants/screws Thyroid disorder Surgical History Surgery Date(Month/Year) broken wrists 04/2016
--- OUTSIDE RECORDS SUMMARY | 2025-06-15 11:56 | XMS_ITS | Clinical Summary ---
Author Organization [facility] Address [address] [place] [address] Phone Care Team Providers Care Distribution Engineer Name Role Phone Cheyenne Ladd MD [...] patient's age to complete this topic Insurance [facility] Medicare [facility] Medicare Care Teams Distribution Engineer Relationship Specialty Start Date End Date Cheyenne Ladd MD [address] [place] [address] [address] [place], [place] PCP - General 10/04/20
--- OUTSIDE RECORDS SUMMARY | 2025-06-15 11:57 | XMS_ITS | Patient Health Record ---
Author Organization [facility] Address [address] [place] [address] Care Team Providers Care Certified Industrial Hygienist Name Role Phone Germánbalaji Cheyenne Primary Care [...] 2.5 MG TAKE 1 TABLET BY MO [facility] TWICE A DAY Oral for 90 [...] Problem Status W/U Status Risk Notes Problem 828274953 Encounter for screening for malignant neoplasm of colon (Z12.11) Active confirmed Problem 635040678 Encounter for long-term (current) use of other high-risk medications (Z79.899) Active confirmed Problem 235559431 Abnormal findings in stool (R19.5) Active confirmed Plan Of Treatment Future Test Test Name Order Date COLONOSCOPY 06/30/2015 COLONOSCOPY 02/09/2022 Insurance Providers Payer Name Payer Address Payer Phone Subscriber Number Group Number Insured Name Patient Relationship to Insured Coverage Start Date Coverage End Date MEDICARE OF [place] [address] [place] [address] [id number] ANA M TEJADA Self - patient is the insured MED[employer] ATTN CLAIMS [address] [place] [address] [id number] ANA M TEJADA Self - patient is the insured Medical (General) History Medical History History ICD Code 10/11/2003 colonoscopy, normal Anemia, with history of low white blood cells and platelets as well hypothroid hypertension hx of bilateral broken wrist 2016 Chronic kidney disease Left eye blindness Surgical History Surgery Date(Month/Year) broken wrist 2015
--- OUTSIDE RECORDS SUMMARY | 2025-06-15 11:57 | XMS_ITS | Clinical Summary ---
Author Organization [facility] Address [address] [place] [address] Phone Care Team Providers Care C Software Developer Name Role Phone Cheyenne aLdd MD Primary Care Provider [phone] Social History Tobacco Use Types Packs/Day Years [...] Signed Date: 09/09/2024 12:34 ET Workstation ID: [id number] Transcribed By: Self Edit Transcribed Date: 09/09/2024 [...] Signed Date: 09/09/2024 12:34 ET Workstation ID: [id number] Transcribed By: Self Edit Transcribed Date: 09/09/2024 12:28 ET us Self Referral Sppl IMG BI PROCEDURES Final Resul t from Last 3 Months or Most Recently Relevant [place] [id number] MEDICARE Care Teams C Software Developer Relationship Specialty Start Date End Date Cheyenne Ladd MD [address] [facility] [address] PCP - General Internal Medicine 09/21/15
== END 2025-06-15 10:08 | disposition home or self-care (01) ==
LOC: HO.HKA 09:48
PROVIDERS: PCP Internal Medicine; Visit Provider Internal Medicine Hypertension Specialist
DX: I95.1 Orthostatic hypotension (principal)
CPT/HCPCS: 99214

== ENCOUNTER → 2025-06-15 09:48 | Outpatient (BNVA) | payer MEDICARE, SELFPAY | PROVIDERS: PCP Internal Medicine; Visit Provider Internal Medicine Hypertension Specialist | DX: I95.1 Orthostatic hypotension (principal) | CPT/HCPCS: 99212 ==